=== PATIENT | female | born 1940 | race Caucasian/White ===

== ENCOUNTER 2017-09-12 07:30 | Day surgery (SDC) | payer OTHER ==
[2017-09-11 16:09] LABS: Absolute Lymphocytes (CBC) 1.9 K/uL (0.7-4.9); Absolute Monocytes 1.5 K/uL (0.1-1.3); Absolute Neutrophil 4.1 K/uL (1.8-8.0); Basophils % 0.8 % (0-1.3); Hematocrit 43.8 % (36.0-45.0); Lymphocytes % 24.5 % (15.3-44.8); MCH 31.4 pg (27.0-35.0); MCV 92.8 fL (80-100); MPV 7.3 fL (7.6-11.3); Monocytes % 19.1 % (3.3-12.3); RBC Red Blood Cell Count 4.72 M/uL (3.86-4.86)
[2017-09-11 16:24] LABS: Potassium 4.2 mEq/L (3.6-5.0)
--- NOTE | 2017-09-11 16:48 | EKG ---
Test Date: 2017-09-11 Test Time: 15:36:20 [employer] Teacher: HALIE MEASUREMENT RESULTS: Intervals: Rate: 74 ID: [id number] QRSD: 86 QT: 374 QTc: 415 [place]: P: 76 ID: [id number] QRS: 57 T: 50 INTERPRETIVE STATEMENTS: Normal sinus rhythm Normal ECG Compared to ECG 01/24/2017 10:09:42 ST (T wave) deviation no longer present Electronically Signed On 09-11-17 16:48:05 CDT by Rei Pickard
[2017-09-11 17:47] LABS: Protime INR 1.11
[2017-09-11 19:08] LABS: Blood Morphology Comment NOT SEEN (NOT SEEN); Platelet Estimate ADEQ; Urine White Blood Cell Casts OK
[2017-09-12] MEDS ORDERED: NA CHLORIDE 0.9% 500 ML ONE (07:41)
[2017-09-12 08:01] VITALS: TEMP 97
[2017-09-12] MEDS ORDERED: MIDAZOLAM HCL 2 MG/2 ML INJ ONE (08:43)
[2017-09-12] MEDS ORDERED: LIDOCAINE 1% 20 ML MDV ONE (08:43)
[2017-09-12] MEDS ORDERED: HEPA 1000U/500MLS 1,000 UNIT/500 ML BAG IV ONE (08:43)
[2017-09-12] MEDS ORDERED: METHYLPREDNISOLONE 125 MG INJ ONE (08:55)
[2017-09-12 11:12] VITALS: BP 132/54
[2017-09-12 11:14] VITALS: O2SAT 93
--- NOTE | 2017-09-13 10:35 | OP ---
Surgeon: Flako Sorenson MD Temporary Help Agency Referral Clerk: Lona Douglas. Final assessment at this time is severe right carotid stenosis. Indications: The patient was admitted as an outpatient for carotid angiography secondary to document ed carotid stenosis by Doppler. Procedure In Detail: She was prepped and draped in the routine sterile fashion. She was given 2 mg of Versed for IV sedation. Right common femoral artery access was obtained with a 6-Bhutanese sheath. Angiography there was normal. Angio-Seal was used to close the case. A right Renate catheter was u sed to cannulate the common carotid artery. Angiography there showed 90% stenosis of the proximal-to -mid right internal carotid artery. The left carotid was cannulated using a 3DRC catheter. Her left carotid showed a 50% stenosis. Total conscious sedation was 30 minutes. Complications: None. Estimated Blood Loss: 5 cc. Plan: The plan for the right carotid endarterectomy. The patient has her film with her. She will s ee Dr. Burnette as an outpatient and can have the procedure done. The case was discussed with the family. MERT/JAVAD Voice ID: [id number] Report ID: [id number]
== END 2017-09-12 11:35 | disposition home or self-care (01) ==
LOC: CCL 07:30
DX: I65.23 Occlusion and stenosis of bilateral carotid arteries (principal); I70.213 Atherosclerosis of native arteries of extremities with intermittent claudication, bilateral legs; I10 Essential (primary) hypertension; E78.6 Lipoprotein deficiency; E11.9 Type 2 diabetes mellitus without complications; J44.9 Chronic obstructive pulmonary disease, unspecified; Z88.3 Allergy status to other anti-infective agents
CPT/HCPCS: 36222; 36415; 80048; 82962 ×2; 85025; 85610; 85730; 93005; C1760; C1893; J2250; J2930

== ENCOUNTER 2017-09-29 15:30 | Emergency (ER) | payer OTHER ==
--- OUTSIDE RECORDS SUMMARY | 2017-09-29 15:32 | XMS REPORT | Clinical Summary ---
:1940 Author Organization [facility] Address [address] [place] [address] Phone Care Team Providers Name Role Phone Unavailable Primary Care Provider Unavailable Allergies Active Allergy Reactions Severity Noted Date Comments Povidone-Iodine Swelling 09/26/2017 Current Medications Prescription Sig. Disp. Refills Start End Date Status Date traZODone (DESYREL) 150 MG Take 75 mg by mouth Active tablet nightly. metFORMIN (GLUCOPHAGE) 500 Take 250 mg by mouth Active MG tablet 2 (two) times daily with breakfast and dinner . FLUoxetine (PROZAC) 40 MG Take 40 mg by mouth Active capsule daily. buPROPion (WELLBUTRIN SR) Take 150 mg by mouth Active 150 MG 12 hr tablet 2 (two) times daily. clopidogrel (PLAVIX) 75 mg Take 75 mg by mouth Active tablet daily. propranolol (INDERAL) 60 MG Take 60 mg by mouth Active tablet 2 (two) times daily. gabapentin (NEURONTIN) 300 Take 300 mg by mouth Active MG capsule 2 (two) times daily 1 bkt, 2 @@night . niacin (NIASPAN) 1000 MG CR Take 1,000 mg by Active tablet mouth nightly. cycloSPORINE (RESTASIS) Place 2 drops into Active 0.05 % ophthalmic emulsion both eyes 2 (two) times daily. montelukast (SINGULAIR) 10 Take 10 mg by mouth Active mg tablet nightly. umeclidinium-vilanterol Inhale 1 puff by Active (ANORO ELLIPTA) 62.5-25 mouth via inhaler mcg/actuation DsDv daily. cyanocobalamin (VITAMIN Inject 1,000 mcg Active B-12) 1,000 mcg/mL intramuscularly injection every 14 (fourteen) days. calcium carbonate-vitamin Take 1 tablet by Active D3 (CALCIUM-VITAMIN D) 500 mouth 2 (two) times mg(1,250mg) -200 unit per daily with breakfast tablet and dinner. vitamins A,C,U-scpm-aghejf Take by mouth 2 Active (PRESERVISION AREDS) (two) times daily. 14,320-226-200 qqth-tg-rzrq Cap multivitamin per tablet Take 1 tablet by Active mouth daily. TURMERIC ROOT EXTRACT ORAL Take by mouth Active nightly. carboxymethylcellulose Place 1 drop into Active (REFRESH PLUS) 0.5 % Dpet both eyes 3 (three) ophthalmic solution times daily as needed. lamoTRIgine (LAMICTAL) 150 Take 150 mg by mouth Active MG tablet daily. thyroid, pork, 90 mg Tab Take 30 mg by mouth Active daily. Active Problems No known active problems Encounters Date Type Specialty Care Team Description 09/26/2017 Hospital Encounter Jean Marie Burnette MD Arrived 09/26/2017 Office Visit Cardiology Jean Marie Burnette MD Bilateral carotid artery disease (HCC) (Primary Dx) 09/26/2017 Orders Only Cardiology Jean Marie Burnette MD Bilateral carotid artery disease (HCC) after 09/28/2016 Family History Medical History Relation Name Comments Heart disease Father Heart disease Mother Relation Name Status Comments Father Mother Social History Tobacco Use Types Packs/Day Years Used Date Former Smoker Smokeless Tobacco: Never Used Tobacco Cessation: Counseling Given: No Comments: quit 1994 Alcohol Use Drinks/Week oz/Week Comments No Sex Assigned at Date Recorded Not on file Last Filed Vital Signs Vital Sign Reading Time Taken Blood Pressure 190/86 09/26/2017 8:12 AM CDT Pulse 117 09/26/2017 8:12 AM CDT Temperature 36.2 C (97.2 F) 09/26/2017 8:12 AM CDT Respiratory Rate 18 09/26/2017 8:12 AM CDT Oxygen Saturation 93% 09/26/2017 8:12 AM CDT Inhaled Oxygen Concentration - - Weight 80.2 kg (176 lb 14.4 oz) 09/26/2017 8:12 AM CDT Height 157.5 cm (5' 2") 09/26/2017 8:12 AM CDT Body Mass Index 32.36 09/26/2017 8:12 AM CDT Plan of Treatment Date Type Specialty Care Team Description 10/05/2017 Surgery Jean Marie Burnette MD ENDARTERECTOMY,CAROTID [address] [place] [address] [phone] 10/05/2017 Procedure Pass 10/05/2017 Hospital Encounter Jean Marie Burnette MD [address] [place] [address] [phone] Health Maintenance Due Date Last Done Comments INFLUENZA VACCINE 03/05/2018 Results TRANSFUSION SERVICE REPORT - SCAN (09/27/2017 5:44 PM)XR chest 2 views (2017 11:33 AM) Specimen Performing Laboratory GE RIS Narrative FINAL REPORT Chest two views INDICATION: Preoperative exam. Bilateral carotid artery disease. COMPARISON: None available IMPRESSION: Lung hyperinflation may reflect obstructive lung disease. Bibasilar opacities suggest atelectasis or scarring. Biapical opacities also suggest scarring and/or post treatment changes. Advise follow up imaging to confirm stability. No consolidation, edema, pleural effusion, or pneumothorax is seen. Heart size is within normal limits. Mild aortic tortuosity and calcification, osteopenia, and degenerative spine changes are present. There has been prior mastectomy and axillary dissection. Signed: Angely Webber MD Report Verified Date/Time:09/26/2017 11:54:23 Reading Location: [facility] Reading Room Procedure Note Interface, External Ris In - 09/26/2017 11:56 AM CDT FINAL REPORT Chest two views INDICATION: Preoperative exam. Bilateral carotid artery disease. COMPARISON: None available IMPRESSION: Lung hyperinflation may reflect obstructive lung disease. Bibasilar opacities suggest atelectasis or scarring. Biapical opacities also suggest scarring and/or post treatment changes. Advise follow up imaging to confirm stability. No consolidation, edema, pleural effusion, or pneumothorax is seen. Heart size is within normal limits. Mild aortic tortuosity and calcification, osteopenia, and degenerative spine changes are present. There has been prior mastectomy and axillary dissection. Signed: Angely Webber MD Report Verified Date/Time: 09/26/2017 11:54:23 Reading Location: [facility] Reading Room Type and screen, automated (09/26/2017 11:13 AM) Component Value Ref Range ABO/RH AUTOMATED (BEAKER) O POSITIVE Ab Scrn NEGATIVE Specimen Performing Laboratory Blood [address] [address] CBC with platelet count + automated diff (09/26/2017 11:13 AM) Component Value Ref Range WBC 8.4 3.5 - 10.5 K/L RBC 4.48 3.93 - 5.22 M/L Hemoglobin 14.3 11.2 - 15.7 GM/DL Hematocrit 42.9 34.1 - 44.9 % MCV 95.8 (H) 79.4 - 94.8 fL MCH 31.9 25.6 - 32.2 pg MCHC 33.3 32.2 - 35.5 GM/DL RDW 14.0 11.7 - 14.4 % Platelets 290 150 - 450 K/CU MM MPV 9.0 (L) 9.4 - 12.3 fL nRBC 0 0 - 0 /100 WBC % Neutros 68 % % Lymphs 18 % % Monos 11 % % Eos 1 % % Baso 1 % # Neutros 5.75 1.56 - 6.13 K/L # Lymphs 1.49 1.18 - 3.74 K/L # Monos 0.90 (H) 0.24 - 0.36 K/L # Eos 0.11 0.04 - 0.36 K/L # Baso 0.09 (H) 0.01 - 0.08 K/L Immature Granulocytes-Relative 1 0 - 1 % Specimen Performing Laboratory Blood [address] [address] Prothrombin time/INR (09/26/2017 11:13 AM) Component Value Ref Range Protime 14.3 11.7 - 14.7 seconds INR 1.1 <=5.9 Specimen Performing Laboratory Blood [address] [address] Narrative RECOMMENDED COUMADIN/WARFARIN INR THERAPY RANGES STANDARD DOSE: 2.0 - 3.0 Includes: PROPHYLAXIS for venous thrombosis, systemic embolization; TREATMENT for venous thrombosis and/or pulmonary embolus. HIGH RISK: Target INR is 2.5-3.5 for patients with mechanical heart valves. CBC with platelet count + automated diff (09/26/2017 11:13 AM) Specimen Performing Laboratory Blood Narrative The following orders were created for panel order CBC with platelet count + automated diff. Procedure Abnormality Status --------- ------ CBC with platelet count ...[[id number]]AbnormalFinal result Please view results for these tests on the individual orders. Hemoglobin A1c (09/26/2017 11:13 AM) Component Value Ref Range Hemoglobin A1C 5.9 4.3 - 6.1 % Specimen Performing Laboratory Blood [address] [address] Basic Metabolic Panel (09/26/2017 11:13 AM) Component Value Ref Range Sodium 137 136 - 145 meq/L Potassium 4.2 3.5 - 5.1 meq/L Chloride 105 98 - 107 meq/L CO2 22 22 - 29 meq/L BUN 15 7 - 21 mg/dL Creatinine 0.84 0.57 - 1.25 mg/dL Glucose 92 70 - 105 mg/dL Calcium 9.8 8.4 - 10.2 mg/dL EGFR 66Comment: ESTIMATED GFR IS NOT ACCURATE mL/min/1.73 sq m CREATININE CLEARANCE IN PREDICTING GLOMERULAR FILTRATION RATE. ESTIMATED GFR IS NOT APPLICABLE FOR DIALYSIS PATIENTS. Specimen Performing Laboratory Blood [address] [address] ECG 12 lead (May substitute report if done w/in last 3 months) (09/26/2017 10: 50 AM) Specimen Performing Laboratory [place] [facility] Narrative Ventricular Rate 90 BPM Atrial Rate 90 BPM P-R Interval 156 ms QRS Duration 90 ms Q-T Interval 380 ms QTC Calculation(Bazett) [address] 118 degrees Normal sinus rhythm Abnormal QRS-T angle, consider primary T wave abnormality Abnormal ECG No previous ECGs available Confirmed by Cece Dorantes Alireaz ([id number]) on 09/27/2017 10:24:09 PM Procedure Note Interface, External Ris In - 09/27/2017 10:24 PM CDT Ventricular Rate 90 BPM Atrial Rate 90 BPM P-R Interval 156 ms QRS Duration 90 ms Q-T Interval 380 ms QTC Calculation(Bazett) [address] 58 [address] 118 degrees Normal sinus rhythm Abnormal QRS-T angle, consider primary T wave abnormality Abnormal ECG No previous ECGs available Confirmed by Cece Dorantes Alireaz ([id number]) on 09/27/2017 10:24:09 PM after 09/28/2016
--- OUTSIDE RECORDS SUMMARY | 2017-09-29 15:32 | XMS REPORT ---
:1940 [facility] Address [facility] [address] [place] [address] Care Team Providers Name Role Phone ANNETTE MEZA Unavailable Unavailable Problems This patient has no known problems. Allergies, Adverse Reactions, Alerts This patient has no known allergies or adverse reactions. Medications This patient has no known medications. Results Test Description Test Time Test Comments Text Results Atomic Results Result Comments HEMOGLOBIN A1C 2017-09-26 16:54:00 Test Item Value Reference Range Comments HEMOGLOBIN A1C (BEAKER) (test cwwz=291) 5.9 % 4.3-6.1 BASIC METABOLIC [id number] 12:35:00 Test Item Value Reference Range Comments SODIUM (BEAKER) (test 137 meq/L 136-145 dhlg=998) POTASSIUM (BEAKER) (test 4.2 meq/L 3.5-5.1 brgm=221) CHLORIDE (BEAKER) (test 105 meq/L 98-107 kldy=636) CO2 (BEAKER) (test 22 meq/L 22-29 mjmw=408) BLOOD UREA NITROGEN 15 mg/dL 7-21 (BEAKER) (test lpwq=077) CREATININE (BEAKER) (test 0.84 mg/dL 0.57-1.25 phen=729) GLUCOSE RANDOM (BEAKER) 92 mg/dL 70-105 (test uqkt=089) CALCIUM (BEAKER) (test 9.8 mg/dL 8.4-10.2 bmhe=485) EGFR (BEAKER) (test 66 mL/min/1.73 sq m ESTIMATED GFR IS NOT wzjm=1839) ACCURATE CREATININE CLEARANCE IN PREDICTING GLOMERULAR FILTRATION RATE. ESTIMATED GFR IS NOT APPLICABLE FOR DIALYSIS PATIENTS. PROTHROMBIN [id number] 12:34:00 Test Item Value Reference Range Comments PROTIME (BEAKER) (test ovir=571) 14.3 seconds 11.7-14.7 INR (BEAKER) (test hlho=954) 1.1 <=5.9 RECOMMENDED COUMADIN/WARFARIN INR THERAPY RANGESSTANDARD DOSE: 2.0 - 3.0 Includes: PROPHYLAXIS forvenous thrombosis, systemic embolization; TREATMENT for venous thrombosis and/or pulmonary embolus.HIGH RISK: Target INR is 2.5-3.5 for patients with mechanical heart valves.CBC W/PLT COUNT & AUTO [id number] 12:30:00 Test Item Value Reference Range Comments WHITE BLOOD CELL COUNT (BEAKER) (test cxmp=236) 8.4 K/ L 3.5-10.5 RED BLOOD CELL COUNT (BEAKER) (test gaip=916) 4.48 M/ L 3.93-5.22 HEMOGLOBIN (BEAKER) (test kasd=135) 14.3 GM/DL 11.2-15.7 HEMATOCRIT (BEAKER) (test zhhl=962) 42.9 % 34.1-44.9 MEAN CORPUSCULAR VOLUME (BEAKER) (test kjye=134) 95.8 fL 79.4-94.8 MEAN CORPUSCULAR HEMOGLOBIN (BEAKER) (test 31.9 pg 25.6-32.2 gzoy=585) MEAN CORPUSCULAR HEMOGLOBIN CONC (BEAKER) (test 33.3 GM/DL 32.2-35.5 truu=924) RED CELL DISTRIBUTION WIDTH (BEAKER) (test 14.0 % 11.7-14.4 gctz=715) PLATELET COUNT (BEAKER) (test elpi=511) 290 K/CU MM 150-450 MEAN PLATELET VOLUME (BEAKER) (test lmvz=355) 9.0 fL 9.4-12.3 NUCLEATED RED BLOOD CELLS (BEAKER) (test 0 /100 WBC 0-0 hdhk=088) NEUTROPHILS RELATIVE PERCENT (BEAKER) (test 68 % wqdw=943) LYMPHOCYTES RELATIVE PERCENT (BEAKER) (test 18 % vial=444) MONOCYTES RELATIVE PERCENT (BEAKER) (test 11 % wfck=200) EOSINOPHILS RELATIVE PERCENT (BEAKER) (test 1 % bzqi=330) BASOPHILS RELATIVE PERCENT (BEAKER) (test 1 % uadx=642) NEUTROPHILS ABSOLUTE COUNT (BEAKER) (test 5.75 K/ L 1.56-6.13 nklc=880) LYMPHOCYTES ABSOLUTE COUNT (BEAKER) (test 1.49 K/ L 1.18-3.74 lusu=391) MONOCYTES ABSOLUTE COUNT (BEAKER) (test 0.90 K/ L 0.24-0.36 vlgu=570) EOSINOPHILS ABSOLUTE COUNT (BEAKER) (test 0.11 K/ L 0.04-0.36 jmyb=508) BASOPHILS ABSOLUTE COUNT (BEAKER) (test 0.09 K/ L 0.01-0.08 qvrd=150) IMMATURE GRANULOCYTES-RELATIVE PERCENT (BEAKER) 1 % 0-1 (test wnla=7944) RAD, CHEST, 2 [id number] 11:54:00Reason for Exam:->Pre-OpFINAL REPORT Chest two views INDICATION: Preoperative exam. Bilateral carotidartery disease. COMPARISON: None available IMPRESSION: Lung hyperinflation may reflect obstructive lung disease. Bibasilar opacities suggest atelectasis or scarring. Biapical opacities also suggest scarring and/ or post treatment changes. Advise follow up imaging to confirm stability. No consolidation,edema, pleural effusion, or pneumothorax is seen. Heart size is within normal limits. Mild aortic tortuosity and calcification, osteopenia, and degenerative spine changes are present. There has been prior mastectomy and axillary dissection. Signed: Angely Webber Verified Date/Time: 09/26/2017 11:54:23 Reading Location: [facility] Reading Room
[2017-09-29] MEDS ORDERED: TETANUS & DIPHTHERIA TOX,ADULT 0.5 ML VIAL ONE (17:14)
--- NOTE | 2017-09-29 17:16 | ER ---
Nurse's Notes [facility] Name: Lizbeth Plata Age: 77 yrs Sex: Female : 1940 Arrival Date: 09/29/2017 Time: 15:33 Bed 10 Private MD: Diagnosis: Cellulitis of right lower limb Presentation: 09/29 15:34 Presenting complaint: Patient states: i slipped and hurt my R lower leg and had an open hj wound, it happened around Monday of this week; i applied Neosporin; denies fever and chills;. Transition of care: patient was not received from another setting of care. Onset of symptoms was September 29, 2017. Initial Sepsis Screen: Does the patient meet any 2 criteria? No. Patient's initial sepsis screen is negative. Does the patient have a suspected source of infection? No. Patient's initial sepsis screen is negative. Care prior to arrival: None. 15:34 Method Of Arrival: Ambulatory 15:34 Acuity: SYLVIA 4 hj Triage Assessment: 15:39 General: Appears in no apparent distress. uncomfortable, Behavior is calm, cooperative, hj appropriate for age. Pain: Complains of pain in right chavez. Historical: - Allergies: 15:39 Betadine; hj 15:39 Sulfa (Sulfonamide Antibiotics); hj 15:39 Iodine; hj - Home Meds: 15:39 Metformin Oral [Active]; thyroid (pork) oral oral 1 tab once daily [Active]; trazodone hj 150 mg Oral tab 0.5 tab nightly [Active]; Prozac 40 mg Oral cap 1 cap once daily [Active]; Wellbutrin oral 1 tab daily [Active]; Neurontin 300 mg Oral cap 1 cap nightly [Active]; Niaspan Extended-Release 1,000 mg Oral Tb24 1 tab once daily [Active]; Restasis 0.05 % ophthalmic dpet 1 drop 2 times per day [Active]; Singulair 10 mg Oral tab 1 tab once daily [Active]; Lamictal 150 mg Oral tab 1 tab once daily [Active]; - PMHx: 15:39 Hypothyroidism; Parkinsons; hj - PSHx: 15:39 Bilateral Breast Mastectomy; hj - Immunization history:: Adult Immunizations up to date. - Social history:: Smoking status: Patient/guardian denies using tobacco, Patient/guardian denies using alcohol. Screenin:23 Abuse screen: Denies threats or abuse. Denies injuries from another. Nutritional hj screening: No deficits noted. Tuberculosis screening: No symptoms or risk factors identified. Fall Risk None identified. Assessment: 17:21 General: Appears in no apparent distress. Behavior is calm, cooperative. Pain: iw Complains of pain in right chvaez. Neuro: Level of Consciousness is awake, alert, obeys commands, Oriented to person, place, time, situation, Moves all extremities. Cardiovascular: Patient's skin is warm and dry. Respiratory: Respiratory effort is even, unlabored, Respiratory pattern is regular, symmetrical. Derm: Wound noted right chavez. Musculoskeletal: Range of motion: intact in all extremities. Vital Signs: 15:40 BP 151 / 62; Pulse 85; Resp 18; Temp 97.8(O); Pulse Ox 97% on R/A; Weight 79.38 kg; hj Height 5 ft. 2 in. (157.48 cm); Pain 0/10; 15:40 Body Mass Index 32.01 (79.38 kg, 157.48 cm) hj ED Course: 15:33 Patient arrived in ED. mr 15:36 Triage completed. hj 15:40 Arm band placed on right wrist. hj 16:18 Umair Crowley PA is PHCP. cp 16:18 Jimy Marino MD is Attending Physician. cp 16:24 Patient has correct armband on for positive identification. Placed in gown. Bed in low hj position. Call light in reach. Adult w/ patient. 17:02 Laurel Bonilla, RN is Primary Nurse. iw 17:22 No provider procedures requiring assistance completed. Patient did not have IV access iw during this emergency room visit. Administered Medications: 17:18 Drug: Tetanus-Diphtheria Toxoid Adult 0.5 ml {Health Support Specialist: [employer]. Exp: iw 01/05/2020. Lot #: [id number]. } Route: IM; Site: right gluteus; Outcome: 17:15 Discharge ordered by . cp 18:04 Patient left the ED. iw Signatures: Caridad Schafer Laurel Bonilla, RN RN Alan Rose RN RN Umair Crowley PA PA cp Corrections: (The following items were deleted from the chart) 15:43 15:40 Pulse 85bpm; Resp 18bpm; Pulse Ox 97% RA; Temp 97.8F Oral; 79.38 kg; Height 5 ft. hj 2 in.; BMI: 32.0; Pain 0/10; hj
--- NOTE | 2017-09-29 17:16 | EDPHYS ---
Physician Documentation [facility] Name: Lizbeth Plata Age: 77 yrs Sex: Female : 1940 Arrival Date: 09/29/2017 Time: 15:33 Bed 10 Private MD: ED Physician Jimy Marino HPI: 09/29 16:58 This 77 yrs old Female presents to ER via Ambulatory with complaints of Wound cp Infection. 16:58 The patient presents with an injury. cp 16:58 The complaints affect the right chavez. cp 16:58 Context: misstep causing abrasion to anterior lower leg. cp 16:58 Onset: The symptoms/episode began/occurred 3 day(s) ago. Associated signs and symptoms: cp Pertinent positives: swelling, warmth, Pertinent negatives calf tenderness, fever. Treatment prior to arrival includes: over the counter medications, Neosporin. Historical: - Allergies: 15:39 Betadine; hj 15:39 Sulfa (Sulfonamide Antibiotics); hj 15:39 Iodine; hj - Home Meds: 15:39 Metformin Oral [Active]; thyroid (pork) oral oral 1 tab once daily [Active]; trazodone hj 150 mg Oral tab 0.5 tab nightly [Active]; Prozac 40 mg Oral cap 1 cap once daily [Active]; Wellbutrin oral 1 tab daily [Active]; Neurontin 300 mg Oral cap 1 cap nightly [Active]; Niaspan Extended-Release 1,000 mg Oral Tb24 1 tab once daily [Active]; Restasis 0.05 % ophthalmic dpet 1 drop 2 times per day [Active]; Singulair 10 mg Oral tab 1 tab once daily [Active]; Lamictal 150 mg Oral tab 1 tab once daily [Active]; - PMHx: 15:39 Hypothyroidism; Parkinsons; hj - PSHx: 15:39 Bilateral Breast Mastectomy; hj - Immunization history:: Adult Immunizations up to date. - Social history:: Smoking status: Patient/guardian denies using tobacco, Patient/guardian denies using alcohol. ROS: 17:00 Constitutional: Negative for body aches, chills, fever, poor PO intake. cp 17:00 Eyes: Negative for injury, pain, redness, and discharge. cp 17:00 Cardiovascular: Negative for chest pain, edema, palpitations. 17:00 Respiratory: Negative for cough, shortness of breath, wheezing. 17:00 Skin: Positive for cellulitis, of the anterior aspect right lower leg. 17:00 All other systems are negative. Exam: 17:05 Constitutional: The patient appears in no acute distress, alert, awake, non-toxic, well cp developed, well nourished. 17:05 Head/Face: Normocephalic, atraumatic. cp 17:05 Eyes: Periorbital structures: appear normal, Conjunctiva: normal, no exudate, no cp injection, Lids and lashes: appear normal, bilaterally. 17:05 ENT: External ear(s): are unremarkable, Nose: is normal, Mouth: is normal. 17:05 Chest/axilla: Inspection: normal. 17:05 Cardiovascular: Rate: normal. 17:05 Respiratory: the patient does not display signs of respiratory distress, Respirations: normal, no use of accessory muscles, no retractions, no splinting, no tachypnea, labored breathing, is not present. 17:05 Abdomen/GI: Exam negative for discomfort, distension, guarding, Inspection: abdomen appears normal. 17:05 Skin: abscess, not appreciated, cellulitis, that is mild, well demarcated, on the anterior aspect right lower leg. Vital Signs: 15:40 BP 151 / 62; Pulse 85; Resp 18; Temp 97.8(O); Pulse Ox 97% on R/A; Weight 79.38 kg; hj Height 5 ft. 2 in. (157.48 cm); Pain 0/10; 15:40 Body Mass Index 32.01 (79.38 kg, 157.48 cm) MDM: 16:18 Patient medically screened. cp 17:15 Data reviewed: vital signs, nurses notes, and as a result, I will discharge patient. cp Administered Medications: 17:18 Drug: Tetanus-Diphtheria Toxoid Adult 0.5 ml {Escrow Manager: [employer]. Exp: iw 01/05/2020. Lot #: [id number]. } Route: IM; Site: right gluteus; Disposition: 18:56 Co-signature as Attending Physician, Jimy Marino MD I agree with the assessment and kdr plan of care. Disposition: 09/29/17 17:15 Discharged to Home. Impression: Cellulitis of right lower limb. - Condition is Stable. - Discharge Instructions: Cellulitis. - Prescriptions for Clindamycin HCl 300 mg Oral Capsule - take 1 capsule by ORAL route every 6 hours for 10 days; 40 capsule. - Medication Reconciliation Form, Thank You Letter, Antibiotic Education, Prescription Opioid Use form. - Follow up: Private Physician; When: 2 - 3 days; Reason: Wound Recheck. - Problem is new. - Symptoms are unchanged. Signatures: Jimy Marino MD MD kdr Williams, Irene, RN RN iw Alan Rose RN RN Umair Arana PA PA cp
[2017-09-29 18:07] VITALS: BP 151/62; TEMP 97.8; O2SAT 97
== END 2017-09-29 18:04 | disposition home or self-care (01) ==
LOC: ER 15:30
DX: L03.115 Cellulitis of right lower limb (principal); E03.9 Hypothyroidism, unspecified; G20 Parkinson's disease; Z88.2 Allergy status to sulfonamides; Z91.09 Other allergy status, other than to drugs and biological substances
CPT/HCPCS: 90714; 99282

== ENCOUNTER 2018-01-07 09:54 | Inpatient (IN) | payer OTHER ==
--- OUTSIDE RECORDS SUMMARY | 2018-01-07 09:56 | XMS REPORT | Clinical Summary ---
:1940 Author Organization [facility] Address [address] [place] [address] Phone Care Team Providers Name Role Phone Unavailable Primary Care Provider Unavailable Allergies Active Allergy Reactions Severity Noted Date Comments Povidone-Iodine Swelling 09/26/2017 Current Medications Prescription Sig. Disp. Refills Start End Status Date Date traZODone (DESYREL) 150 Take 75 mg by Active MG tablet mouth nightly. FLUoxetine (PROZAC) 40 MG Take 40 mg by Active capsule mouth daily. buPROPion (WELLBUTRIN SR) Take 150 mg by Active 150 MG 12 hr tablet mouth 2 (two) times daily. clopidogrel (PLAVIX) 75 Take 75 mg by Active mg tablet mouth daily. propranolol (INDERAL) 60 Take 60 mg by Active MG tablet mouth 2 (two) times daily. gabapentin (NEURONTIN) Take 300 mg by Active 300 MG capsule mouth 2 (two) times daily 1 bkt, 2 @@night . niacin (NIASPAN) 1000 MG Take 1,000 mg by Active CR tablet mouth nightly. cycloSPORINE (RESTASIS) Place 2 drops into Active 0.05 % ophthalmic both eyes 2 (two) emulsion times daily. montelukast (SINGULAIR) Take 10 mg by Active 10 mg tablet mouth nightly. umeclidinium-vilanterol Inhale 1 puff by Active (ANORO ELLIPTA) 62.5-25 mouth via inhaler mcg/actuation DsDv daily. cyanocobalamin (VITAMIN Inject 1,000 mcg Active B-12) 1,000 mcg/mL intramuscularly injection every 14 (fourteen) days. calcium carbonate-vitamin Take 1 tablet by Active D3 (CALCIUM-VITAMIN D) mouth 2 (two) 500 mg(1,250mg) -200 unit times daily with per tablet breakfast and dinner. vitamins Take by mouth 2 Active A,C,F-mbza-rmxnhs (two) times daily. (PRESERVISION AREDS) [phone] uxzg-cd-khsn Cap multivitamin per tablet Take 1 tablet by Active mouth daily. TURMERIC ROOT EXTRACT Take by mouth Active ORAL nightly. carboxymethylcellulose Place 1 drop into Active (REFRESH PLUS) 0.5 % Dpet both eyes 3 ophthalmic solution (three) times daily as needed. lamoTRIgine (LAMICTAL) Take 150 mg by Active 150 MG tablet mouth daily. thyroid, pork, 90 mg Tab Take 30 mg by Active mouth daily. aspirin 325 MG EC tablet Take 1 tablet (325 0 10/07/ Active mg total) by mouth 18 019 daily. metFORMIN (GLUCOPHAGE) Take 0.5 tablets 0 10/08/19 Active 500 MG tablet (250 mg total) by 18 mouth 2 (two) times daily with breakfast and dinner Restart when your diet returns to normal. metFORMIN (GLUCOPHAGE) Take 250 mg by Discontinued 500 MG tablet mouth 2 (two) 018 times daily with breakfast and dinner . metFORMIN (GLUCOPHAGE) Take 0.5 tablets 0 10/07/20 Discontinued 500 MG tablet (250 mg total) by 18 018 mouth 2 (two) times daily with breakfast and dinner Restart when your diet return to normal. Active Problems Problem Noted Date Carotid stenosis, asymptomatic 10/06/2017 History of depression 10/06/2017 Hypothyroidism 10/06/2017 History of mastectomy, bilateral: with radiation 10/06/2017 Carotid stenosis, asymptomatic, right 10/05/2017 Carotid artery occlusion Sleep apnea CPAP (continuous positive airway pressure) dependence Asthma COPD (chronic obstructive pulmonary disease) (HCC) Parkinson disease (HCC) Diabetes mellitus type 2, noninsulin dependent (HCC) Hyperlipidemia Hypertension Breast cancer (HCC) Overview: breast Encounters Date Type Specialty Care Team Description 10/05/2017 - Hospital Encounter Cardiology Jean Marie Burnette, Carotid stenosis, 10/06/2017 asymptomatic, right (Primary Dx) 10/05/2017 Procedure Pass 10/05/2017 Surgery Jean Marie Burnette, ENDARTERECTOMY,CAROTID 10/04/2017 Anesthesia Event Satnam Alexander MD 09/26/2017 Hospital Encounter Jean Marie Burnette MD 09/26/2017 Office Visit Cardiology Jean Marie Burnette, Bilateral carotid MD artery disease (HCC) (Primary Dx);Bilateral carotid artery occlusion;Sleep apnea, unspecified type;CPAP (continuous positive airway pressure) dependence;Asthma, unspecified asthma severity, unspecified whether complicated, unspecified whether persistent;Chronic obstructive pulmonary disease, unspecified COPD type (HCC);Parkinson disease (HCC);Diabetes mellitus type 2, noninsulin dependent (HCC) 09/26/2017 Orders Only Cardiology Jean Marie Brunette Bilateral carotid MD artery disease (HCC) after 01/06/2017 Family History Medical History Relation Name Comments Heart disease Father Heart disease Mother Relation Name Status Comments Father Mother Social History Tobacco Use Types Packs/Day Years Used Date Former Smoker Quit: 1984 Smokeless Tobacco: Never Used Tobacco Cessation: Counseling Given: No Comments: quit 1994 Alcohol Use Drinks/Week oz/Week Comments No Sex Assigned at Date Recorded Not on file Last Filed Vital Signs Vital Sign Reading Time Taken Blood Pressure 132/61 10/06/2017 11:50 AM CDT Pulse 82 10/06/2017 11:50 AM CDT Temperature 35.8 C (96.5 F) 10/06/2017 11:50 AM CDT Respiratory Rate 20 10/06/2017 11:50 AM CDT Oxygen Saturation 94% 10/06/2017 11:50 AM CDT Inhaled Oxygen Concentration - - Weight 78.6 kg (173 lb 4.8 oz) 10/06/2017 7:37 AM CDT Height 157.5 cm (5' 2") 10/05/2017 7:42 AM CDT Body Mass Index 31.7 10/06/2017 7:37 AM CDT Plan of Treatment Health Maintenance Due Date Last Done Comments INFLUENZA VACCINE 03/05/2018 Procedures Procedure Name Priority Date/Time Associated Diagnosis Comments ENDARTERECTOMY,CAROTID 10/05/2017 1:19 PM Stenosis of right CDT carotid artery after 01/06/2017 Results RHYTHM STRIP - SCAN (10/09/2017 11:00 AM)CBC (Hemogram only) (10/06/2017 3:44 AM) Component Value Ref Range WBC 7.7 3.5 - 10.5 K/L RBC 3.84 (L) 3.93 - 5.22 M/L Hemoglobin 11.9 11.2 - 15.7 GM/DL Hematocrit 37.3 34.1 - 44.9 % MCV 97.1 (H) 79.4 - 94.8 fL MCH 31.0 25.6 - 32.2 pg MCHC 31.9 (L) 32.2 - 35.5 GM/DL RDW 14.5 (H) 11.7 - 14.4 % Platelets 245 150 - 450 K/CU MM MPV 9.2 (L) 9.4 - 12.3 fL nRBC 0 0 - 0 /100 WBC Specimen Performing Laboratory Blood [address] [address] Magnesium (10/06/2017 3:44 AM) Component Value Ref Range Magnesium 1.6 1.6 - 2.6 mg/dL Specimen Performing Laboratory Blood [address] [address] Basic Metabolic Panel (10/06/2017 3:44 AM)Only the most recent of2 resultswithin the time period is included. Component Value Ref Range Sodium 135 (L) 136 - 145 meq/L Potassium 4.2 3.5 - 5.1 meq/L Chloride 104 98 - 107 meq/L CO2 21 (L) 22 - 29 meq/L BUN 16 7 - 21 mg/dL Creatinine 0.82 0.57 - 1.25 mg/dL Glucose 99 70 - 105 mg/dL Calcium 8.3 (L) 8.4 - 10.2 mg/dL EGFR 68Comment: ESTIMATED GFR IS NOT ACCURATE mL/min/1.73 sq m CREATININE CLEARANCE IN PREDICTING GLOMERULAR FILTRATION RATE. ESTIMATED GFR IS NOT APPLICABLE FOR DIALYSIS PATIENTS. Specimen Performing Laboratory [address] [address] POC-Glucose meter (10/05/2017 5:34 PM)Only the most recent of2 resultswithin the time period is included. Component Value Ref Range POC-Glucose Meter 122 (H)Comment: TESTED AT [address] 70 - 110 mg/[place] [address] Specimen Performing Laboratory Blood [address] [address] Tissue Exam (10/05/2017 1:00 PM) Component Value Ref Range Case Report Surgical Pathology Report Case: [id number] Authorizing Provider:Jean Marie Burnette MDCollected: 10/05/2017 1300 Ordering Location: [facility] Received: 10/05/2017 1424 PERIOPERATIVE SERVICES Pathologist: Rubens Lipscomb MD Specimen:Plaque, RIGHT CAROTID ARTERY PLAQUE DIAGNOSIS ARTERY, RIGHT CAROTID, ENDARTERECTOMY: CALCIFIC ATHEROSCLEROTIC PLAQUE Signing Pathologist Direct Phone Line: [phone] CPT Code(s) 93796; 86727 CLINICAL HISTORY Carotid stenosis SPECIMEN SOURCE Right carotid artery plaque GROSS DESCRIPTION The specimen is received in saline labeled with the patient's information labeled "right carotid artery plaque" and consists of a tubular shaped segment of calcified tissue measuring 2.5 cm in length x 0.5 cm in diameter. The specimen is sectioned, submitted entirely A1 for decalcification. CG/pl Specimen Performing Laboratory [place] [address] TRANSFUSION SERVICE REPORT - SCAN (09/27/2017 5:44 [...] MD Report Verified Date/Time:09/26/2017 11:54:23 Reading Location: [facility] Reading Room Procedure Note Interface, External Ris [...] Report Verified Date/Time: 09/26/2017 11:54:23 Reading Location: [facility] Reading Room Type and screen, automated (09/26/2017 11:13 AM) Component Value Ref Range ABO/RH AUTOMATED (BEAKER) O POSITIVE Ab Scrn NEGATIVE Specimen Performing Laboratory Blood [address] [address] CBC with platelet count + automated diff [...] - 1 % Specimen Performing Laboratory Blood [address] [address] Prothrombin time/INR (09/26/2017 11:13 AM) Component Value Ref Range Protime 14.3 11.7 - 14.7 seconds INR 1.1 <=5.9 Specimen Performing Laboratory Blood [address] [address] Narrative RECOMMENDED COUMADIN/WARFARIN INR THERAPY RANGES STANDARD [...] Status --------- ------ CBC with platelet count ...[[id number]]AbnormalFinal result Please view results for these tests on the individual orders. Hemoglobin A1c (09/26/2017 11:13 AM) Component Value Ref Range Hemoglobin A1C 5.9 4.3 - 6.1 % Specimen Performing Laboratory Blood [address] [address] ECG 12 lead (May substitute report if done w/in last 3 months) (09/26/2017 10: 50 AM) Specimen Performing Laboratory GE MUSE Narrative Ventricular Rate 90 BPM Atrial Rate 90 BPM P-R Interval 156 ms QRS Duration 90 ms Q-T Interval 380 ms QTC Calculation(Bazett) 464 ms R [place] 58 degrees [place] 118 degrees Normal sinus rhythm Abnormal QRS-T [...] 380 ms QTC Calculation(Bazett) 464 ms R [place] 58 degrees T [place] 118 degrees Normal sinus rhythm Abnormal QRS-T angle, consider primary T wave abnormality Abnormal ECG No previous ECGs available Confirmed by Cece Dorantes Alireaz ([id number]) on 09/27/2017 10:24:09 PM after 01/06/2017
--- OUTSIDE RECORDS SUMMARY | 2018-01-07 09:57 | XMS REPORT ---
:1940 Author Organization [facility] Address [address] [place] [address] [address] [place] [address] Care Team Providers Name Role Phone SILVINA BURNETTE Unavailable Unavailable Problems This patient has no known problems. Allergies, Adverse Reactions, Alerts This patient has no known allergies or adverse reactions. Medications This patient has no known medications. Results Test Description Test Time Test Comments Text Results Atomic Results Result Comments TISSUE EXAM 2017-10-10 13:16:00 Surgical Pathology Report Case: [id number] Authorizing Provider: Silvina Burnette MD Collected: 10/05/2017 1300 Ordering Location: [facility] Received: 10/05/2017 1424 PERIOPERATIVE SERVICES Pathologist: Rubens Lipscomb MD Specimen: Plaque, RIGHT CAROTID ARTERY PLAQUE ARTERY, RIGHT CAROTID, ENDARTERECTOMY:CALCIFIC ATHEROSCLEROTIC PLAQUE Signing Pathologist Direct Phone Line: [phone] signed by Rubens Lipscomb MD on 10/10/2017 at 1:16 [id number] stenosisRight carotid artery plaqueThe specimen is received in saline labeled with the patient's information labeled "right carotid artery plaque" and consists of a tubular shaped segment of calcified tissue measuring 2.5 cm in length x 0.5 cm in diameter. The specimen is sectioned, submitted entirely A1 for decalcification. CG/pl POCT-GLUCOSE METER 2017-10-09 05:33:00 Test Item Value Reference Range Comments POC-GLUCOSE METER (BEAKER) (test 122 mg/dL 70-110 TESTED AT [facility] [address] [facility] qocq=9939) [facility] [address] [id number] 05:17:00 Test Item Value Reference Range Comments MAGNESIUM (BEAKER) (test mbud=994) 1.6 mg/dL 1.6-2.6 BASIC METABOLIC [id number] 05:17:00 Test Item Value Reference Range Comments SODIUM (BEAKER) (test 135 meq/L 136-145 rkzn=804) POTASSIUM (BEAKER) (test 4.2 meq/L 3.5-5.1 dgla=868) CHLORIDE (BEAKER) (test 104 meq/L 98-107 guxe=806) CO2 (BEAKER) (test 21 meq/L 22-29 vwhk=552) BLOOD UREA NITROGEN 16 mg/dL 7-21 (BEAKER) (test nehp=625) CREATININE (BEAKER) (test 0.82 mg/dL 0.57-1.25 tqqs=675) GLUCOSE RANDOM (BEAKER) 99 mg/dL 70-105 (test dcjo=415) CALCIUM (BEAKER) (test 8.3 mg/dL 8.4-10.2 igbg=127) EGFR (BEAKER) (test 68 mL/min/1.73 sq m ESTIMATED GFR IS NOT eanr=0363) ACCURATE CREATININE CLEARANCE IN PREDICTING GLOMERULAR FILTRATION RATE. ESTIMATED GFR IS NOT APPLICABLE FOR DIALYSIS PATIENTS. CBC (HEMOGRAM ONLY)2017-10-06 04:31:00 Test Item Value Reference Range Comments WHITE BLOOD CELL COUNT (BEAKER) (test rzcq=199) 7.7 K/ L 3.5-10.5 RED BLOOD CELL COUNT (BEAKER) (test vlrp=599) 3.84 M/ L 3.93-5.22 HEMOGLOBIN (BEAKER) (test ozmk=578) 11.9 GM/DL 11.2-15.7 HEMATOCRIT (BEAKER) (test fygu=562) 37.3 % 34.1-44.9 MEAN CORPUSCULAR VOLUME (BEAKER) (test vour=547) 97.1 fL 79.4-94.8 MEAN CORPUSCULAR HEMOGLOBIN (BEAKER) (test 31.0 pg 25.6-32.2 huyo=331) MEAN CORPUSCULAR HEMOGLOBIN CONC (BEAKER) (test 31.9 GM/DL 32.2-35.5 vfdg=892) RED CELL DISTRIBUTION WIDTH (BEAKER) (test 14.5 % 11.7-14.4 xpyh=840) PLATELET COUNT (BEAKER) (test khpf=042) 245 K/CU MM 150-450 MEAN PLATELET VOLUME (BEAKER) (test afrj=755) 9.2 fL 9.4-12.3 NUCLEATED RED BLOOD CELLS (BEAKER) (test 0 /100 WBC 0-0 eggp=872) POCT-GLUCOSE [id number] 08:33:00 Test Item Value Reference Range Comments POC-GLUCOSE METER (BEAKER) 125 mg/dL 70-110 TESTED AT [facility] [address] (test qeba=1758) [facility] [address] HEMOGLOBIN [id number] 16:54:00 Test Item Value Reference Range Comments HEMOGLOBIN A1C (BEAKER) (test itni=686) 5.9 % 4.3-6.1 BASIC METABOLIC [id number] 12:35:00 Test Item Value Reference Range Comments SODIUM (BEAKER) (test 137 meq/L 136-145 hmor=497) POTASSIUM (BEAKER) (test 4.2 meq/L 3.5-5.1 lydp=253) CHLORIDE (BEAKER) (test 105 meq/L 98-107 vjsn=797) CO2 (BEAKER) (test 22 meq/L 22-29 plxc=177) BLOOD UREA NITROGEN 15 mg/dL 7-21 (BEAKER) (test ndxs=272) CREATININE (BEAKER) (test 0.84 mg/dL 0.57-1.25 vngo=615) GLUCOSE RANDOM (BEAKER) 92 mg/dL 70-105 (test bssr=051) CALCIUM (BEAKER) (test 9.8 mg/dL 8.4-10.2 xeht=901) EGFR (BEAKER) (test 66 mL/min/1.73 sq m ESTIMATED GFR IS NOT ndab=1761) ACCURATE CREATININE CLEARANCE IN PREDICTING GLOMERULAR FILTRATION RATE. ESTIMATED GFR IS NOT APPLICABLE FOR DIALYSIS PATIENTS. PROTHROMBIN TIME/[id number] 12:34:00 Test Item Value Reference Range Comments PROTIME (BEAKER) (test wqzf=171) 14.3 seconds 11.7-14.7 INR (BEAKER) (test fbjr=264) 1.1 <=5.9 RECOMMENDED COUMADIN/WARFARIN INR THERAPY RANGESSTANDARD DOSE: 2.0 - 3.0 Includes: PROPHYLAXIS forvenous thrombosis, systemic embolization; TREATMENT for venous thrombosis and/or pulmonary embolus.HIGH RISK: Target INR is 2.5-3.5 for patients with mechanical heart valves.CBC W/PLT COUNT & AUTO [id number] 12:30:00 Test Item Value Reference Range Comments WHITE BLOOD CELL COUNT (BEAKER) (test nbzw=710) 8.4 K/ L 3.5-10.5 RED BLOOD CELL COUNT (BEAKER) (test svul=873) 4.48 M/ L 3.93-5.22 HEMOGLOBIN (BEAKER) (test zolx=645) 14.3 GM/DL 11.2-15.7 HEMATOCRIT (BEAKER) (test diya=868) 42.9 % 34.1-44.9 MEAN CORPUSCULAR VOLUME (BEAKER) (test usdw=907) 95.8 fL 79.4-94.8 MEAN CORPUSCULAR HEMOGLOBIN (BEAKER) (test 31.9 pg 25.6-32.2 qrsi=741) MEAN CORPUSCULAR HEMOGLOBIN CONC (BEAKER) (test 33.3 GM/DL 32.2-35.5 fkjr=357) RED CELL DISTRIBUTION WIDTH (BEAKER) (test 14.0 % 11.7-14.4 rrfo=670) PLATELET COUNT (BEAKER) (test oyyj=001) 290 K/CU MM 150-450 MEAN PLATELET VOLUME (BEAKER) (test uffz=795) 9.0 fL 9.4-12.3 NUCLEATED RED BLOOD CELLS (BEAKER) (test 0 /100 WBC 0-0 wqtg=349) NEUTROPHILS RELATIVE PERCENT (BEAKER) (test 68 % wcxm=965) LYMPHOCYTES RELATIVE PERCENT (BEAKER) (test 18 % eyod=690) MONOCYTES RELATIVE PERCENT (BEAKER) (test 11 % vimt=298) EOSINOPHILS RELATIVE PERCENT (BEAKER) (test 1 % lnio=944) BASOPHILS RELATIVE PERCENT (BEAKER) (test 1 % lczi=208) NEUTROPHILS ABSOLUTE COUNT (BEAKER) (test 5.75 K/ L 1.56-6.13 imxk=716) LYMPHOCYTES ABSOLUTE COUNT (BEAKER) (test 1.49 K/ L 1.18-3.74 xsth=587) MONOCYTES ABSOLUTE COUNT (BEAKER) (test 0.90 K/ L 0.24-0.36 aufc=435) EOSINOPHILS ABSOLUTE COUNT (BEAKER) (test 0.11 K/ L 0.04-0.36 hfcu=124) BASOPHILS ABSOLUTE COUNT (BEAKER) (test 0.09 K/ L 0.01-0.08 jsnl=725) IMMATURE GRANULOCYTES-RELATIVE PERCENT (BEAKER) 1 % 0-1 (test lite=8190) RAD, CHEST, 2 [id number] 11:54:00Reason for Exam:->Pre-OpFINAL REPORT Chest two views [...] Webber Verified Date/Time: 09/26/2017 11:54:23 Reading Location: [facility] Radiology Reading Room
[2018-01-07 10:45] LABS: Absolute Lymphocytes (CBC) 1.1 K/uL (0.7-4.9); Absolute Monocytes 1.8 K/uL (0.1-1.3); Absolute Neutrophil 7.2 K/uL (1.8-8.0); Basophils % 0.2 % (0-1.3); Eosinophils % 0.4 % (0-4.4); Lymphocytes % 11.2 % (15.3-44.8); MCH 32.6 pg (27.0-35.0); MCV 95.3 fL (80-100); MPV 7.6 fL (7.6-11.3); Monocytes % 17.8 % (3.3-12.3); RBC Red Blood Cell Count 5.24 M/uL (3.86-4.86)
[2018-01-07] MEDS ORDERED: NA CHLORIDE 0.9% 1,000 ML ONE (10:46)
[2018-01-07] MEDS ORDERED: ONDANSETRON 4 MG/2 ML VIAL ONE (10:46)
[2018-01-07 10:51] LABS: Protime INR 1.26
[2018-01-07 11:11] LABS: Albumin 3.9 g/dL (3.4-5.0); Bilirubin Direct 0.2 mg/dL (0-0.2); Bilirubin Total 0.6 mg/dL (0.2-1.0); CKMB Creatine Kinase MB 1.6 ng/mL (0.3-3.6); Potassium 4.4 mmol/L (3.5-5.1); Protein, Total 8.9 g/dL (6.4-8.2)
[2018-01-07 11:33] LABS: Blood Morphology Comment NOT SEEN (NOT SEEN); Platelet Estimate ADEQ; Urine White Blood Cell Casts OK
--- NOTE | 2018-01-07 11:36 | EDPHYS ---
Physician Documentation [facility] Name: Lizbeth Plata Age: 77 yrs Sex: Female : 1940 Arrival Date: 01/07/2018 Time: 09:58 Bed 5 Private MD: ED Physician Umair Hall HPI: 01/07 10:29 This 77 yrs old Female presents to ER via EMS with complaints of tiffanie Nausea/Vomiting/Diarrhea. 10:29 The patient presents to the emergency department with nausea, vomiting, diarrhea, that tiffanie is continuous. Onset: The symptoms/episode began/occurred 2 day(s) ago. Possible causes: unknown. The symptoms are aggravated by nothing. Severity of symptoms: At their worst the symptoms were mild in the emergency department the symptoms are unchanged. Historical: - Allergies: 10:08 Betadine; iw 10:08 Iodine; iw 10:08 Sulfa (Sulfonamide Antibiotics); iw - Home Meds: 10:08 Lamictal 150 mg Oral tab 1 tab once daily [Active]; Neurontin 300 mg Oral cap 1 cap iw twice a day [Active]; trazodone 150 mg Oral tab 0.5 tab nightly [Active]; Januvia 50 mg oral tab once daily [Active]; Wellbutrin 150 mg Oral twice a day [Active]; Plavix 75 mg Oral tab 1 tab once daily [Active]; propranolol 60 mg Oral tab 1 tab 2 times per day [Active]; Niaspan Extended-Release 1,000 mg Oral Tb24 1 tab once daily [Active]; Restasis 0.05 % ophthalmic dpet 1 drop 2 times per day [Active]; Singulair 10 mg Oral tab 1 tab once daily [Active]; Anoro Ellipta 62.5-25 mcg/actuation inhalation dsdv 1 puff once daily [Active]; Vitamin B-12 1,000 mcg/mL injection soln biweekly [Active]; calcium vitamin D daily [Active]; PreserVision AREDS 7,160-113-100 [id number] oral tab twice a day [Active]; turmeric root extract 450 mg oral cap nightly [Active]; aspirin 81 mg Oral TbEC 1 tab once daily [Active]; Zantac 150 mg Oral tab 1 tab 2 times per day [Active]; - PMHx: 10:08 Hypothyroidism; Parkinsons; iw - PSHx: 10:08 Bilateral Breast Mastectomy; Cholecystectomy; Hysterectomy; iw - Immunization history:: Adult Immunizations unknown. - Ebola Screening: : Patient negative for fever greater than or equal to 101.5 degrees Fahrenheit, and additional compatible Ebola Virus Disease symptoms Patient denies exposure to infectious person Patient denies travel to an Ebola-affected area in the 21 days before illness onset No symptoms or risks identified at this time. - Family history:: not pertinent. - Social history:: Smoking status: Patient/guardian denies using tobacco. ROS: 10:29 Constitutional: Negative for fever, chills, and weight loss, Eyes: Negative for injury, tiffanie pain, redness, and discharge, ENT: Negative for injury, pain, and discharge, Neck: Negative for injury, pain, and swelling, Cardiovascular: Negative for chest pain, palpitations, and edema, Respiratory: Negative for shortness of breath, cough, wheezing, and pleuritic chest pain, Back: Negative for injury and pain, : Negative for injury, bleeding, discharge, and swelling, MS/Extremity: Negative for injury and deformity, Skin: Negative for injury, rash, and discoloration, Neuro: Negative for headache, weakness, numbness, tingling, and seizure, Psych: Negative for depression, anxiety, suicide ideation, homicidal ideation, and hallucinations, Allergy/Immunology: Negative for hives, rash, and allergies, Endocrine: Negative for neck swelling, polydipsia, polyuria, polyphagia, and marked weight changes, Hematologic/Lymphatic: Negative for swollen nodes, abnormal bleeding, and unusual bruising. 10:29 Abdomen/GI: Positive for abdominal pain, nausea and vomiting, diarrhea, of the right upper quadrant, left upper quadrant, right lower quadrant and left lower quadrant. Exam: 10:29 Constitutional: This is a well developed, well nourished patient who is awake, alert, tiffanie and in no acute distress. Head/Face: Normocephalic, atraumatic. Eyes: Pupils equal round and reactive to light, extra-ocular motions intact. Lids and lashes normal. Conjunctiva and sclera are non-icteric and not injected. Cornea within normal limits. Periorbital areas with no swelling, redness, or edema. ENT: Nares patent. No nasal discharge, no septal abnormalities noted. Tympanic membranes are normal and external auditory canals are clear. Oropharynx with no redness, swelling, or masses, exudates, or evidence of obstruction, uvula midline. Mucous membranes moist. Neck: Trachea midline, no thyromegaly or masses palpated, and no cervical lymphadenopathy. Supple, full range of motion without nuchal rigidity, or vertebral point tenderness. No Meningismus. Chest/axilla: Normal chest wall appearance and motion. Nontender with no deformity. No lesions are appreciated. Cardiovascular: Regular rate and rhythm with a normal S1 and S2. No gallops, murmurs, or rubs. Normal PMI, no JVD. No pulse deficits. Respiratory: Lungs have equal breath sounds bilaterally, clear to auscultation and percussion. No rales, rhonchi or wheezes noted. No increased work of breathing, no retractions or nasal flaring. Back: No spinal tenderness. No costovertebral tenderness. Full range of motion. Female : Normal external genitalia. Skin: Warm, dry with normal turgor. Normal color with no rashes, no lesions, and no evidence of cellulitis. MS/ Extremity: Pulses equal, no cyanosis. Neurovascular intact. Full, normal range of motion. Neuro: Awake and alert, GCS 15, oriented to person, place, time, and situation. Cranial nerves II-XII grossly intact. Motor strength 5/5 in all extremities. Sensory grossly intact. Cerebellar exam normal. Normal gait. Psych: Awake, alert, with orientation to person, place and time. Behavior, mood, and affect are within normal limits. 10:29 Abdomen/GI: Inspection: abdomen appears normal, Bowel sounds: normal, Palpation: mild abdominal tenderness, in all quadrants, Liver: no appreciated palpable abnormalities, Hernia: not appreciated. Vital Signs: 10:08 BP 145 / 65; Pulse 91; Resp 18; Temp 97.8; Pulse Ox 92% on R/A; Pain 0/10; iw 10:45 BP 124 / 60; Pulse 90; Resp 23; Pulse Ox 88% on R/A; jl7 10:50 Pulse Ox 94% on 1 lpm NC; jl7 11:50 BP 133 / 61; Pulse 87; Resp 22; Pulse Ox 91% on 1 lpm NC; jl7 12:30 BP 137 / 63; Pulse 97; Resp 20; Pulse Ox 95% on R/Sergio; jl7 MDM: 09:59 Patient medically screened. [facility] 10:29 Data reviewed: vital signs, nurses notes, lab test result(s), EKG, radiologic studies, [facility] CT scan, plain films. 01/07 10:29 Order name: Basic Metabolic Panel; Complete Time: 11:30 [facility] 01/07 10:29 Order name: CBC with Diff; Complete Time: 12:27 [facility] 01/07 10:29 Order name: Ckmb; Complete Time: 11:30 [facility] 01/07 10:29 Order name: CPK; Complete Time: 11:30 [facility] 01/07 10:29 Order name: LFT's; Complete Time: 11:30 [facility] 01/07 10:29 Order name: Magnesium; Complete Time: 11:30 [facility] 01/07 10:29 Order name: NT PRO-BNP; Complete Time: 11:30 [facility] 01/07 10:29 Order name: PT-INR; Complete Time: 11:30 [facility] 01/07 10:29 Order name: Ptt, Activated; Complete Time: 11:30 [facility] 01/07 10:29 Order name: Troponin (emerg Dept Use Only); Complete Time: 11:30 [facility] 01/07 10:29 Order name: Lipase; Complete Time: 11:30 [facility] 01/07 10:29 Order name: CDIFF [facility] 01/07 10:29 Order name: Stool Culture [facility] 01/07 10:29 Order name: Fecal Leukocyte Stain [facility] 01/07 10:29 Order name: XRAY Chest (1 view) [facility] 01/07 10:29 Order name: EKG; Complete Time: 10:29 [facility] 01/07 10:29 Order name: Cardiac monitoring; Complete Time: 11:09 [facility] 01/07 10:29 Order name: EKG - Nurse/Tech; Complete Time: 10:52 [facility] 01/07 10:29 Order name: IV Saline Lock; Complete Time: 10:52 [facility] 01/07 10:29 Order name: Labs collected and sent; Complete Time: 10:52 [facility] 01/07 10:29 Order name: O2 Per Protocol; Complete Time: 10:52 [facility] 01/07 10:29 Order name: O2 Sat Monitoring; Complete Time: 10:52 [facility] 01/07 10:29 Order name: CT Abd/Pelvis - Without Cont [facility] 01/07 10:46 Order name: CBC Smear Scan; Complete Time: 12:27 EDMS 01/07 11:16 Order name: Urine Culture jl7 01/07 11:20 Order name: Urine Dipstick--Ancillary (enter results); Complete Time: 12:27 bd 01/07 12:34 Order name: CT EDMS 01/07 10:29 Order name: Urine Dipstick-Ancillary (obtain specimen); Complete Time: 11:11 [facility] Administered Medications: 10:39 Drug: NS 0.9% 1000 ml Route: IV; Rate: 1 bolus; Site: left hand; jl7 11:54 Follow up: IV Status: Completed infusion jl7 10:40 Drug: Zofran 4 mg Route: IVP; Site: left hand; jl7 11:10 Follow up: Response: No adverse reaction; Nausea is decreased jl7 11:45 Drug: Rocephin - (cefTRIAXone) 1 grams {Note: Administered over 3 min.} Route: IVPB; jl7 Infused Over: 30 mins; Site: left hand; 11:48 Follow up: IV Status: Completed infusion jl7 Disposition: 01/07/18 11:35 Hospitalization ordered by Cindy Rose for Inpatient Admission. Preliminary diagnosis are Vomiting, Diarrhea, unspecified, Volume depletion, Cystitis. - Bed requested for Telemetry/MedSurg (Inpatient). - Status is Inpatient Admission. jl7 - Condition is Fair. - Problem is new. - Symptoms have improved. UTI on Admission? Yes Signatures: Dispatcher [employer] Dione Garcia RN RN dw Anderson, Corey, MD MD cha Williams, Irene, RN RN iw Leal, Jahala, RN RN jl7 Corrections: (The following items were deleted from the chart) 12:23 11:35 Hospitalization Ordered by Cindy Rose MD for Inpatient Admission. mary Preliminary diagnosis is Vomiting; Diarrhea, unspecified; Volume depletion; Cystitis. Bed requested for Telemetry/MedSurg (Inpatient). Status is Inpatient Admission. Condition is Fair. Problem is new. Symptoms have improved. UTI on Admission? Yes. tiffanie 12:49 12:23 01/07/2018 11:35 Hospitalization Ordered by Cindy Rose MD for Inpatient jl7 Admission. Preliminary diagnosis is Vomiting; Diarrhea, unspecified; Volume depletion; Cystitis. Bed requested for Telemetry/MedSurg (Inpatient). Status is Inpatient Admission. Condition is Fair. Problem is new. Symptoms have improved. UTI on Admission? Yes. dw
--- NOTE | 2018-01-07 11:36 | ER ---
Nurse's Notes [facility] Name: Lizbeth Plata Age: 77 yrs Sex: Female : 1940 Arrival Date: 01/07/2018 Time: 09:58 Bed 5 Private MD: Diagnosis: Vomiting;Diarrhea, unspecified;Volume depletion;Cystitis Presentation: 01/07 09:59 Presenting complaint: EMS states: pt had diarrhea on Monday, started vomiting Monday iw night, vomited all last night and this morning, denies abd pain, diarrhea has resolved. Transition of care: patient was not received from another setting of care. Onset of symptoms was January 05, 2018. Risk Assessment: Do you want to hurt yourself or someone else? Patient reports no desire to harm self or others. Initial Sepsis Screen: Does the patient meet any 2 criteria? No. Patient's initial sepsis screen is negative. Does the patient have a suspected source of infection? No. Patient's initial sepsis screen is negative. Care prior to arrival: Medication(s) given: zofran 4 mg, IV initiated. 22 GA, in the left hand, Glucose check: 182 Oxygen administered. via nasal cannula. 09:59 Method Of Arrival: EMS: [facility] iw 09:59 Acuity: SYLVIA 3 iw Historical: - Allergies: 10:08 Betadine; iw 10:08 Iodine; iw 10:08 Sulfa (Sulfonamide Antibiotics); iw - Home Meds: 10:08 Lamictal 150 mg Oral tab 1 tab once daily [Active]; Neurontin 300 mg Oral cap 1 cap iw twice a day [Active]; trazodone 150 mg Oral tab 0.5 tab nightly [Active]; Januvia 50 mg oral tab once daily [Active]; Wellbutrin 150 mg Oral twice a day [Active]; Plavix 75 mg Oral tab 1 tab once daily [Active]; propranolol 60 mg Oral tab 1 tab 2 times per day [Active]; Niaspan Extended-Release 1,000 mg Oral Tb24 1 tab once daily [Active]; Restasis 0.05 % ophthalmic dpet 1 drop 2 times per day [Active]; Singulair 10 mg Oral tab 1 tab once daily [Active]; Anoro Ellipta 62.5-25 mcg/actuation inhalation dsdv 1 puff once daily [Active]; Vitamin B-12 1,000 mcg/mL injection soln biweekly [Active]; calcium vitamin D daily [Active]; PreserVision AREDS 7,160-113-100 [id number] oral tab twice a day [Active]; turmeric root extract 450 mg oral cap nightly [Active]; aspirin 81 mg Oral TbEC 1 tab once daily [Active]; Zantac 150 mg Oral tab 1 tab 2 times per day [Active]; - PMHx: 10:08 Hypothyroidism; Parkinsons; iw - PSHx: 10:08 Bilateral Breast Mastectomy; Cholecystectomy; Hysterectomy; iw - Immunization history:: Adult Immunizations unknown. - Ebola Screening: : Patient negative for fever greater than or equal to 101.5 degrees Fahrenheit, and additional compatible Ebola Virus Disease symptoms Patient denies exposure to infectious person Patient denies travel to an Ebola-affected area in the 21 days before illness onset No symptoms or risks identified at this time. - Family history:: not pertinent. - Social history:: Smoking status: Patient/guardian denies using tobacco. Screenin:18 Abuse screen: Denies threats or abuse. Denies injuries from another. Nutritional jl7 screening: No deficits noted. Tuberculosis screening: No symptoms or risk factors identified. 12:30 Fall Risk IV access (20 points). Total Conroy Fall Scale indicates No Risk (0-24 pts). jl7 Assessment: 10:18 General: Appears in no apparent distress. uncomfortable, Behavior is calm, cooperative, jl7 appropriate for age. Pain: Denies pain. Neuro: Level of Consciousness is awake, alert, obeys commands, Oriented to person, place, time, situation. Cardiovascular: Heart tones present Patient's skin is warm and dry. Respiratory: Airway is patent Respiratory effort is even, unlabored, Respiratory pattern is regular, symmetrical, Breath sounds are clear bilaterally. GI: Abdomen is round non-distended, Last BM was January 05, 2018. Last meal was January 06, 2018. Bowel sounds present X 4 quads. Abd is soft X 4 quads Abd is non tender in right upper quadrant, left upper quadrant and left lower quadrant Abdomen is tender to palpation in right lower quadrant Reports vomiting, Denies nausea, reports "I'm not nauseous, I just vomit out of nowhere.". : No signs and/or symptoms were reported regarding the genitourinary system. Denies burning with urination. EENT: No signs and/or symptoms were reported regarding the EENT system. Derm: Skin is pink, warm \\T\\ dry. Musculoskeletal: No signs and/or symptoms reported regarding the musculoskeletal system. 10:45 Reassessment: Pt finished drinking oral contrast, CT notified. jl7 11:50 Reassessment: Patient and/or family updated on plan of care and expected duration. Pain jl7 level reassessed. Patient is alert, oriented x 3, equal unlabored respirations, skin warm/dry/pink. Patient states feeling better. Vital Signs: 10:08 BP 145 / 65; Pulse 91; Resp 18; Temp 97.8; Pulse Ox 92% on R/A; Pain 0/10; iw 10:45 BP 124 / 60; Pulse 90; Resp 23; Pulse Ox 88% on R/A; jl7 10:50 Pulse Ox 94% on 1 lpm NC; jl7 11:50 BP 133 / 61; Pulse 87; Resp 22; Pulse Ox 91% on 1 lpm NC; jl7 12:30 BP 137 / 63; Pulse 97; Resp 20; Pulse Ox 95% on R/A; jl7 ED Course: 09:58 Patient arrived in ED. iw 09:59 Umair Hall MD is Attending Physician. tiffanie 10:00 Triage completed. iw 10:08 Arm band placed on. iw 10:10 Krishan Hankins RN is Primary Nurse. jl7 10:15 Maintain EMS IV. Dressing intact. Site clean \\T\\ dry. Gauge \\T\\ site: 20 left hand. Flushed.jl 7 10:18 Patient has correct armband on for positive identification. Placed in gown. Bed in low jl7 position. Call light in reach. Side rails up X 1. monitor worker on. Pulse ox on. NIBP on. Warm blanket given. 10:30 Initial lab(s) drawn, by ED staff, sent to lab. Inserted saline lock: 20 gauge in right jl7 antecubital area, using aseptic technique. ,using aseptic technique. Inserted by LUIS Barragan Blood collected. 10:45 Urine collected: straight cath specimen, cloudy, dewayne colored. Straight cath inserted, jl7 using sterile technique, 16 Fr. Specimen obtained. Returned cloudy urine. 11:11 X-ray completed. Portable x-ray completed in exam room. Patient tolerated procedure la2 well. 11:12 XRAY Chest (1 view) In Process Unspecified. EDVA 11:34 Cindy Rose MD is Hospitalizing Provider. [facility] 12:05 CT completed. Patient moved to CT via stretcher. Patient moved back from CT. [facility] 12:48 No provider procedures requiring assistance completed. Patient admitted, IV remains in jl7 place. intact, No redness/swelling at site. Administered Medications: 10:39 Drug: NS 0.9% 1000 ml Route: IV; Rate: 1 bolus; Site: left hand; 7 11:54 Follow up: IV Status: Completed infusion [facility] 10:40 Drug: Zofran 4 mg Route: IVP; Site: left hand; [facility] 11:10 Follow up: Response: No adverse reaction; Nausea is decreased [facility] 11:45 Drug: Rocephin - (cefTRIAXone) 1 grams {Note: Administered over 3 min.} Route: IVPB; jl7 Infused Over: 30 mins; Site: left hand; 11:48 Follow up: IV Status: Completed infusion [facility] Outcome: 11:35 Decision to Hospitalize by Provider. [facility] 12:48 Admitted to Tele accompanied by tech, family with patient, via wheelchair, room 206, 7 with chart, Report called to LUIS Ibarra 12:48 Condition: stable 12:48 Discharge instructions given to patient, family, Instructed on the need for admit, Demonstrated understanding of instructions. 12:49 Patient left the ED. [facility] Signatures: Dispatcher [employer] EDMS Umair Hall MD MD cha Williams, Irene, RN RN iw Leal, Jahala, RN RN [facility] Ayesha Sharma [facility] Kayli Gonzalez [facility]
[2018-01-07 11:39] LABS: Urine Blood TRACE (NEG); Urine Glucose NEGATIVE (NEG); Urine Protein 1+ (NEG); Urine Specific Gravity 1.025 (1.005-1.030); Urine pH 5.5 (5.0-7.0)
[2018-01-07] MEDS ORDERED: CEFTRIAXONE/SWI 1gm 1 GM/10 ML SYR ONE (11:50)
--- NOTE | 2018-01-07 12:33 | RAD REPORT ---
EXAM DESCRIPTION: CT - Abdomen Pelvis Wo Contrast - 01/07/2018 12:07 pm CLINICAL HISTORY: Abdominal pain with vomiting and diarrhea COMPARISON: January 2017 TECHNIQUE: Computed axial tomography of the abdomen and pelvis was obtained. IV was not requested. O ral contrast was given. . All CT scans are performed using dose optimization technique as appropriate and may include automated exposure control or mA/KV adjustment according to patient size. FINDINGS: The evaluation of solid organs and vessels is limited secondary to the lack of contrast a dministration. The liver, spleen, pancreas, adrenals and kidneys appear grossly normal. The appendix is normal. There is no evidence of diverticulitis. Moderate dilatation of jejunum is present. Most of the ileum is decompressed. A small amount of ascites is present. A 27 millimeter soft tissue structure is present within the upper pelvis to the right of midline. It either contains calcification or contrast. Swirling of mesenteric vessels is seen superior to this. Narrowing of the gastric antrum IMPRESSION: Mechanical small bowel obstruction A 27 millimeter soft tissue structure within the upper pelvis to the right of midline may represent a mesenteric mass such as carcinoid. Less likely this represents small bowel containing a few specks o f contrast. Swirling of the mesenteric vessels within the lower abdomen/upper pelvis to the right of midline is a nonspecific finding. It can be normal. Also, it can be associated with a volvulus and internal herni a Narrowing of the gastric antrum probably secondary to incomplete distention/spasm. However, a small m ass has a similar appearance.
--- NOTE | 2018-01-07 12:50 | RAD REPORT ---
EXAM DESCRIPTION: [place] Single View01/07/2018 11:15 am CLINICAL HISTORY: abd pain COMPARISON: May 2017 FINDINGS: The lungs appear clear of acute infiltrate. The heart is normal size IMPRESSION: No acute abnormalities displayed
--- NOTE | 2018-01-07 13:17 | EKG ---
Test Date: 2018-01-07 Test Time: 10:47:27 Loop Tender: NITA MEASUREMENT RESULTS: Intervals: Rate: 91 TN: 150 QRSD: 78 QT: 366 QTc: 450 [place]: P: 75 TN: 150 QRS: 54 T: 45 INTERPRETIVE STATEMENTS: Normal sinus rhythm Normal ECG Compared to ECG 09/11/2017 15:36:20 No significant changes Electronically Signed On 01-07-18 13:16:23 CDT by Rei Pickard
[2018-01-07] MEDS ORDERED: MORPHINE 4 MG/ML SYR IV PRN (14:40)
[2018-01-07] MEDS ORDERED: ACETAMINOPHEN 500 MG TAB PO PRN (14:40)
[2018-01-07] MEDS: NA CHLORIDE 0.9% 1,000 ML IV SCH ×2 (15:42→23:32)
[2018-01-07] MEDS: ENOXAPARIN 40 MG/0.4 ML SQ SCH (16:28)
[2018-01-07] MEDS ORDERED: INSULIN -REGULAR HUMAN 50 UNIT/0.5 ML ML SQ SCH ×2 (16:30→18:00)
[2018-01-07] MEDS ORDERED: D50W 25 GM/50 ML SYRINGE IV PRN (17:24)
[2018-01-07] MEDS ORDERED: GLUCAGON 1 MG/VIAL IM PRN (17:24)
--- NOTE | 2018-01-07 17:36 | P.CNS ---
Date of Consult: 01/07/18 PC: This 77-year-old female presented emergency room with abdominal pain for diagnosis and treatment. HPC: Patient been home, started experiencing severe abdominal pain with nausea. PMH: Parkinson's, hypothyroidism PSHx: Previous cholecystectomy, hysterectomy SOC: Allergic to iodine (see nurse's note) SYS REVIEW: O/E Awake alert stable at the moment has been getting up and moving around asking for food HEENT: Not jaundiced Chest: Chest movement equal bilaterally ABD: Soft nontender no masses are palpable no guarding or rebound LOCO: Intact DATA: CT scan shows some dilated loops of bowel, no hard evidence of acute obstruction IMPRESSION: Abdominal pain, possible partial SBO PLAN: I will give her some clear liquids tonight. She will be NPO at midnight as there is a questionable mass in the abdomen may require biopsy. Will reassess her in the morning, but she does not require surgical intervention at the moment.
[2018-01-07] MEDS ORDERED: ONDANSETRON 4 MG/2 ML VIAL IV PRN (18:58)
[2018-01-07] MEDS: ONDANSETRON 4 MG/2 ML VIAL IV PRN ×2 (19:01→23:27)
--- NOTE | 2018-01-07 20:10 | HP ---
Date of Admission: 01/07/2018 Reason For Admission: Nausea, vomiting, diarrhea, abdominal distention. History Of Present Illness: This is a 77-year-old female with past medical history significant for m [facility] medical problems including breast cancer status post bilateral mastectomy 20 years ago, hyper tension, diabetes, hypothyroidism, Parkinson disease, presented with history of 2 days of progressive nausea, vomiting, diarrhea with abdominal distention. In the ER, she was evaluated. A CAT scan of the abdomen done and that showed 27 mm soft tissue structure within the upper pelvis to the right of midline, swelling of the vessels within the lower abdomen, upper pelvis to the right of the midline i s nonspecific, which can be associated with volvulus or internal hernia. The patient's labs in the E R showed hemoglobin of 17.1, otherwise normal CBC. Her BUN was 21, creatinine was 1.2. BNP was elev ated at 998. LFTs were all within normal. Currently, the patient is lying in bed. She looks comfor table. She received some nausea medicines in the emergency room and no further bowel movements since arrival. The patient was given IV antibiotics with ceftriaxone and admitted for further eval. Review of Systems: Otherwise, as below. Past Medical History: Significant for parkinsonism, hypothyroidism, breast cancer status post bilate ral mastectomy followed by chemo, hypertension, arthritis. Past Surgical History: Known for bilateral mastectomy, cholecystectomy, hysterectomy. Allergies: TO BETADINE, IODINE, AND SULFA. Social History: She is a . 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 She does not dr ink, smoke, or use any drugs. Family History: Significant for father and mother both of [place]. Medications: Medication list according to the ER significant for Lamictal, Neurontin, trazodone, Jayro uvia, Wellbutrin, Plavix, propranolol, Niaspan, Restasis, Singulair, vitamin B12 injection, and multi ple other supplements, also Zantac and aspirin. Review of Systems: Denies any fever, chills, night sweats, dizziness, lightheadedness, headache, blurred vision. There is no change in weight or appetite. She does not have any cough, sputum, shortness of breath. No ch est pain, palpitations, PND, orthopnea, dyspnea on exertion, lower extremity edema. She does have na usea and vomiting, which resolved after treated in the emergency room. She had diarrhea with multipl e bowel movements. No black stool or blood in the stool. No dysuria, frequency, urgency, hematuria. There is no history of depression, anxiety, seizure, or stroke. Physical Examination: Vital Signs: Currently, blood pressure is 137/63, respiratory rate 20, pulse 97, saturating 95% on r oom air. General: The patient is alert and oriented x3. Does not look in any distress. She is sitting in th e bed. HEENT: Atraumatic, normocephalic. PERRLA. Oral mucosa is moist. Neck: Supple. No JVP. No carotid bruits. Chest: Clear to auscultation. Good air entry. Heart: Regular rate and rhythm. S1, S2 normal. No gallop. Abdomen: Distended, tympanic. There is mild diffuse tenderness. There is no guarding or rebound. She does have low bowel sounds. Extremities: No clubbing, or cyanosis, or edema. No calf tenderness. Neurologic: Grossly intact. Muscle strength is 5/5 in all 4 extremities. Normal sensation. Of course, the patient on exam shows bilateral mastectomy. Laboratory Data: Labs in the emergency room, CBC within normal with hemoglobin of 17.1, monocytosis of 17.8. BMP within normal. LFTs within normal. BNP of 998. Assessment And Plan: This is a 77-year-old female with history of multiple medical problems, admitte d with nausea, vomiting, diarrhea, found to have questionable abdominal mass on CAT scan. 1.Mechanical obstruction secondary to abdominal mass. We will proceed with CT-guided biopsy of the mass in the morning. In the meantime, we will keep the patient n.p.o. We will consult General Surge ry. If the patient's nausea and vomiting get worse and distention, I may consider placing NG tube. 2.Diarrhea. Stool study ordered in the emergency room and they all still pending. I will not start antibiotics. I do not have any evidence of gastroenteritis at this point. No fever. No leukocytos is. The patient already received ceftriaxone in the emergency room. 3.Diabetes mellitus. We will hold her Januvia at this point as the patient n.p.o., insulin slide sc paula and Accu-Chek every 6 hours. 4.Hypertension urgency. Resume beta-shannon for now as the patient n.p.o. 5.Neuropathy. We will hold her gabapentin as the patient is again n.p.o. 6.Deep vein thrombosis prophylaxis with Lovenox. 7.Treatment for nausea with Zofran and for pain with morphine. JENNY/JAVAD Voice ID: [id number]
[2018-01-07] MEDS: PROPRANOLOL HCL 40 MG TAB PO SCH ×2 (20:39→23:58)
[2018-01-07] MEDS: INSULIN -REGULAR HUMAN 50 UNIT/0.5 ML ML SQ SCH (20:40)
[2018-01-07] MEDS ORDERED: PROPRANOLOL HCL 60 MG SA CAP PO SCH (21:00)
[2018-01-07] MEDS ORDERED: TRAZODONE 50 MG TABLET PO ONE (23:40)
[2018-01-08] MEDS ORDERED: PROMETHAZINE 25 MG/ML VIAL IV ONE (00:13)
[2018-01-08 05:02] LABS: Absolute Lymphocytes (CBC) 0.9 K/uL (0.7-4.9); Absolute Monocytes 1.4 K/uL (0.1-1.3); Absolute Neutrophil 7.7 K/uL (1.8-8.0); Basophils % 0.2 % (0-1.3); Eosinophils % 0.1 % (0-4.4); Hematocrit 44.8 % (36.0-45.0); Lymphocytes % 9.4 % (15.3-44.8); MCH 32.9 pg (27.0-35.0); MCV 95.3 fL (80-100); MPV 7.6 fL (7.6-11.3); Monocytes % 14.2 % (3.3-12.3)
[2018-01-08 05:09] LABS: Potassium 3.6 mmol/L (3.5-5.1)
[2018-01-08] MEDS: ONDANSETRON 4 MG/2 ML VIAL IV PRN (06:00)
[2018-01-08] MEDS: THYROID 30 MG TAB PO SCH (06:00)
[2018-01-08] MEDS: INSULIN -REGULAR HUMAN 50 UNIT/0.5 ML ML SQ SCH ×4 (07:30→21:00)
--- NOTE | 2018-01-08 08:57 | P.PN ---
Subjective Date of Service: 01/08/18 Primary Care Provider: Unknown Chief Complaint: Abdominal pain Subjective: Other (Abdominal pain improved. Still no passage of gas. Some nausea and vomiting noted. Overall slight improvement) Physical Examination - Vital Signs Temperature: 97.5 F Blood Pressure: 142/66 Pulse: 97 Respirations: 18 Pulse Ox (%): 90 - Physical Exam General: Alert, In no apparent distress, Cooperative HEENT: Atraumatic Neck: Supple Respiratory: Clear to auscultation bilaterally, Normal air movement Cardiovascular: Normal pulses, Regular rate/rhythm Gastrointestinal: Hypoactive (Throughout), Soft and benign, Non-distended, No masses, No rebound, No guarding, Tenderness (Mild pressure to the lower pelvic region on the right side) Musculoskeletal: No erythema, No tenderness, No warmth Integumentary: No tenderness/swelling, No erythema, No warmth, No cyanosis Neurological: Normal speech, Normal strength at 5/5 x4 extr, Normal tone, Normal affect - Studies Laboratory Data (last 24 hrs) 01/07/18 10:30: Lipase 166 01/07/18 10:30: PT 14.9 H, INR 1.26, APTT 30.6 01/07/18 10:30: WBC 10.2, Hgb 17.1 H, Hct 50.0 H, Plt Count 361 01/07/18 10:30: Sodium 141, Potassium 4.4, BUN 21 H, Creatinine 1.20, Glucose 160 H, Magnesium 2.0, Total Bilirubin 0.6, AST 25, ALT 28, Alkaline Phosphatase 82 Medications List Reviewed: Yes Assessment & Plan - Problems (Diagnosis) (1) Small bowel obstruction Current Visit: Yes Status: Acute Plan: Patient with small-bowel obstruction. Patient on clear liquid, still with nausea. Pain to the abdomen improved. Will discuss case further with surgery. Radiology not able to perform CT-guided biopsy to evaluate mesenteric mass due to its location. If symptoms do not improve patient may require surgical intervention. (2) Abdominal mass Current Visit: Yes Status: Acute Plan: Mesenteric mass noted. Likely carcinoid. CT guided biopsy could not be done due to its location. Will discuss with surgery further. Qualifiers: Abdominal location: right lower quadrant Qualified Code(s): R19.03 - Right lower quadrant abdominal swelling, mass and lump (3) Diabetes mellitus Current Visit: Yes Status: Chronic Plan: Will continue to provide a sliding scale. Will monitor and adjust appropriately. Qualifiers: Diabetes mellitus type: type 2 Diabetes mellitus termite control representative insulin use: without termite control representative use Diabetes mellitus complication status: with other specified complication Qualified Code(s): E11.69 - Type 2 diabetes mellitus with other specified complication (4) Renal insufficiency Current Visit: Yes Status: Acute Plan: Will continue with IV fluids. Will monitor and adjust appropriately. (5) Diabetic neuropathy Current Visit: Yes Status: Chronic Plan: Will provide medication as needed Qualifiers: Diabetes mellitus type: type 2 Diabetes mellitus complication detail: diabetic polyneuropathy Qualified Code(s): E11.42 - Type 2 diabetes mellitus with diabetic polyneuropathy (6) UTI (urinary tract infection) Current Visit: Yes Status: Acute Plan: Gram negative rods noted on urine culture. Will start Rocephin. Await urine culture results. Qualifiers: Urinary tract infection type: site unspecified Hematuria presence: without hematuria Qualified Code(s): N39.0 - Urinary tract infection, site not specified (7) Diarrhea Current Visit: Yes Status: Acute Plan: Stool culture for C diff pending. Qualifiers: Diarrhea type: unspecified type Qualified Code(s): R19.7 - Diarrhea, unspecified (8) Hypertension Onset Date: 01/25/17 Current Visit: No Status: Chronic Plan: Will provide medication. Qualifiers: Hypertension type: essential hypertension (9) Hypothyroidism Onset Date: 01/25/17 Current Visit: No Status: Chronic Plan: Will provide medication. Qualifiers: Hypothyroidism type: unspecified (10) History of breast cancer Current Visit: No Status: Chronic Plan: Patient with history of breast cancer and bilateral mastectomy. (11) Parkinsons Onset Date: 01/25/17 Current Visit: No Status: Chronic Plan: Will need to continue with her medication.
[2018-01-08] MEDS: NA CHLORIDE 0.9% 1,000 ML IV SCH ×2 (09:37→17:19)
[2018-01-08] MEDS: CEFTRIAXONE/SWI 1gm 1 GM/10 ML SYR IV SCH (09:37)
[2018-01-08] MEDS: PROPRANOLOL HCL 60 MG SA CAP PO SCH ×2 (12:00→21:07)
[2018-01-08] MEDS: VANCOMYCIN ORAL SOLN 250 MG/5 ML OSYR PO SCH ×3 (13:45→23:28)
[2018-01-08] MEDS: ENOXAPARIN 40 MG/0.4 ML SQ SCH (17:19)
[2018-01-09] MEDS: NA CHLORIDE 0.9% 1,000 ML IV SCH (03:59)
[2018-01-09] MEDS: THYROID 30 MG TAB PO SCH (06:10)
[2018-01-09] MEDS: VANCOMYCIN ORAL SOLN 250 MG/5 ML OSYR PO SCH ×4 (06:11→23:41)
[2018-01-09] MEDS: INSULIN -REGULAR HUMAN 50 UNIT/0.5 ML ML SQ SCH ×4 (07:30→20:39)
--- NOTE | 2018-01-09 09:38 | RAD REPORT ---
EXAM DESCRIPTION: RAD - Abdomen 1 View (KUB) - 01/09/2018 8:42 am CLINICAL HISTORY: follow colitis Pain COMPARISON: ABDOMEN 1 VIEW KUB dated 07/26/2012; Abdomen Pelvis Wo Contrast dated 01/07/2018 FINDINGS: Prominent dilatation of the stomach and small bowel loops in the upper abdomen again noted , with a paucity of distal gas, compatible with moderate mechanical small-bowel obstruction. This juan ears overall stable since comparative CT study. Cholecystectomy clips. No pneumoperitoneum seen. IMPRESSION: Moderate mechanical small-bowel obstruction again noted, similar to comparative CT study .
[2018-01-09] MEDS: CEFTRIAXONE/SWI 1gm 1 GM/10 ML SYR IV SCH (10:21)
[2018-01-09] MEDS: PROPRANOLOL HCL 60 MG SA CAP PO SCH ×2 (10:22→20:22)
--- NOTE | 2018-01-09 11:51 | P.PN ---
Subjective Date of Service: 01/09/18 Primary Care Provider: Unknown Chief Complaint: Abdominal pain Subjective: Improving (Patient has had bowel movement. She is tolerating a diet. No significant pain, nausea vomiting.) Physical Examination - Vital Signs Temperature: 97.1 F Blood Pressure: 178/78 Pulse: 78 Respirations: 18 Pulse Ox (%): 92 - Physical Exam General: Alert, In no apparent distress, Cooperative HEENT: Atraumatic Neck: Supple Respiratory: Clear to auscultation bilaterally, Normal air movement Cardiovascular: Normal pulses, Regular rate/rhythm Gastrointestinal: Normal bowel sounds, Soft and benign, Non-distended, No tenderness, No masses, No rebound, No guarding Musculoskeletal: No erythema, No tenderness, No warmth Integumentary: No erythema, No warmth, No cyanosis Neurological: Normal speech, Normal strength at 5/5 x4 extr, Normal tone, Normal affect - Studies Microbiology Data (last 24 hrs): 01/07/18 11:00 Catheterized Urine [place] Count - Final >100,000 CFU/ML. 01/07/18 11:00 Catheterized Urine - Final Escherichia Coli 01/07/18 07:52 Stool Fecal Leukocyte Stain - Final Medications List Reviewed: Yes Assessment & Plan - Problems (Diagnosis) (1) Small bowel obstruction Current Visit: Yes Status: Acute Plan: Patient with partial small-bowel obstruction. Patient tolerating clear liquid diet. No significant nausea, vomiting or pain. Patient is having bowel movement. Encourage ambulation. Patient with C diff colitis and UTI. Will continue with antibiotic therapy. Overall improved. Case discussed with surgery. Will continue as above. (2) Abdominal mass Current Visit: Yes Status: Acute Plan: Mesenteric mass noted. Likely carcinoid. CT guided biopsy could not be done due to its location. This will need to be further assessed as an outpatient. Recommend colonoscopy in 4-6 weeks. Qualifiers: Abdominal location: right lower quadrant Qualified Code(s): R19.03 - Right lower quadrant abdominal swelling, mass and lump (3) Diabetes mellitus Current Visit: Yes Status: Chronic Plan: Will continue to provide a sliding scale. Will monitor and adjust appropriately. Qualifiers: Diabetes mellitus type: type 2 Diabetes mellitus correction insulin use: without termite technician use Diabetes mellitus complication status: with other specified complication Qualified Code(s): E11.69 - Type 2 diabetes mellitus with other specified complication (4) Renal insufficiency Current Visit: Yes Status: Acute Plan: Will continue with IV fluids. Likely from dehydration. Will monitor and adjust appropriately. (5) Diabetic neuropathy Current Visit: Yes Status: Chronic Plan: Will provide medication as needed Qualifiers: Diabetes mellitus type: type 2 Diabetes mellitus complication detail: diabetic polyneuropathy Qualified Code(s): E11.42 - Type 2 diabetes mellitus with diabetic polyneuropathy (6) UTI (urinary tract infection) Current Visit: Yes Status: Acute Plan: Urine culture positive for E coli. Diallo sensitivity noted therapy. Will adjust antibiotic therapy. Qualifiers: Urinary tract infection type: site unspecified Hematuria presence: without hematuria Qualified Code(s): N39.0 - Urinary tract infection, site not specified (7) Diarrhea Current Visit: Yes Status: Acute Plan: Patient with C diff colitis. Will continue with vancomycin. Qualifiers: Diarrhea type: unspecified type Qualified Code(s): R19.7 - Diarrhea, unspecified (8) Hypertension Onset Date: 01/25/17 Current Visit: No Status: Chronic Plan: Will continue with medication Qualifiers: Hypertension type: essential hypertension (9) Hypothyroidism Onset Date: 01/25/17 Current Visit: No Status: Chronic Plan: Will continue with medication Qualifiers: Hypothyroidism type: unspecified (10) History of breast cancer Current Visit: No Status: Chronic Plan: Patient with history of breast cancer and bilateral mastectomy. (11) Parkinsons Onset Date: 01/25/17 Current Visit: No Status: Chronic Plan: Will need to continue with her medication. (12) C. difficile colitis Current Visit: Yes Status: Acute Plan: Continue with medication. Patient will need colonoscopy in 4-6 weeks. Discharge Plan: Home Plan to discharge in: 24 Hours Time Spent Managing Pts Care (In Minutes): 55
[2018-01-09] MEDS: ENOXAPARIN 40 MG/0.4 ML SQ SCH (16:42)
[2018-01-09] MEDS: NACHLORIDE 0.45% 1,000 ML IV SCH ×2 (16:42→23:48)
--- NOTE | 2018-01-09 16:42 | P.PN ---
Date of Service: 01/09/18 S: Patient had no specific complaints today, says she feels much better, has been having bowel movements today. O: Vital signs are stable, abdomen is soft, no guarding or rebound not tympanic A: Patient is surgically stable, her partial small-bowel obstruction appears to be resolving. This lesion or area seen on the CT scan is not causing any actual problem at the moment. It could be worked up as an outpatient. At 78 years of age, with her comorbidities, do not think that it will require surgical intervention. P: Patient's diet is being advanced. If it is tolerated come morning time, she would be most likely fit for discharge. I have discussed this with her and she is excited here this days. We have discussed dietary intake at home, the need to keep more hydrated, ran the fact that she lives on a very low fiber diet consisting mostly of salmon shows is suboptimal. She will try to maintain better her fiber intake.
[2018-01-09] MEDS ORDERED: MINERAL OIL 30 ML UCUP GT ONE (18:00)
[2018-01-09] MEDS: AMOX/K CLAV 500 MG TAB PO SCH (20:25)
[2018-01-09] MEDS: ONDANSETRON 4 MG/2 ML VIAL IV PRN (23:44)
[2018-01-10] MEDS: THYROID 30 MG TAB PO SCH (05:21)
[2018-01-10] MEDS: VANCOMYCIN ORAL SOLN 250 MG/5 ML OSYR PO SCH ×5 (05:21→23:45)
[2018-01-10 05:24] LABS: Absolute Lymphocytes (CBC) 1.7 K/uL (0.7-4.9); Absolute Monocytes 1.7 K/uL (0.1-1.3); Absolute Neutrophil 6.2 K/uL (1.8-8.0); Basophils % 0.5 % (0-1.3); Eosinophils % 2.3 % (0-4.4); Lymphocytes % 16.9 % (15.3-44.8); MCH 32.5 pg (27.0-35.0); MCV 95.7 fL (80-100); MPV 7.5 fL (7.6-11.3); Monocytes % 17.7 % (3.3-12.3); RBC Red Blood Cell Count 4.59 M/uL (3.86-4.86)
[2018-01-10 05:26] VITALS: BMI 30.2
[2018-01-10 05:47] LABS: Magnesium 1.8 mg/dL (1.8-2.4); Potassium 3.2 mmol/L (3.5-5.1)
[2018-01-10] MEDS: INSULIN -REGULAR HUMAN 50 UNIT/0.5 ML ML SQ SCH ×4 (07:30→21:00)
[2018-01-10] MEDS ORDERED: NA CHLORIDE 0.9% 250 ML ONE (09:37)
[2018-01-10] MEDS: KCL 20 MEQ/100 mL IVPB 20 MEQ/100 ML BAG IV SCH ×2 (09:40→12:10)
[2018-01-10] MEDS: AMOX/K CLAV 500 MG TAB PO SCH ×2 (09:41→21:05)
[2018-01-10] MEDS: PROPRANOLOL HCL 60 MG SA CAP PO SCH ×2 (09:41→21:05)
[2018-01-10 10:27] LABS: Blood Morphology Comment NOT SEEN (NOT SEEN); Platelet Estimate ADEQ
--- NOTE | 2018-01-10 11:04 | P.PN ---
Subjective Date of Service: 01/10/18 Primary Care Provider: Unknown Chief Complaint: Abdominal pain Subjective: Improving (Patient appears improved. No significant nausea vomiting noted. Patient tolerating her diet. Patient having bowel movement.) Physical Examination - Vital Signs Temperature: 97.2 F Blood Pressure: 134/72 Pulse: 76 Respirations: 18 Pulse Ox (%): 92 - Physical Exam General: Alert, In no apparent distress, Cooperative HEENT: Atraumatic Neck: Supple Respiratory: Clear to auscultation bilaterally, Normal air movement Cardiovascular: Normal pulses, Regular rate/rhythm Gastrointestinal: Normal bowel sounds, Soft and benign, Non-distended, No tenderness (No significant tenderness noted. Much improved.), No masses, No rebound, No guarding Musculoskeletal: No erythema, No tenderness, No warmth Integumentary: No tenderness/swelling, No erythema, No warmth, No cyanosis Neurological: Normal speech, Normal strength at 5/5 x4 extr, Normal tone, Normal affect - Studies Microbiology Data (last 24 hrs): 01/07/18 11:00 Catheterized Urine [place] Count - Final >100,000 CFU/ML. 01/07/18 11:00 Catheterized Urine - Final Escherichia Coli Medications List Reviewed: Yes Assessment & Plan - Problems (Diagnosis) (1) Small bowel obstruction Current Visit: Yes Status: Acute Plan: Patient with partial small-bowel obstruction. Patient also with UTI and C diff colitis. Overall improved. She is passing bowel movement. No significant nausea this morning. Case discussed at length with surgery. Will continue with antibiotic therapy. Will ambulate patient. Will slowly advance diet. Anticipate discharge in the next 1-2 days. (2) Abdominal mass Current Visit: Yes Status: Acute Plan: Mesenteric mass noted. Likely carcinoid. CT guided biopsy could not be done due to its location. This will need to be further assessed as an outpatient. Recommend colonoscopy in 4-6 weeks. Qualifiers: Abdominal location: right lower quadrant Qualified Code(s): R19.03 - Right lower quadrant abdominal swelling, mass and lump (3) Diabetes mellitus Current Visit: Yes Status: Chronic Plan: Will continue to provide a sliding scale. Will monitor and adjust appropriately. Qualifiers: Diabetes mellitus type: type 2 Diabetes mellitus termite control technician insulin use: without termite control technician use Diabetes mellitus complication status: with other specified complication Qualified Code(s): E11.69 - Type 2 diabetes mellitus with other specified complication (4) Renal insufficiency Current Visit: Yes Status: Acute Plan: IV fluids adjusted. (5) Diabetic neuropathy Current Visit: Yes Status: Chronic Plan: Will provide medication as needed Qualifiers: Diabetes mellitus type: type 2 Diabetes mellitus complication detail: diabetic polyneuropathy Qualified Code(s): E11.42 - Type 2 diabetes mellitus with diabetic polyneuropathy (6) UTI (urinary tract infection) Current Visit: Yes Status: Acute Plan: Urine culture positive for E coli. Diallo sensitivity noted therapy. Patient now on oral medication. Will need treatment for 7 days. Qualifiers: Urinary tract infection type: site unspecified Hematuria presence: without hematuria Qualified Code(s): N39.0 - Urinary tract infection, site not specified (7) Diarrhea Current Visit: Yes Status: Acute Plan: Patient with C diff colitis. Will continue with vancomycin. Patient will need treatment for 10 days. Will add lactobacillus. Qualifiers: Diarrhea type: unspecified type Qualified Code(s): R19.7 - Diarrhea, unspecified (8) Hypertension Onset Date: 01/25/17 Current Visit: No Status: Chronic Plan: Will continue with medication, blood pressure stable. Qualifiers: Hypertension type: essential hypertension (9) Hypothyroidism Onset Date: 01/25/17 Current Visit: No Status: Chronic Plan: Will continue with medication Qualifiers: Hypothyroidism type: unspecified (10) History of breast cancer Current Visit: No Status: Chronic Plan: Patient with history of breast cancer and bilateral mastectomy. (11) Parkinsons Onset Date: 01/25/17 Current Visit: No Status: Chronic Plan: Will need to continue with her medication. (12) C. difficile colitis Current Visit: Yes Status: Acute Plan: Continue with medication. Patient will need treatment for 10 days. Will add lactobacillus. Patient will need colonoscopy in 4-6 weeks. (13) Obesity Current Visit: Yes Status: Chronic Plan: Will address lifestyle modification education. Qualifiers: Obesity type: due to excess calories Obesity classification: adult class 1 (BMI 30 - 34.9) Serious obesity comorbidity presence: with serious comorbidity Body mass index: BMI 30.0-30.9 Qualified Code(s): E66.09 - Other obesity due to excess calories; Z68.30 - Body mass index (BMI) 30.0-30.9, adult Discharge Plan: Home Plan to discharge in: 24 Hours Time Spent Managing Pts Care (In Minutes): 55
[2018-01-10] MEDS: NACHLORIDE 0.45% 1,000 ML IV SCH ×3 (12:00→23:45)
[2018-01-10] MEDS: ENOXAPARIN 40 MG/0.4 ML SQ SCH (18:11)
[2018-01-10] MEDS: LACTOBACILLUS/ACIDOPHILUS TAB PO SCH (21:05)
[2018-01-11 05:06] LABS: Absolute Lymphocytes (CBC) 1.5 K/uL (0.7-4.9); Absolute Monocytes 1.7 K/uL (0.1-1.3); Absolute Neutrophil 7.5 K/uL (1.8-8.0); Basophils % 0.6 % (0-1.3); Eosinophils % 1.7 % (0-4.4); Hematocrit 42.3 % (36.0-45.0); Lymphocytes % 13.4 % (15.3-44.8); MCV 94.2 fL (80-100); MPV 7.4 fL (7.6-11.3); Monocytes % 15.8 % (3.3-12.3); RBC Red Blood Cell Count 4.49 M/uL (3.86-4.86)
[2018-01-11 05:12] LABS: Magnesium 1.7 mg/dL (1.8-2.4); Potassium 3.8 mmol/L (3.5-5.1)
[2018-01-11 05:19] LABS: Blood Morphology Comment NOT SEEN (NOT SEEN); Platelet Estimate ADEQ; Urine White Blood Cell Casts OK
[2018-01-11] MEDS: THYROID 30 MG TAB PO SCH (05:45)
[2018-01-11] MEDS: VANCOMYCIN ORAL SOLN 250 MG/5 ML OSYR PO SCH ×4 (05:46→23:42)
[2018-01-11] MEDS ORDERED: POTASSIUM 25 MEQ EFFERV TAB PO ONE ×2 (06:00)
[2018-01-11] MEDS ORDERED: MAGNESIUM SULFATE 1 gm IVPB 1 GM/100 ML BAG IV ONE (06:00)
[2018-01-11] MEDS: INSULIN -REGULAR HUMAN 50 UNIT/0.5 ML ML SQ SCH ×4 (07:30→21:00)
[2018-01-11] MEDS: LACTOBACILLUS/ACIDOPHILUS TAB PO SCH ×2 (09:56→22:10)
[2018-01-11] MEDS: AMOX/K CLAV 500 MG TAB PO SCH ×2 (09:56→22:11)
[2018-01-11] MEDS: PROPRANOLOL HCL 60 MG SA CAP PO SCH ×2 (09:57→22:10)
--- NOTE | 2018-01-11 10:44 | P.PN ---
Subjective Date of Service: 01/11/18 Primary Care Provider: Unknown Chief Complaint: Abdominal pain Subjective: Other (Patient having bowel movements today. Some nausea and noted this morning. Patient reports that she ate well. Caregiver reports that she had some vomiting. And not able to tolerate food.) Physical Examination - Vital Signs Temperature: 97.2 F Blood Pressure: 145/65 Pulse: 71 Respirations: 18 Pulse Ox (%): 93 - Physical Exam General: Alert, In no apparent distress, Oriented x3, Cooperative HEENT: Atraumatic Neck: Supple Respiratory: Clear to auscultation bilaterally, Normal air movement Cardiovascular: Normal pulses, Regular rate/rhythm Gastrointestinal: Normal bowel sounds, Soft and benign, No masses, No rebound, No guarding, Distended (No significant distension noted.), Tenderness (Minimal pain to the epigastric region) Musculoskeletal: No erythema, No tenderness, No warmth Integumentary: No tenderness/swelling, No erythema, No warmth, No cyanosis Neurological: Normal speech, Normal strength at 5/5 x4 extr, Normal tone, Normal affect - Studies Microbiology Data (last 24 hrs): 01/07/18 07:52 Stool Culture & Sensitivity - Final Medications List Reviewed: Yes Assessment & Plan - Problems (Diagnosis) (1) Small bowel obstruction Current Visit: Yes Status: Acute Plan: Patient with partial small-bowel obstruction. Patient is having bowel movement. She is tolerating some food. Patient with UTI and C diff colitis. Will continue with medications. Case discussed in detail with radiology and surgery. Will order CT scan of the abdomen and pelvis to further evaluate. Await findings. Will keep the patient NPO for now. (2) Abdominal mass Current Visit: Yes Status: Acute Plan: Mesenteric mass noted. Likely carcinoid. CT guided biopsy could not be done due to its location. This will need to be further assessed as an outpatient. Recommend colonoscopy in 4-6 weeks. Qualifiers: Abdominal location: right lower quadrant Qualified Code(s): R19.03 - Right lower quadrant abdominal swelling, mass and lump (3) Diabetes mellitus Current Visit: Yes Status: Chronic Plan: Will continue to provide a sliding scale. Will monitor and adjust appropriately. 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 Renal function within normal range. (5) Diabetic neuropathy Current Visit: Yes Status: Chronic Plan: Will provide medication as needed Qualifiers: Diabetes mellitus type: type 2 Diabetes mellitus complication detail: diabetic polyneuropathy Qualified Code(s): E11.42 - Type 2 diabetes mellitus with diabetic polyneuropathy (6) UTI (urinary tract infection) Current Visit: Yes Status: Acute Plan: Urine culture positive for E coli. D[place] sensitivity noted therapy. Patient now on oral medication. Will need treatment for 7 days. Qualifiers: Urinary tract infection type: site unspecified Hematuria presence: without hematuria Qualified Code(s): N39.0 - Urinary tract infection, site not specified (7) Diarrhea Current Visit: Yes Status: Acute Plan: Patient with C diff colitis. Will continue with vancomycin. Patient will need treatment for 10 days. Lactobacillus added. Continue as above Qualifiers: Diarrhea type: unspecified type Qualified Code(s): R19.7 - Diarrhea, unspecified (8) Hypertension Onset Date: 01/25/17 Current Visit: No Status: Chronic Plan: Will continue with medication, blood pressure stable. Qualifiers: Hypertension type: essential hypertension (9) Hypothyroidism Onset Date: 01/25/17 Current Visit: No Status: Chronic Plan: Will continue with medication Qualifiers: Hypothyroidism type: unspecified (10) History of breast cancer Current Visit: No Status: Chronic Plan: Patient with history of breast cancer and bilateral mastectomy. (11) Parkinsons Onset Date: 01/25/17 Current Visit: No Status: Chronic Plan: Will need to continue with her medication. (12) C. difficile colitis Current Visit: Yes Status: Acute Plan: Continue with medication. Patient will need treatment for 10 days. Continue as above. Patient will need colonoscopy in 4-6 weeks. (13) Obesity Current Visit: Yes Status: Chronic Plan: Will address lifestyle modification education. Qualifiers: Obesity type: due to excess calories Obesity classification: adult class 1 (BMI 30 - 34.9) Serious obesity comorbidity presence: with serious comorbidity Body mass index: BMI 30.0-30.9 Qualified Code(s): E66.09 - Other obesity due to excess calories; Z68.30 - Body mass index (BMI) 30.0-30.9, adult Discharge Plan: Home Plan to discharge in: 24 Hours Time Spent Managing Pts Care (In Minutes): 55
[2018-01-11 11:11] VITALS: O2SAT 93
--- NOTE | 2018-01-11 12:15 | RAD REPORT ---
EXAM DESCRIPTION: CT - Abdomen Pelvis Wo Contrast - 01/11/2018 11:12 am CLINICAL HISTORY: Abdominal pain, possible small-bowel obstruction, ongoing nausea COMPARISON: January 07, 2018 TECHNIQUE: Axial [address] imaging of the abdomen and pelvis was performed without IV contrast. No IV contrast was given because of allergy, abnormal renal function, patient refusal or physician re quest. No oral contrast. All CT scans are performed using dose optimization technique as appropriate and may include automated exposure control or mA/KV adjustment according to patient size. FINDINGS: No pneumothorax or pleural effusion. Chronic interstitial lung disease noted. [place] small areas of scarring seen. In the medial anterior right base there is a 2.3 x 1.2 centimeter area of sp iculated density that is increased from the comparison is probably atelectasis. Growth of the mass wo uld not occur over the short interval. This can be monitored on subsequent imaging. The liver, spleen and pancreas show no suspicious findings on non-contrast imaging. Cholecystectomy c lips are present. No biliary tree dilatation. No hydronephrosis or suspicious renal mass. No significant adrenal finding. Isodense renal masses an d pyelonephritis cannot be excluded in the absence of IV contrast. The urinary bladder is without sig nificant finding. Air and fluid-filled stomach is noted and distended. Size is similar to the January 07 study. Most of t he oral contrast has exited the GI tract. Dilated proximal small bowel loops are still present. Sever ity of dilatation has not changed. Transition point remains the central abdomen. This is in relative proximity to the suspected 3-4 centimeter carcinoid mass in right-sided central abdominal fat. Distal to the transition point the small bowel is decompressed. Colon is mostly decompressed. An acute colo n process is not seen. No free air, pneumatosis or free fluid. No omental thickening. No suspicious bony findings. IMPRESSION: Dilated proximal small bowel loops have not changed since January 07. Transition point rem ains central mid abdomen in relative proximity to the suspected carcinoid mass right-sided mesenteric fat. No free air, abscess or surgically emergent finding. Most of the oral contrast administered January 07 has passed the GI tract. Full assessment is limited is the absence of IV contrast.
[2018-01-11] MEDS: NACHLORIDE 0.45% 1,000 ML IV SCH ×2 (14:40→19:40)
[2018-01-11] MEDS: ENOXAPARIN 40 MG/0.4 ML SQ SCH (17:23)
[2018-01-12] MEDS ORDERED: HYDRALAZINE HCL 20 MG/ML VIAL IV PRN (02:16)
[2018-01-12] MEDS: NACHLORIDE 0.45% 1,000 ML IV SCH (04:00)
[2018-01-12 05:26] LABS: Absolute Lymphocytes (CBC) 1.6 K/uL (0.7-4.9); Absolute Monocytes 1.9 K/uL (0.1-1.3); Absolute Neutrophil 8.6 K/uL (1.8-8.0); Basophils % 0.5 % (0-1.3); Eosinophils % 1.4 % (0-4.4); Hematocrit 43.2 % (36.0-45.0); MCH 32.3 pg (27.0-35.0); MCV 93.4 fL (80-100); MPV 7.9 fL (7.6-11.3); Monocytes % 15.2 % (3.3-12.3); RBC Red Blood Cell Count 4.63 M/uL (3.86-4.86)
[2018-01-12 05:41] LABS: Magnesium 1.8 mg/dL (1.8-2.4); Potassium 3.4 mmol/L (3.5-5.1)
[2018-01-12] MEDS: THYROID 30 MG TAB PO SCH (05:47)
[2018-01-12] MEDS: VANCOMYCIN ORAL SOLN 250 MG/5 ML OSYR PO SCH ×2 (05:48→11:34)
[2018-01-12] MEDS ORDERED: MAGNESIUM SULFATE 1 gm IVPB 1 GM/100 ML BAG IV ONE (06:11)
[2018-01-12] MEDS ORDERED: POTASSIUM 25 MEQ EFFERV TAB PO ONE (06:11)
[2018-01-12 06:32] LABS: Blood Morphology Comment NOT SEEN (NOT SEEN); Platelet Estimate ADEQ
[2018-01-12] MEDS: INSULIN -REGULAR HUMAN 50 UNIT/0.5 ML ML SQ SCH ×2 (07:30→11:30)
--- NOTE | 2018-01-12 08:29 | P.DS ---
Admission Date: 01/07/18 Discharge Date: 01/12/18 Primary Care Provider: Unknown Disposition: HOSPICE-HOME Discharge Condition: GOOD Reason for Admission: Abdominal pain Consultations: Surgery-Dr. Barajas Procedures: Repeat CT scan abdomen: COMPARISON: January 07, 2018 TECHNIQUE: Axial [address] imaging of the abdomen and pelvis was performed without IV contrast. No IV contrast was given because of allergy, abnormal renal function, patient refusal or physician request. No oral contrast. All CT scans are performed using dose optimization technique as appropriate and may include automated exposure control or mA/KV adjustment according to patient size. FINDINGS: No pneumothorax or pleural effusion. Chronic interstitial lung disease noted. [place] small areas of scarring seen. In the medial anterior right base there is a 2.3 x 1.2 centimeter area of spiculated density that is increased from the comparison is probably atelectasis. Growth of the mass would not occur over the short interval. This can be monitored on subsequent imaging. The liver, spleen and pancreas show no suspicious findings on non-contrast imaging. Cholecystectomy clips are present. No biliary tree dilatation. No hydronephrosis or suspicious renal mass. No significant adrenal finding. Isodense renal masses and pyelonephritis cannot be excluded in the absence of IV contrast. The urinary bladder is without significant finding. Air and fluid-filled stomach is noted and distended. Size is similar to the January 07 study. Most of the oral contrast has exited the GI tract. Dilated proximal small bowel loops are still present. Severity of dilatation has not changed. Transition point remains the central abdomen. This is in relative proximity to the suspected 3-4 centimeter carcinoid mass in right-sided central abdominal fat. Distal to the transition point the small bowel is decompressed. Colon is mostly decompressed. An acute colon process is not seen. No free air, pneumatosis or free fluid. No omental thickening. No suspicious bony findings. IMPRESSION: Dilated proximal small bowel loops have not changed since January 07. Transition point remains central mid abdomen in relative proximity to the suspected carcinoid mass right-sided mesenteric fat. No free air, abscess or surgically emergent finding. Most of the oral contrast administered January 07 has passed the GI tract. Full assessment is limited is the absence of IV contrast. 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 use: without senior living use Diabetes mellitus complication status: with other specified complication Qualified Code(s): E11.69 - Type 2 diabetes mellitus with other specified complication (4) Renal insufficiency Current Visit: Yes Status: Acute (5) Diabetic neuropathy Current Visit: Yes Status: Chronic Qualifiers: Diabetes mellitus type: type 2 Diabetes mellitus complication detail: diabetic polyneuropathy Qualified Code(s): E11.42 - Type 2 diabetes mellitus with diabetic polyneuropathy (6) UTI (urinary tract infection) Current Visit: Yes Status: Acute Qualifiers: Urinary tract infection type: site unspecified Hematuria presence: without hematuria Qualified Code(s): N39.0 - Urinary tract infection, site not specified (7) Diarrhea Current Visit: Yes Status: Acute Qualifiers: Diarrhea type: unspecified type Qualified Code(s): R19.7 - Diarrhea, unspecified (8) Hypertension Onset Date: 01/25/17 Current Visit: No Status: Chronic Qualifiers: Hypertension type: essential hypertension (9) Hypothyroidism Onset Date: 01/25/17 Current Visit: No Status: Chronic Qualifiers: Hypothyroidism type: unspecified (10) History of breast cancer Current Visit: No Status: Chronic (11) Parkinsons Onset Date: 01/25/17 Current Visit: No Status: Chronic (12) C. difficile colitis Current Visit: Yes Status: Acute (13) Obesity Current Visit: Yes Status: Chronic Qualifiers: Obesity type: due to excess calories Obesity classification: adult class 1 (BMI 30 - 34.9) Serious obesity comorbidity presence: with serious comorbidity Body mass index: BMI 30.0-30.9 Qualified Code(s): E66.09 - Other obesity due to excess calories; Z68.30 - Body mass index (BMI) 30.0-30.9, adult (14) Carcinoid tumor Current Visit: Yes Status: Suspected (15) Nausea & vomiting Current Visit: Yes Status: Acute Qualifiers: Vomiting type: unspecified Vomiting Intractability: unspecified Qualified Code(s): R11.2 - Nausea with vomiting, unspecified (16) GERD (gastroesophageal reflux disease) Current Visit: Yes Status: Suspected Qualifiers: Esophagitis presence: esophagitis presence not specified Qualified Code(s) : K21.9 - Gastro-esophageal reflux disease without esophagitis (17) Depression Current Visit: Yes Status: Chronic Qualifiers: Depression Type: unspecified Qualified Code(s): F32.9 - Major depressive disorder, single episode, unspecified (18) Insomnia Current Visit: Yes Status: Chronic Qualifiers: Insomnia type: unspecified Qualified Code(s): G47.00 - Insomnia, unspecified Brief History of Present Illness: 78-year-old female presented emergency room with nausea, vomiting and abdominal pain. Patient with past medical history of breast cancer status post bilateral mastectomy 20 years ago, hypertension, diabetes, hypothyroidism, Parkinson's. For several weeks the patient has been having increasing nausea and vomiting. Patient also reports diarrhea and abdominal pain. Symptoms became worse. She came to the ER for further evaluation. CT scan revealed a 27 mm soft tissue structure within the upper pelvis to the right of midline. Patient likely has carcinoid tumor. Patient was admitted for further evaluation. Hospital Course: During the course of her stay patient was further assessed for her nausea, vomiting, diarrhea and abdominal pain. Dilated proximal small bowel loops were dilated. There appeared to be a transition point within the central abdomen. And their relative proximity there was a 3 cm carcinoid mass in the right central abdominal fat. Partial small bowel obstruction was suspected. Patient was monitored closely. Surgery was consulted to further assess. Patient proceeded with medical therapy. No surgical intervention was recommended. Patient slowly improved. Patient still reports some fullness with eating. She is having diarrhea. Patient found to have a UTI and C diff colitis was positive. Patient currently on medication for both. Repeat CT scan showed improvement with passage of contrast to the GI tract. 3 cm carcinoid mass still present unchanged. I had a long discussion with the patient concerning advance directives. Patient wishes to be DNR. Patient understands that this may be a malignant neoplasm. After discussion with the patient with family present, patient desires to go home with hospice. She does not desire any further workup which may include colonoscopy or biopsy. Patient also does not want any further intervention that may require PEG tube placement. At discharge patient will continue with Augmentin suspension 5 mL twice daily for 3 days and vancomycin 125 mg(250mg/5ml susp) 2.5 mL 4 times a day for 7 days to cover for UTI and C diff colitis respectively. For nausea and vomiting patient will be provided Zofran 4 mg 1 p.o. every 6 hr as needed for nausea. Patient may need to limit her oral intake if with increased nausea and vomiting due to CT findings. This was addressed in detail with the patient. Patient will likely continue with diarrhea. This to be monitored closely. May need to consider repeating C diff culture after treatment. Patient has diabetes. She will continue with her medication-Januvia 50 mg daily. Recommendation is to maintain blood sugars less than 140 fasting and less than 200 after meals. Further adjustment can be done by her PCP. Patient has hypertension. She will continue with her medication-Inderal LA 60 mg 1 pill twice daily. Recommendation is to maintain blood pressures less 150/ 80. Further adjustment can be done by her PCP. Patient has GERD. Patient will continue with Protonix 40 mg 1 pill once daily. Patient has depression. She will continue with Wellbutrin 150 mg 1 pill twice daily. Patient may continue with trazodone 75 mg 1 pill daily for insomnia as needed. Patient has diabetic neuropathy. Patient will continue with Neurontin 600 mg at night and 300 mg in the morning. Patient has hypothyroidism. Patient will continue with [place] thyroid 90 mg 1 pill daily. Patient with CAD. Patient continue with Plavix 75 mg daily. Patient with history of COPD. Patient will continue with her inhalers. Further adjustment can be done by hospice. Vital Signs/Physical Exam: Temp Pulse Resp BP Pulse Ox 97.5 F 74 16 160/70 H 93 01/12/18 00:00 01/12/18 00:00 01/12/18 00:00 01/12/18 04:41 01/12/18 00:00 General: Alert, In no apparent distress, Oriented x3, Cooperative HEENT: Atraumatic Neck: Supple Respiratory: Clear to auscultation bilaterally, Normal air movement Cardiovascular: Normal pulses, Regular rate/rhythm Gastrointestinal: Normal bowel sounds, Soft and benign, Non-distended, No masses , No rebound, No guarding, Tenderness (No significant tenderness noted.) Musculoskeletal: No erythema, No tenderness, No warmth Integumentary: No tenderness/swelling, No erythema, No warmth, No cyanosis Neurological: Normal speech, Normal strength at 5/5 x4 extr, Normal tone, Normal affect Laboratory Data at Discharge: WBC 12.3 K/uL (4.3-10.9) H 01/12/18 04:30 Hgb 14.9 g/dL (12.0-15.0) 01/12/18 04:30 Hct 43.2 % (36.0-45.0) 01/12/18 04:30 Plt Count 328 K/uL (152-406) 01/12/18 04:30 PT 14.9 SECONDS (9.5-12.5) H 01/07/18 10:30 INR 1.26 01/07/18 10:30 APTT 30.6 SECONDS (24.3-36.9) 01/07/18 10:30 Sodium 140 mmol/L (136-145) 01/12/18 04:30 Potassium 3.4 mmol/L (3.5-5.1) L 01/12/18 04:30 BUN 9 mg/dL (7-18) 01/12/18 04:30 Creatinine 0.70 mg/dL (0.55-1.3) 01/12/18 04:30 Glucose 116 mg/dL (74-106) H 01/12/18 04:30 Magnesium 1.8 mg/dL (1.8-2.4) 01/12/18 04:30 Total Bilirubin 0.6 mg/dL (0.2-1.0) 01/07/18 10:30 AST 25 U/L (15-37) 01/07/18 10:30 ALT 28 U/L (12-78) 01/07/18 10:30 Alkaline Phosphatase 82 U/L (45-117) 01/07/18 10:30 Lipase 166 U/L (73-393) 01/07/18 10:30 Home Medications: B-12 1,000 mcg IM SEECOM 11/25/12 Bupropion HCl [Wellbutrin] 150 mg PO BIDWM 11/25/12 Calcium 600 iu PO BID 11/25/12 Clopidogrel Bisulfate [Plavix*] 75 mg PO DAILY AT SUPPER 11/25/12 Gabapentin [Neurontin] 300 mg PO BREAKFAST 11/25/12 Multivitamin [Daily Multivitamin] 1 tab PO BID 11/25/12 Niacin Sr [Niaspan*] 1,000 mg PO BEDTIME 11/25/12 Thyroid,Pork [[place] Thyroid] 90 mg PO [id number] 11/25/12 Trazodone [Desyrel*] 0.5 tab PO BEDTIME 11/25/12 Turmeric 450 mg PO DAILY AT SUPPER 11/25/12 lamoTRIgine [Lamictal*] 150 mg PO DAILY AT SUPPER 11/25/12 Cyclosporine [Restasis] 2 each OP BID 05/12/15 Fluoxetine HCl [Prozac] 40 mg PO DAILY 05/12/15 Vit A/Vit C/Vit E/Zinc/Copper [Preservision Areds Softgel] 1 each PO BID Aspirin 1 tab PO DAILY 01/07/18 Carboxymethylcellulos/Glycerin [Refresh Optive Gel Eye Drops] 1 drop OPTH BEDTIME 01/07/18 Gabapentin [Neurontin*] 600 mg PO DAILY AT SUPPER 01/07/18 Montelukast Sodium [Singulair] 10 mg PO BREAKFAST 01/07/18 Propranolol [Inderal LA*] 1 cap PO BID 01/07/18 Sitagliptin Phosphate [Januvia] 1 tab PO LUNCH 01/07/18 Umeclidinium Brm/Vilanterol Tr [Anoro Ellipta 62.5-25 Mcg INH] 1 inh IH DAILY Amox/K Clav [Augmentin 600 MG/5 ML Susp] 5 ml PO BID #1 bottle 01/12/18 Ondansetron [Zofran Odt] 4 mg PO QID PRN #15 tab.rapdis 01/12/18 Pantoprazole [Protonix Tab] 40 mg PO DAILY #30 tab 01/12/18 Vancomycin Oral Soln [Vancocin HCl*] 2.5 ml PO Q6HR #1 bottle 01/12/18 New Medications: Amox/K Clav [Augmentin 600 MG/5 ML Susp] 5 ml PO BID #1 bottle Ondansetron [Zofran Odt] 4 mg PO QID PRN #15 tab.rapdis PRN Reason: Nausea / Vomiting Pantoprazole [Protonix Tab] 40 mg PO DAILY #30 tab Vancomycin Oral Soln [Vancocin HCl*] 2.5 ml PO Q6HR #1 bottle Patient Discharge Instructions: 1. Patient will go home with hospice. Further adjustment in medication can be done by hospice. 2. Patient presented with nausea, vomiting, diarrhea and abdominal pain. CT scan revealed possible partial small bowel obstruction with a 3 cm carcinoid mass in the right central abdominal fat. Surgery was consulted to further assess. Patient proceeded with medical therapy. No surgical intervention was recommended. Patient slowly improved. Repeat CT scan shows improvement and no obstruction. Patient also found to have a UTI and C diff colitis. At discharge patient will continue with Augmentin suspension 5 mL twice daily for 3 days and vancomycin 125 mg( 250mg/5ml susp) 2.5 mL 4 times a day for 7 days to cover for UTI and C diff colitis respectively. For nausea and vomiting patient will be provided Zofran 4 mg 1 p.o. every 6 hr as needed for nausea. Patient may need to limit her oral intake if with increased nausea and vomiting due to CT findings. This was addressed in detail with the patient. Patient will likely continue with diarrhea. This is to be monitored closely. May need to consider repeating C diff culture after treatment. I had a long discussion with the patient concerning advance directives and overall prognosis. Patient wishes to be DNR. Patient understands that this may be a malignant neoplasm. After discussion with the patient with family present, patient desires to go home with hospice. She does not desire further workup including colonoscopy, biopsy with possible surgical intervention. She also does not want PEG tube. 3. Patient has diabetes. She will continue with her medication-Januvia 50 mg daily. Recommendation is to maintain blood sugars less than 140 fasting and less than 200 after meals. Further adjustment can be done by her PCP. 4. Patient has hypertension. She will continue with her medication-Inderal LA 60 mg 1 pill twice daily. Recommendation is to maintain blood pressures less 150/80. Further adjustment can be done by her PCP. 5. Patient has GERD. Patient will continue with Protonix 40 mg 1 pill once daily. 6. Patient has depression. She will continue with Wellbutrin 150 mg 1 pill twice daily. Patient may continue with trazodone 75 mg 1 pill daily for insomnia as needed. 7. Patient has diabetic neuropathy. Patient will continue with Neurontin 600 mg at night and 300 mg in the morning. 8. Patient has hypothyroidism. Patient will continue with [place] thyroid 90 mg 1 pill daily. 9. Patient with CAD. Patient continue with Plavix 75 mg daily. 10. Patient with history of COPD. Patient will continue with her inhalers. 11. Further adjustment can be done by hospice. Diet: Clear to full liquid as tolerated Activity: Fall precautions Time spent managing pt's care (in minutes): 55
[2018-01-12] MEDS: LACTOBACILLUS/ACIDOPHILUS TAB PO SCH (09:00)
[2018-01-12 09:32] VITALS: BP 136/65; TEMP 97.9
[2018-01-12] MEDS: AMOX/K CLAV 500 MG TAB PO SCH (10:06)
[2018-01-12] MEDS: PROPRANOLOL HCL 60 MG SA CAP PO SCH (10:07)
== END 2018-01-12 11:50 | disposition hospice, home (50) | DRG 372 ==
LOC: ER 09:54 → ERHOLD 11:38 → 2ND 12:47
PROVIDERS: ADMIT Internal Medicine; ATTEND Family Medicine
PROC: 5A09357 Assistance with Respiratory Ventilation, Less than 24 Consecutive Hours, Continuous Positive Airway Pressure (ICD-10-PCS; principal; 2018-01-09)
DX: A04.72 Enterocolitis due to Clostridium difficile, not specified as recurrent (principal); K56.600 Partial intestinal obstruction, unspecified as to cause; N39.0 Urinary tract infection, site not specified; C7A.098 Malignant carcinoid tumors of other sites; E11.42 Type 2 diabetes mellitus with diabetic polyneuropathy; I10 Essential (primary) hypertension; E03.9 Hypothyroidism, unspecified; Z85.3 Personal history of malignant neoplasm of breast; G20 Parkinson's disease; E66.09 Other obesity due to excess calories; Z68.30 Body mass index [BMI] 30.0-30.9, adult; K21.9 Gastro-esophageal reflux disease without esophagitis; F32.9 Major depressive disorder, single episode, unspecified; G47.00 Insomnia, unspecified; Z66 Do not resuscitate; Z51.5 Encounter for palliative care; R11.2 Nausea with vomiting, unspecified; Z79.84 Long term (current) use of oral hypoglycemic drugs; I25.10 Atherosclerotic heart disease of native coronary artery without angina pectoris; Z79.02 Long term (current) use of antithrombotics/antiplatelets; Z79.82 Long term (current) use of aspirin; N28.9 Disorder of kidney and ureter, unspecified; B96.20 Unspecified Escherichia coli [E. coli] as the cause of diseases classified elsewhere; Z88.2 Allergy status to sulfonamides; Z88.3 Allergy status to other anti-infective agents; Z91.041 Radiographic dye allergy status
CPT/HCPCS: 36415; 51702; 71045; 74018; 74176; 80048; 80076; 81003; 82550; 82553; 82962; 83690; 83735; 83880; 84132; 84484; 85025; 85610; 85730; 87045; 87046; 87077; 87086; 87088; 87186; 87493; 89055; 93005; 94660; 96361; 96374; 96375; 97163; 99285; J0360; J0696; J1650; J2405; J2550; J3475; J7030

== ENCOUNTER 2021-04-30 09:05 | Inpatient (IN) | payer OTHER ==
--- OUTSIDE RECORDS SUMMARY | 2021-04-30 09:07 | XMS REPORT | Continuity of Care Document ---
:1940 Author Organization [facility] t Address [address] [place] [address] [address]. [address] [place] [address] Care Team Providers Name Role Phone ANNETTE BURNETTE Attending Clinician Unavailable ANNETTE BURNETTE Admitting Clinician Unavailable Problems This patient has no known problems. Allergies, Adverse Reactions, Alerts This patient has no known allergies or adverse reactions. Medications This patient has no known medications. Procedures This patient has no known procedures. Encounters Start End Encounter Admission Attending Care Care Encounter Source Date/Time Date/Time Type Type Clinicians Facility Department ID 2020-08-06 2020-08-[address] 10:16:00 10:16:00 Results Test Description Test Time Test Comments Results Result [facility] e Comments TISSUE EXAM 2017-10-10 Surgical Pathology 13:16:00 Report Case: [id number] Authorizing Provider: Jean Marie Burnette MD Collected: 10/05/2017 1300 Ordering Location: [facility] Received: 10/05/2017 1424 PERIOPERATIVE SERVICES Pathologist: Rubens Lipscomb MD Specimen: Plaque, RIGHT CAROTID ARTERY PLAQUE ARTERY, RIGHT CAROTID, ENDARTERECTOMY:CALCIFI C ATHEROSCLEROTIC PLAQUE Signing Pathologist Direct Phone Line: [phone] ally signed by Rubens Lipscomb MD on 10/10/2017 at 1:16 [id number]; [id number] stenosisRight carotid artery plaqueThe specimen is received in saline labeled with the patient's information labeled "right carotid artery plaque" and consists of a tubular shaped segment of calcified tissue measuring 2.5 cm in length x 0.5 cm in diameter. The specimen is sectioned, submitted entirely A1 for decalcification. CG/pl POCT-GLUCOSE METER 2017-10-09 05:33:00 Test Item Value Reference Range Interpretation Comme [facility] POC-GLUCOSE METER (BEAKER) (test 122 mg/dL 70-[address] [facility] [address] [place] [address] [id number] 05:17:00 Test Item Value Reference Range Interpretation Comments MAGNESIUM (BEAKER) (test code = 1.6 mg/dL 1.6-2.6 627) BASIC METABOLIC [id number] 05:17:00 Test Item Value Reference Range Interpretation Comments SODIUM (BEAKER) 135 meq/L 136-145 L (test code = 381) POTASSIUM (BEAKER) 4.2 meq/L 3.5-5.1 (test code = 379) CHLORIDE (BEAKER) 104 meq/L 98-107 (test code = 382) CO2 (BEAKER) (test 21 meq/L 22-29 L code = 355) BLOOD UREA NITROGEN 16 mg/dL 7-21 (BEAKER) (test code = 354) CREATININE (BEAKER) 0.82 mg/dL 0.57-1.25 (test code = 358) GLUCOSE RANDOM 99 mg/dL 70-105 (BEAKER) (test code = 652) CALCIUM (BEAKER) 8.3 mg/dL 8.4-10.2 L (test code = 697) EGFR (BEAKER) (test 68 mL/min/1.73 ESTIMA OMAR GFR IS code = 1092) sq m NOT ACCURATE CREATININE CLEARANCE IN PREDICTING GLOMERULAR FILTRATION RATE . ESTIMATED GFR I S NOT APPLICABLE FOR DIALYSIS PATIEN TS. CBC (HEMOGRAM ONLY)2017-10-06 04:31:00 Test Item Value Reference Range Interpretation Comments WHITE BLOOD CELL COUNT (BEAKER) 7.7 K/ L 3.5-10.5 (test code = 775) RED BLOOD CELL COUNT (BEAKER) 3.84 M/ L 3.93-5.22 L (test code = 761) HEMOGLOBIN (BEAKER) (test code = 11.9 GM/DL 11.2-15.7 410) HEMATOCRIT (BEAKER) (test code = 37.3 % 34.1-44.9 411) MEAN CORPUSCULAR VOLUME (BEAKER) 97.1 fL 79.4-94.8 H (test code = 753) MEAN CORPUSCULAR HEMOGLOBIN 31.0 pg 25.6-32.2 (BEAKER) (test code = 751) MEAN CORPUSCULAR HEMOGLOBIN CONC 31.9 GM/DL 32.2-35.5 L (BEAKER) (test code = 752) RED CELL DISTRIBUTION WIDTH 14.5 % 11.7-14.4 H (BEAKER) (test code = 412) PLATELET COUNT (BEAKER) (test 245 K/CU MM 150-450 code = 756) MEAN PLATELET VOLUME (BEAKER) 9.2 fL 9.4-12.3 L (test code = 754) NUCLEATED RED BLOOD CELLS 0 /100 WBC 0-0 (BEAKER) (test code = 413) POCT-GLUCOSE [id number] 08:33:00 Test Item Value Reference Range Interpretation Comments POC-GLUCOSE METER 125 mg/dL 70-[address] [facility] [address] (BEAKER) (test code = JENNIFER Aguilar KATH GEORGE 1538) [id number] HEMOGLOBIN [id number] 16:54:00 Test Item Value Reference Range Interpretation Comments HEMOGLOBIN A1C (BEAKER) (test code = 5.9 % 4.3-6.1 368) BASIC METABOLIC [id number] 12:35:00 Test Item Value Reference Range Interpretation Comments SODIUM (BEAKER) 137 meq/L 136-145 (test code = 381) POTASSIUM (BEAKER) 4.2 meq/L 3.5-5.1 (test code = 379) CHLORIDE (BEAKER) 105 meq/L 98-107 (test code = 382) CO2 (BEAKER) (test 22 meq/L 22-29 code = 355) BLOOD UREA NITROGEN 15 mg/dL 7-21 (BEAKER) (test code = 354) CREATININE (BEAKER) 0.84 mg/dL 0.57-1.25 (test code = 358) GLUCOSE RANDOM 92 mg/dL 70-105 (BEAKER) (test code = 652) CALCIUM (BEAKER) 9.8 mg/dL 8.4-10.2 (test code = 697) EGFR (BEAKER) (test 66 mL/min/1.73 ESTIMA OMAR GFR IS code = 1092) sq m NOT ACCURATE CREATININE CLEARANCE IN PREDICTING GLOMERULAR FILTRATION RATE . ESTIMATED GFR I S NOT APPLICABLE FOR DIALYSIS PATIEN TS. PROTHROMBIN [id number] 12:34:00 Test Item Value Reference Range Interpretation Comments PROTIME (BEAKER) (test code = 14.3 seconds 11.7-14.7 759) INR (BEAKER) (test code = 370) 1.1 <=5.9 RECOMMENDED COUMADIN/WARFARIN INR THERAPY RANGESSTANDARD DOSE: 2.0 - 3.0 Includes: PROPHYLAXIS forvenous thrombosis, systemic embolization; TREATMENT for venous thrombosis and/or pulmonary embolus.HIGH RISK: Target INR is 2.5-3.5 for patients with mechanical heart valves.CBC W/PLT COUNT & AUTO DIFFERENTIAL 2017-09-26 12:30:00 Test Item Value Reference Range Interpretation Comments WHITE BLOOD CELL COUNT (BEAKER) 8.4 K/ L 3.5-10.5 (test code = 775) RED BLOOD CELL COUNT (BEAKER) 4.48 M/ L 3.93-5.22 (test code = 761) HEMOGLOBIN (BEAKER) (test code = 14.3 GM/DL 11.2-15.7 410) HEMATOCRIT (BEAKER) (test code = 42.9 % 34.1-44.9 411) MEAN CORPUSCULAR VOLUME (BEAKER) 95.8 fL 79.4-94.8 H (test code = 753) MEAN CORPUSCULAR HEMOGLOBIN 31.9 pg 25.6-32.2 (BEAKER) (test code = 751) MEAN CORPUSCULAR HEMOGLOBIN CONC 33.3 GM/DL 32.2-35.5 (BEAKER) (test code = 752) RED CELL DISTRIBUTION WIDTH 14.0 % 11.7-14.4 (BEAKER) (test code = 412) PLATELET COUNT (BEAKER) (test 290 K/CU MM 150-450 code = 756) MEAN PLATELET VOLUME (BEAKER) 9.0 fL 9.4-12.3 L (test code = 754) NUCLEATED RED BLOOD CELLS 0 /100 WBC 0-0 (BEAKER) (test code = 413) NEUTROPHILS RELATIVE PERCENT 68 % (BEAKER) (test code = 429) LYMPHOCYTES RELATIVE PERCENT 18 % (BEAKER) (test code = 430) MONOCYTES RELATIVE PERCENT 11 % (BEAKER) (test code = 431) EOSINOPHILS RELATIVE PERCENT 1 % (BEAKER) (test code = 432) BASOPHILS RELATIVE PERCENT 1 % (BEAKER) (test code = 437) NEUTROPHILS ABSOLUTE COUNT 5.75 K/ L 1.56-6.13 (BEAKER) (test code = 670) LYMPHOCYTES ABSOLUTE COUNT 1.49 K/ L 1.18-3.74 (BEAKER) (test code = 414) MONOCYTES ABSOLUTE COUNT (BEAKER) 0.90 K/ L 0.24-0.36 H (test code = 415) EOSINOPHILS ABSOLUTE COUNT 0.11 K/ L 0.04-0.36 (BEAKER) (test code = 416) BASOPHILS ABSOLUTE COUNT (BEAKER) 0.09 K/ L 0.01-0.08 H (test code = 417) IMMATURE GRANULOCYTES-RELATIVE 1 % 0-1 PERCENT (BEAKER) (test code = 2801) RAD, CHEST, 2 [id number] 11:54:00Reason for Exam:->Pre-OpFINAL REPORT Chest two views [...] Webber Verified Date/Time: 09/26/2017 11:54:23 Reading Location: [facility] Radiology Reading Room
[2021-04-30] MEDS ORDERED: LEVALBUTEROL 1.25 MG/3 ML NEB ONE (09:25)
[2021-04-30] MEDS ORDERED: ADENOSINE 6 MG/ 2ML VIAL IV ONE ×2 (09:31→12:31)
[2021-04-30] MEDS ORDERED: NA CHLORIDE 0.9% 1,000 ML ONE (10:10)
[2021-04-30 10:14] LABS: Absolute Lymphocytes (CBC) 0.9 K/uL (0.7-4.9); Basophils % 0.3 % (0-1.3); Hematocrit 51.2 % (36.0-45.0); Lymphocytes % 10.8 % (15.3-44.8); MPV 7.9 fL (7.6-11.3); RBC Red Blood Cell Count 5.47 M/uL (3.86-4.86)
[2021-04-30 10:19] LABS: Protime INR 1.27
[2021-04-30 10:33] LABS: ALT/SGPT 18 U/L (12-78); AST/SGOT 12 U/L (15-37); Albumin 3.7 g/dL (3.4-5.0); Alkaline Phosphatase 91 U/L (45-117); BUN Blood Urea Nitrogen 50 mg/dL (7-18); Bicarbonate 24 mmol/L (21-32); Bilirubin Direct 0.2 mg/dL (0-0.2); Bilirubin Total 0.9 mg/dL (0.2-1.0); Glucose Level 224 mg/dL (74-106); Lipase 117 U/L (73-393); Magnesium 2.1 mg/dL (1.8-2.4); NT PRO-BNP 1867 pg/mL (<450); Potassium 3.9 mmol/L (3.5-5.1); Protein, Total 8.9 g/dL (6.4-8.2); Sodium Level 142 mmol/L (136-145); Troponin (Emerg Dept Use Only) < 0.02 ng/mL (0.0-0.045)
[2021-04-30] MEDS ORDERED: PANTOPRAZOLE 40 MG INJ ONE (10:51)
[2021-04-30] MEDS ORDERED: ONDANSETRON 4 MG/2 ML VIAL ONE ×2 (10:51→15:35)
[2021-04-30] MEDS ORDERED: WATER FOR INJ,STERILE 10 ML ONE (10:52)
--- NOTE | 2021-04-30 11:57 | RAD REPORT ---
EXAM DESCRIPTION: Erickson Single View04/30/2021 9:59 am CLINICAL HISTORY: sob COMPARISON: 2018 FINDINGS: Mild left basilar opacities may represent atelectasis or pneumonia. Remainder of the lungs appear clear. Heart is normal size
--- NOTE | 2021-04-30 11:58 | RAD REPORT ---
EXAM DESCRIPTION: CT - Chest Abd Pelvis Wo Con - 04/30/2021 11:37 am CLINICAL HISTORY: Chest and abdominal pain COMPARISON: CT chest 2017 CT abdomen 2018 TECHNIQUE: Computed axial tomography of the chest, abdomen and pelvis was obtained. Oral contrast wa s given. IV contrast was not requested. All CT scans are performed using dose optimization technique as appropriate and may include automated exposure control or mA/KV adjustment according to patient size. FINDINGS: The evaluation of mediastinum, peng, vessels and solid organs is limited secondary to the lack of IV contrast administration Centrilobular emphysema. Mild left lower lobe opacities. No mediastinal or hilar lymphadenopathy is seen. The esophagus is dilated and fluid-filled. A pleural effusion is not present. A pericardial effusion is not seen. A lung consolidation is not present. The lungs are essentially clear. The liver, spleen, pancreas, adrenals and kidneys appear grossly normal The stomach is markedly dilated. Moderate dilatation of jejunum. 4.5 centimeter partially calcified m ass with spiculations has enlarged since the prior exam in which it measured approximately 3.5 centim eters. Ileum is decompressed. No free air. Hysterectomy. There is no evidence of diverticulitis. IMPRESSION: 4.5 centimeter partially calcified mass within the right mesentery of the abdomen at the level of the iliac crest has enlarged. 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 It probably is the cause of the small bowel obstruction.
[2021-04-30] MEDS ORDERED: METOPROLOL TARTRATE 5 MG/5 ML INJ IV ONE (12:31)
[2021-04-30 12:53] LABS: Urine Blood Trace-intact (Negative); Urine Glucose Negative (Negative); Urine Protein 1+ (Negative); Urine Specific Gravity >=1.030 (1.005-1.030)
[2021-04-30] MEDS ORDERED: CEFEPIME 2 GM in NA CHLORIDE 0.9% 100 ML IV ONE (13:00)
[2021-04-30 13:18] LABS: Urine Bacteria 20-50 /HPF (<20)
[2021-04-30 13:19] LABS: Urine Mucus LIGHT /HPF (NONE SEEN)
--- NOTE | 2021-04-30 13:21 | ER ---
Nurse's Notes [facility] Name: Lizbeth Plata Age: 81 yrs Sex: Female : 1940 Arrival Date: 04/30/2021 Time: 09:08 Bed 4 Private MD: Diagnosis: Small Bowel Obstruction;Acute kidney failure, unspecified;Intra-abdominal and pelvic swelling, mass and lump, unspecified site Presentation: 04/30 09:10 Chief complaint: Patient states: VOMITING x3 DAYS, WEAKNESS SINCE Y/D. Coronavirus bp screen: At this time, the client does not indicate any symptoms associated with coronavirus-19. Ebola Screen: No symptoms or risks identified at this time. Initial Sepsis Screen: Does the patient meet any 2 criteria? HR > 90 bpm. No. Patient's initial sepsis screen is negative. Does the patient have a suspected source of infection? No. Patient's initial sepsis screen is negative. Risk Assessment: Do you want to hurt yourself or someone else? Patient reports no desire to harm self or others. Onset of symptoms is unknown. 09:10 Method Of Arrival: Wheelchair bp 09:10 Acuity: SYLVIA 2 bp Triage Assessment: 09:10 General: Appears distressed, uncomfortable, obese, Behavior is cooperative, appropriate bp for age, anxious. Pain: Denies pain. EENT: No deficits noted. Neuro: Level of Consciousness is awake, alert, obeys commands, Oriented to Appropriate for age. Cardiovascular: Rhythm is SVT. Respiratory: No deficits noted. GI: Reports nausea, vomiting. : No signs and/or symptoms were reported regarding the genitourinary system. Derm: No deficits noted. Musculoskeletal: No deficits noted. Historical: - Allergies: 09:10 Betadine; bp 09:10 Iodine; bp 09:10 Sulfa (Sulfonamide Antibiotics); bp - Home Meds: 09:10 Anoro Ellipta 62.5-25 mcg/actuation inhalation dsdv 1 puff once daily [Active]; aspirin bp 81 mg Oral TbEC 1 tab once daily [Active]; Januvia 50 mg Oral tab once daily [Active]; Lamictal 150 mg Oral tab 1 tab once daily [Active]; Neurontin 300 mg Oral cap 1 cap twice a day [Active]; metformin 500 mg oral tab 1 tab 2 times per day [Active]; PreserVision AREDS 7,160-113-100 [id number] Oral tab twice a day [Active]; Plavix 75 mg Oral tab 1 tab once daily [Active]; Niaspan Extended-Release 1,000 mg Oral Tb24 1 tab once daily [Active]; calcium vitamin d daily [Active]; propranolol 60 mg Oral tab 1 tab 2 times per day [Active]; Prozac 40 mg Oral cap 1 cap once daily [Active]; Zantac 150 mg Oral tab 1 tab 2 times per day [Active]; Wellbutrin 75 mg oral tab 2 tabs twice a day [Active]; Vitamin B-12 1,000 mcg/mL injection soln BIWEEKLY [Active]; turmeric root extract 450 mg Oral cap nightly [Active]; trazodone 150 mg Oral tab 0.5 tab nightly [Active]; thyroid (pork) Oral 1 tab once daily [Active]; Singulair 10 mg Oral tab 1 tab once daily [Active]; Restasis 0.05 % ophthalmic dpet 1 drop 2 times per day [Active]; - PMHx: 09:10 Parkinsons; Hypothyroidism; Chronic obstructive lung disease; Diabetes mellitus; bp - Immunization history:: Adult Immunizations up to date. - Social history:: Smoking status: Patient denies any tobacco usage or history of. Screenin:10 Abuse screen: Denies threats or abuse. Denies injuries from another. Nutritional bp screening: No deficits noted. Tuberculosis screening: No symptoms or risk factors identified. Fall Risk None identified. Assessment: 09:10 General: SEE TRIAGE NOTE. GI: Abdomen is non-distended, obese. bp 09:45 Reassessment: PT ON EKG WITH RHYTHM STRIP FOR ADENOSINE. bp 10:15 Reassessment: PT CONVERTED TO ST, REGULAR RHYTHM NOTED ON MONITOR. bp 11:30 Reassessment: No changes from previously documented assessment. Patient and/or family bp updated on plan of care and expected duration. Pain level reassessed. 12:30 Reassessment: No changes from previously documented assessment. Patient and/or family bp updated on plan of care and expected duration. Pain level reassessed. GOMEZ IN PLACE. PT TBA 2/2 SBO. 14:00 Reassessment: No changes from previously documented assessment. Patient and/or family kd3 updated on plan of care and expected duration. Pain level reassessed. TRANSFER INITIATED. 16:00 Reassessment: No changes from previously documented assessment. Patient and/or family kd3 updated on plan of care and expected duration. Pain level reassessed. PT AND FAMILY REFUSING TRANSFER. ADMIT INITIATED. 17:00 Reassessment: No changes from previously documented assessment. Patient and/or family kd3 updated on plan of care and expected duration. Pain level reassessed. HOSPITALIST AT B/S FOR EVAL. 18:00 Reassessment: No changes from previously documented assessment. Patient and/or family kd3 updated on plan of care and expected duration. Pain level reassessed. Vital Signs: 09:10 BP 141 / 72; Pulse 165; Resp 24; Temp 98; Pulse Ox 90% on R/A; bp 10:30 BP 163 / 75; Pulse 122; Resp 22; Pulse Ox 98% ; bp 11:30 BP 175 / 76; Pulse 124; Resp 20; Pulse Ox 94% ; bp 12:30 BP 173 / 79; Pulse 124; Resp 22; Pulse Ox 90% ; bp 13:00 BP 170 / 74; Pulse 96; Resp 18; Pulse Ox 89% ; kd3 14:00 BP 172 / 82; Pulse 94; Resp 20; Pulse Ox 95% ; kd3 15:00 BP 196 / 81; Pulse 97; Resp 18; Pulse Ox 95% ; kd3 16:00 BP 197 / 77; Pulse 100; Resp 18; Pulse Ox 95% ; kd3 17:00 BP 185 / 69; Pulse 100; Resp 19; Pulse Ox 93% ; kd3 18:00 Pulse 109; Resp 14; Pulse Ox 95% ; kd3 ED Course: 09:08 Patient arrived in ED. mr 09:10 Arm band placed on. bp 09:10 Patient has correct armband on for positive identification. Bed in low position. Call bp light in reach. Side rails up X2. Adult w/ patient. 09:13 Umair Crowley PA is PHCP. cp 09:14 Jimy Marino MD is Attending Physician. cp 09:45 Inserted saline lock: 22 gauge in left wrist, using aseptic technique. Blood collected. bp 09:59 XRAY Chest (1 view) In Process Unspecified. EDMS 10:33 Kevin Murray, RN is Primary Nurse. bp 10:42 Triage completed. bp 11:38 CT Chest Abdomen Pelvis W/O Contrast In Process Unspecified. EDMS 15:38 Josr Lipscomb MD is Hospitalizing Provider. cp 17:55 NGT: inserted 12 Fr. via right nare. verified placement of air over stomach, verified jl7 return of gastric contents, to intermittent suction. Returned gastric contents. Amount of gastric contents removed by suction 850ml. Patient tolerated well. Administered Medications: 09:45 Drug: Zofran (Ondansetron) 4 mg Route: IVP; Site: left wrist; bp 17:58 Follow up: Response: No adverse reaction bp 09:45 Drug: ProTONIX (pantoprazole) 40 mg Route: IVP; Site: left wrist; bp 17:58 Follow up: Response: No adverse reaction bp 09:45 Drug: Xopenex (levalbuterol) (3) 1.25 mg Route: Inhalation; bp 10:15 Drug: Adenosine 6 mg Route: IVP; Site: left wrist; bp 12:34 Follow up: Response: Marked relief of symptoms bp 10:15 Drug: NS 0.9% 500 ml Route: IV; Rate: bolus; Site: left wrist; bp 17:57 Follow up: IV Status: Completed infusion; IV Intake: 500ml bp 10:15 Drug: NS 0.9% 500 ml Route: IV; Rate: bolus; Site: left wrist; bp 17:57 Follow up: IV Status: Completed infusion; IV Intake: 500ml bp 10:37 CANCELLED (Physician Discretion): Metoprolol 2.5 mg IVP every 5 minutes; Hold for SBP < cp 100 or HR < 60. x3 10:39 CANCELLED (Physician Discretion): NS 0.9% 250 ml IV at bolus once cp 12:15 Drug: Cefepime 2 grams Route: IVPB; Rate: 200 ml/hr; Infused Over: 30 mins; Site: right bp forearm; 17:57 Follow up: IV Status: Completed infusion; IV Intake: 100ml bp 12:57 Drug: NS 0.9% 1000 ml Route: IV; Rate: 1 bolus; Site: left wrist; bp 17:56 Follow up: IV Status: Completed infusion; IV Intake: 1000ml bp 13:00 Drug: NS 0.9% 1000 ml Route: IV; Rate: 100 ml/hr; Site: left wrist; bp 17:56 Follow up: IV Status: Completed infusion; IV Intake: 1000ml bp 13:00 Drug: Metoprolol 5 mg Route: IVP; Site: left wrist; bp 13:05 Follow up: Response: No adverse reaction bp 16:34 Drug: morphine 2 mg Route: IVP; Site: left hand; bp 17:55 Follow up: Response: No adverse reaction; Pain is decreased bp 16:35 Drug: metroNIDAZOLE 500 mg Volume: 100 ml; Route: IVPB; Infused Over: 30 mins; Site: bp left hand; 17:54 Follow up: IV Status: Completed infusion; IV Intake: 100ml bp 16:35 Drug: Ciprofloxacin 200 mg Volume: 100 ml; Route: IVPB; Infused Over: 60 mins; Site: bp left hand; 17:54 Follow up: IV Status: Completed infusion; IV Intake: 100ml bp 16:35 Drug: Zofran (Ondansetron) 4 mg Route: IVP; Site: left hand; bp 17:55 Follow up: Response: No adverse reaction bp 17:45 Drug: Viscous Lidocaine Liquid (4 %) 5 ml Route: Mucous Membrane; jl7 Intake: 17:54 IV: 100ml; Total: 100ml. bp 17:54 IV: 100ml; Total: 200ml. bp 17:56 IV: 1000ml; Total: 1200ml. bp 17:56 IV: 1000ml; Total: 2200ml. bp 17:57 IV: 100ml; Total: 2300ml. bp 17:57 IV: 500ml; Total: 2800ml. bp 17:57 IV: 500ml; Total: 3300ml. bp Outcome: 13:21 ER care complete, transfer ordered by MD. cp 15:39 Decision to Hospitalize by Provider. cp 05/01 14:57 Patient left the ED. iw Signatures: Dispatcher [employer] DANIELDC GilmarAdry Irene, RN RN iw Umair Crowley PA PA cp Krishan Hankins RN RN jl7 Kevin Murray RN RN bp Doucette, Kyli, RN RN kd3 Corrections: (The following items were deleted from the chart) 04/30 10:45 09:10 Home Meds: Wellbutrin 150 mg Oral twice a day; bp bp
--- NOTE | 2021-04-30 13:22 | EDPHYS ---
Physician Documentation [facility] Name: Lizbeth Plata Age: 81 yrs Sex: Female : 1940 Arrival Date: 04/30/2021 Time: 09:08 Bed 4 Private MD: ED Physician Jimy Marino HPI: 04/30 09:25 This 81 yrs old Female presents to ER via Unassigned with complaints of Vomiting, cp Breathing Difficulty, Weakness. 09:25 The patient presents to the emergency department with nausea, that is moderate, cp vomiting, that is continuous. 09:25 Onset: The symptoms/episode began/occurred 2 day(s) ago. cp 09:25 Possible causes: unknown. Associated signs and symptoms: Pertinent positives: abdominal cp pain, anorexia, constipation, abdominal distension, Pertinent negatives: diarrhea, dysuria, fever, GI bleeding. Severity of symptoms: in the emergency department the symptoms are unchanged despite home interventions. Historical: - Allergies: 09:10 Betadine; bp 09:10 Iodine; bp 09:10 Sulfa (Sulfonamide Antibiotics); bp - Home Meds: 09:10 Anoro Ellipta 62.5-25 mcg/actuation inhalation dsdv 1 puff once daily [Active]; aspirin bp 81 mg Oral TbEC 1 tab once daily [Active]; Januvia 50 mg Oral tab once daily [Active]; Lamictal 150 mg Oral tab 1 tab once daily [Active]; Neurontin 300 mg Oral cap 1 cap twice a day [Active]; metformin 500 mg oral tab 1 tab 2 times per day [Active]; PreserVision AREDS 7,160-113-100 [id number] Oral tab twice a day [Active]; Plavix 75 mg Oral tab 1 tab once daily [Active]; Niaspan Extended-Release 1,000 mg Oral Tb24 1 tab once daily [Active]; calcium vitamin d daily [Active]; propranolol 60 mg Oral tab 1 tab 2 times per day [Active]; Prozac 40 mg Oral cap 1 cap once daily [Active]; Zantac 150 mg Oral tab 1 tab 2 times per day [Active]; Wellbutrin 75 mg oral tab 2 tabs twice a day [Active]; Vitamin B-12 1,000 mcg/mL injection soln BIWEEKLY [Active]; turmeric root extract 450 mg Oral cap nightly [Active]; trazodone 150 mg Oral tab 0.5 tab nightly [Active]; thyroid (pork) Oral 1 tab once daily [Active]; Singulair 10 mg Oral tab 1 tab once daily [Active]; Restasis 0.05 % ophthalmic dpet 1 drop 2 times per day [Active]; - PMHx: 09:10 Parkinsons; Hypothyroidism; Chronic obstructive lung disease; Diabetes mellitus; bp - Immunization history:: Adult Immunizations up to date. - Social history:: Smoking status: Patient denies any tobacco usage or history of. ROS: 09:30 Constitutional: Positive for chills, Negative for body aches, fever, poor PO intake. cp 09:30 Eyes: Negative for injury, pain, redness, and discharge. cp 09:30 Cardiovascular: Negative for chest pain, edema. 09:30 Respiratory: Positive for shortness of breath, at rest. Negative for cough, wheezing. 09:30 Abdomen/GI: Positive for abdominal pain, nausea and vomiting, constipation, abdominal distension, Negative for diarrhea. 09:30 Neuro: Positive for weakness, Negative for altered mental status, dizziness, headache. cp 09:30 All other systems are negative. Exam: 09:31 ECG was reviewed by the Attending Physician. cp 09:33 Constitutional: The patient appears in no acute distress, alert, awake, cp non-diaphoretic, non-toxic, well developed, well nourished, uncomfortable. 09:33 Head/Face: Normocephalic, atraumatic. cp 09:33 Eyes: Periorbital structures: appear normal, Conjunctiva: normal, no exudate, no injection, Sclera: no appreciated abnormality, Lids and lashes: appear normal, bilaterally. 09:33 ENT: External ear(s): are unremarkable, Nose: is normal, Mouth: Lips: dry, Oral mucosa: dry, Posterior pharynx: Airway: no evidence of obstruction, patent. 09:33 Neck: ROM/movement: is normal, is supple, without pain, no range of motions limitations, no meningismus. 09:33 Chest/axilla: Inspection: normal, Palpation: is normal, no crepitus, no tenderness. 09:33 Cardiovascular: Rate: tachycardic, Rhythm: regular, Edema: is not appreciated, JVD: is not appreciated. 09:33 Respiratory: mild respiratory distress is noted, Respirations: labored breathing, that is moderate, shallow respirations, that is moderate, Breath sounds: decreased breath sounds, that are mild, throughout. 09:33 Abdomen/GI: Inspection: distension, that is moderate, in the abdomen diffusely, Bowel sounds: active, all quadrants, Palpation: soft, in all quadrants, mild abdominal tenderness, in all quadrants, rebound tenderness, is not appreciated, involuntary guarding, is not appreciated. 09:33 Back: pain, is absent, ROM is normal. 09:33 Skin: cellulitis, is not appreciated, no rash present. 09:33 Neuro: Orientation: to person, place \T\ time. Mentation: is normal. 10:18 ECG was reviewed by the Attending Physician. Vital Signs: 09:10 BP 141 / 72; Pulse 165; Resp 24; Temp 98; Pulse Ox 90% on R/A; bp 10:30 BP 163 / 75; Pulse 122; Resp 22; Pulse Ox 98% ; bp 11:30 BP 175 / 76; Pulse 124; Resp 20; Pulse Ox 94% ; bp 12:30 BP 173 / 79; Pulse 124; Resp 22; Pulse Ox 90% ; bp 13:00 BP 170 / 74; Pulse 96; Resp 18; Pulse Ox 89% ; kd3 14:00 BP 172 / 82; Pulse 94; Resp 20; Pulse Ox 95% ; kd3 15:00 BP 196 / 81; Pulse 97; Resp 18; Pulse Ox 95% ; kd3 16:00 BP 197 / 77; Pulse 100; Resp 18; Pulse Ox 95% ; kd3 17:00 BP 185 / 69; Pulse 100; Resp 19; Pulse Ox 93% ; kd3 18:00 Pulse 109; Resp 14; Pulse Ox 95% ; kd3 MDM: 09:16 Patient medically screened. cp 13:15 Data reviewed: vital signs, nurses notes, lab test result(s), EKG, radiologic studies, cp CT scan, plain films, I have discussed the patient's presentation/case with the attending Emergency Department Physician;. 13:15 Test interpretation: by ED physician or midlevel provider: ECG, plain radiologic cp studies. 13:56 Physician consultation: was contacted at 13:56, DR Martinez, general surgery, will cp consult and requests transfer to services of hospitalist. 14:15 Physician consultation: DR Millard, hospitalist \T\[facility], will accept patient cp as transfer. 04/30 09:24 Order name: Basic Metabolic Panel; Complete Time: 10:37 cp 04/30 10:38 Interpretation: Normal except: CL 97; GLUC 224; BUN 50; CRE 2.64; GFR 17; CA 10.2. 04/30 09:24 Order name: CBC with Diff; Complete Time: 10:18 cp 04/30 11:03 Interpretation: Normal except: RBC 5.47; HGB 17.0; HCT 51.2; MN% 15.7; LYM% 10.8. 04/30 09:24 Order name: LFT's; Complete Time: 10:37 04/30 12:12 Interpretation: Normal except: AST 12; TP 8.9; GLOB 5.2; A/G 0.7. 04/30 09:24 Order name: Magnesium; Complete Time: 10:37 04/30 09:24 Order name: NT PRO-BNP; Complete Time: 10:37 cp 04/30 09:24 Order name: PT-INR; Complete Time: 10:31 cp 04/30 10:31 Interpretation: Abnormal: PT 14.6. 04/30 09:24 Order name: Troponin (emerg Dept Use Only); Complete Time: 10:37 cp 04/30 12:13 Interpretation: TROPED < 0.02; Reviewed. 04/30 09:24 Order name: Lactate; Complete Time: 10:37 04/30 12:12 Interpretation: Abnormal: LAC 7.5. 04/30 09:24 Order name: Procalcitonin; Complete Time: 11:03 cp 04/30 12:13 Interpretation: Abnormal: Procalcitonin 13.27. 04/30 09:24 Order name: Blood Culture Adult (2) cp 04/30 09:24 Order name: Lipase; Complete Time: 10:37 cp 04/30 09:24 Order name: Urine Microscopic Only; Complete Time: 13:54 04/30 12:11 Order name: SARS-COV-2 RT PCR; Complete Time: 13:06 EDMS 04/30 09:24 Order name: XRAY Chest (1 view); Complete Time: 12:48 04/30 12:48 Interpretation: Report review. 04/30 10:39 Order name: CT Chest Abdomen Pelvis W/O Contrast; Complete Time: 12:48 04/30 12:53 Interpretation: Report reviewed. 04/30 12:53 Order name: Urine Dipstick-Ancillary; Complete Time: 13:06 [facility] 04/30 13:20 Order name: Urine Culture [facility] 04/30 13:56 Order name: Lactate Sepsis 2 HR Follow-up EDMT 04/30 17:56 Order name: Abdomen 1 View (KUB) XRAY bp 04/30 18:54 Order name: RAD [facility] 04/30 23:42 Order name: Glucose, Ancillary Testing [facility] 05/01 05:40 Order name: Glucose, Ancillary Testing [facility] 05/01 05:57 Order name: CBC with Automated Diff [facility] 05/01 06:19 Order name: Comprehensive Metabolic Panel [facility] 05/01 06:19 Order name: Magnesium [facility] 05/01 07:10 Order name: Manual Differential [facility] 05/01 10:58 Order name: RAD [facility] 05/01 12:33 Order name: Glucose, Ancillary Testing [facility] 04/30 09:24 Order name: EKG; Complete Time: 09:25 04/30 09:24 Order name: Cardiac monitoring; Complete Time: 10:54 04/30 09:24 Order name: EKG - Nurse/Tech; Complete Time: 10:54 04/30 09:24 Order name: IV Saline Lock; Complete Time: 10:54 04/30 09:24 Order name: Labs collected and sent; Complete Time: 10:54 04/30 09:24 Order name: O2 Per Protocol; Complete Time: 10:54 04/30 09:24 Order name: O2 Sat Monitoring; Complete Time: 10:54 04/30 09:24 Order name: Urine Dipstick-Ancillary (obtain specimen); Complete Time: 19:08 04/30 12:25 Order name: Phillips; Complete Time: 12:57 04/30 12:54 Order name: NG Tube; Complete Time: 17:55 04/30 14:10 Order name: EKG; Complete Time: 14:10 04/30 14:10 Order name: EKG - Nurse/Tech; Complete Time: 19:08 04/30 16:57 Order name: CONS Physician Consult EDMS EC:31 Rate is 179 beats/min. Rhythm is regular. QRS interval is normal. QT interval is cp normal. Interpreted by me. Reviewed by me. 10:18 Rate is 136 beats/min. Rhythm is regular. UT interval is normal. QRS interval is cp normal. QT interval is normal. Interpreted by me. Reviewed by me. Administered Medications: 09:45 Drug: Zofran (Ondansetron) 4 mg Route: IVP; Site: left wrist; bp 17:58 Follow up: Response: No adverse reaction bp 09:45 Drug: ProTONIX (pantoprazole) 40 mg Route: IVP; Site: left wrist; bp 17:58 Follow up: Response: No adverse reaction bp 09:45 Drug: Xopenex (levalbuterol) (3) 1.25 mg Route: Inhalation; bp 10:15 Drug: Adenosine 6 mg Route: IVP; Site: left wrist; bp 12:34 Follow up: Response: Marked relief of symptoms bp 10:15 Drug: NS 0.9% 500 ml Route: IV; Rate: bolus; Site: left wrist; bp 17:57 Follow up: IV Status: Completed infusion; IV Intake: 500ml bp 10:15 Drug: NS 0.9% 500 ml Route: IV; Rate: bolus; Site: left wrist; bp 17:57 Follow up: IV Status: Completed infusion; IV Intake: 500ml bp 10:37 CANCELLED (Physician Discretion): Metoprolol 2.5 mg IVP every 5 minutes; Hold for SBP < cp 100 or HR < 60. x3 10:39 CANCELLED (Physician Discretion): NS 0.9% 250 ml IV at bolus once cp 12:15 Drug: Cefepime 2 grams Route: IVPB; Rate: 200 ml/hr; Infused Over: 30 mins; Site: right bp forearm; 17:57 Follow up: IV Status: Completed infusion; IV Intake: 100ml bp 12:57 Drug: NS 0.9% 1000 ml Route: IV; Rate: 1 bolus; Site: left wrist; bp 17:56 Follow up: IV Status: Completed infusion; IV Intake: 1000ml bp 13:00 Drug: NS 0.9% 1000 ml Route: IV; Rate: 100 ml/hr; Site: left wrist; bp 17:56 Follow up: IV Status: Completed infusion; IV Intake: 1000ml bp 13:00 Drug: Metoprolol 5 mg Route: IVP; Site: left wrist; bp 13:05 Follow up: Response: No adverse reaction bp 16:34 Drug: morphine 2 mg Route: IVP; Site: left hand; bp 17:55 Follow up: Response: No adverse reaction; Pain is decreased bp 16:35 Drug: metroNIDAZOLE 500 mg Volume: 100 ml; Route: IVPB; Infused Over: 30 mins; Site: bp left hand; 17:54 Follow up: IV Status: Completed infusion; IV Intake: 100ml bp 16:35 Drug: Ciprofloxacin 200 mg Volume: 100 ml; Route: IVPB; Infused Over: 60 mins; Site: bp left hand; 17:54 Follow up: IV Status: Completed infusion; IV Intake: 100ml bp 16:35 Drug: Zofran (Ondansetron) 4 mg Route: IVP; Site: left hand; bp 17:55 Follow up: Response: No adverse reaction bp 17:45 Drug: Viscous Lidocaine Liquid (4 %) 5 ml Route: Mucous Membrane; jl7 Disposition: 05/02 09:14 Co-signature as Attending Physician, Jimy Marino MD I agree with the assessment and kdr plan of care. Disposition Summary: 04/30/21 15:39 Hospitalization Ordered Hospitalization Status: Inpatient Admission cp Provider: Josr Lipscomb cp Condition: Serious(04/30/21 15:39) cp Problem: new(04/30/21 15:39) cp Symptoms: have improved(04/30/21 15:39) cp Bed/Room Type: Standard cp Location: Telemetry/MedSurg (Inpatient)(05/01/21 14:10) em1 Room Assignment: 223(05/01/21 14:10) em1 Diagnosis - Small Bowel Obstruction cp - Acute kidney failure, unspecified(04/30/21 15:39) cp - Intra-abdominal and pelvic swelling, mass and lump, unspecified site(04/30/21 15:39)cp Forms: - Medication Reconciliation Form cp - SBAR form cp Signatures: Dispatcher [employer] EDMS Jimy Marino MD MD kdr Martinez, Eric em1 Umair Crowley PA PA cp Courtney Guerrero RN RN Krishan Hankins RN RN jl7 Terri, Kevin, RN RN bp Corrections: (The following items were deleted from the chart) 04/30 10:37 10:19 Metoprolol 2.5 mg IVP every 5 minutes; Hold for SBP < 100 or HR < 60. x3 ordered. cp cp 10:38 10:18 Normal except: RBC 5.47; HGB 17.0; HCT 51.2. cp cp 10:39 10:19 NS 0.9% 250 ml IV at bolus once ordered. cp cp 10:45 09:10 Home Meds: Wellbutrin 150 mg Oral twice a day; bp bp 11:03 10:38 Normal except: RBC 5.47; HGB 17.0; HCT 51.2; MN% 15.7. cp cp 12:11 11:13 CORONAVIRUS+MR.LAB.BRZ ordered. EDMS EDMS 15:38 13:21 Doctor cp cp 15:38 13:21 [facility] cp cp 15:38 13:21 Higher level of care cp cp 15:38 13:21 Stable cp cp 15:38 13:21 new cp cp 15:38 13:21 have improved cp cp 15:38 13:21 Acute kidney failure, unspecified cp cp 15:38 13:21 Nausea with vomiting, unspecified cp cp 15:38 13:21 Small Bowel Obstruction cp cp 15:38 13:21 Intra-abdominal and pelvic swelling, mass and lump, unspecified site cp cp 21:22 15:39 Telemetry/MedSurg (Inpatient) cp cg 21:22 15:39 cp cg 05/01 14:10 04/30 21:22 [facility] ER HOLD cg em1 05/01 14:10 04/30 21:22 ERHOLD- cg em1
[2021-04-30] MEDS ORDERED: MORPHINE 4 MG/ML SYR ONE (15:39)
[2021-04-30] MEDS ORDERED: Ciprofloxacin 200mg IV 200 MG/100 ML IV.SOLN. IV ONE (15:39)
[2021-04-30] MEDS ORDERED: METRONIDAZOLE 500mg IVPB 500 MG/100 ML BAG IV ONE ×2 (15:39→23:11)
--- NOTE | 2021-04-30 17:05 | P.HP ---
Certification for Inpatient Patient admitted to: Inpatient With expected LOS: >2 Midnights Practitioner: I am a practitioner with admitting privileges, knowledge of patient current condition, hospital course, and medical plan of care. Services: Services provided to patient in accordance with Admission requirements found in Title 42 Section 412.3 of the Code of Federal Regulations Patient History Date of Service: 04/30/21 Reason for admission: SBO, abdominal mass History of Present Illness: 81-year-old female, PMH: COPD, NIDDM 2, neuropathy, depression/anxiety, hypothyroidism, Parkinson's Brought into the ED due to nausea, vomiting, abdominal distention, no bowel movement in several days. Patient reports some slight chills/diaphoresis intermittently over the last day or 2. She reports nausea and vomiting over the last 2-3 days, has not been able to eat/keep anything substantially down. In the ED, CT consistent with a small bowel obstruction, and noted to have a right pelvic mass which is likely the cause of this obstruction. General surgery was consulted, recommended transfer to tertiary care center for IR, possible biopsy, may need surgery. Patient and patient's MPOA stated that she does not want to go and proceed with any surgical option, but she would like to continue with medical management. For this reason, she remained in this hospital for admission Patient also presented to the ED in SVT, heart rate in the 170s, responded to adenosine, and IV metoprolol. She was given sepsis bolus, lactate found to be significantly elevated, and subsequently improved. NG tube was attempted but patient unable to tolerate. Allergies iodine Allergy (Mild, Verified 09/11/17 14:30) Itching povidone-iodine [From Betadine] Allergy (Verified 01/07/18 15:42) Unknown soap [From Betadine] Allergy (Verified 01/07/18 15:42) Unknown Sulfa (Sulfonami Allergy (Uncoded 01/07/18 12:53) Unknown Sulfa (Sulfonamide Antibi Allergy (Uncoded 09/29/17 18:08) Unknown Home Medications: B-12 1,000 mcg IM SEECOM 11/25/12 Bupropion HCl [Wellbutrin] 150 mg PO BIDWM 11/25/12 Calcium 600 iu PO BID 11/25/12 Clopidogrel Bisulfate [Plavix*] 75 mg PO DAILY AT SUPPER 11/25/12 Gabapentin [Neurontin] 300 mg PO BREAKFAST 11/25/12 Multivitamin [Daily Multivitamin] 1 tab PO BID 11/25/12 Niacin Sr [Niaspan*] 1,000 mg PO BEDTIME 11/25/12 Thyroid,Pork [[place] Thyroid] 90 mg PO [id number] 11/25/12 Trazodone [Desyrel*] 0.5 tab PO BEDTIME 11/25/12 Turmeric 450 mg PO DAILY AT SUPPER 11/25/12 lamoTRIgine [Lamictal*] 150 mg PO DAILY AT SUPPER 11/25/12 Cyclosporine [Restasis] 2 each OP BID 05/12/15 Fluoxetine HCl [Prozac] 40 mg PO DAILY 05/12/15 Vit A/Vit C/Vit E/Zinc/Copper [Preservision Areds Softgel] 1 each PO BID 05/12 Aspirin 1 tab PO DAILY 01/07/18 Carboxymethylcellulos/Glycerin [Refresh Optive Gel Eye Drops] 1 drop OPTH BEDTIME 01/07/18 Gabapentin [Neurontin*] 600 mg PO DAILY AT SUPPER 01/07/18 Montelukast Sodium [Singulair] 10 mg PO BREAKFAST 01/07/18 Propranolol [Inderal LA*] 1 cap PO BID 01/07/18 Sitagliptin Phosphate [Januvia] 1 tab PO LUNCH 01/07/18 Umeclidinium Brm/Vilanterol Tr [Anoro Ellipta 62.5-25 Mcg INH] 1 inh IH DAILY 01/07/18 Amox/K Clav [Augmentin 600 MG/5 ML Susp] 5 ml PO BID #1 bottle 01/12/18 Ondansetron [Zofran Odt] 4 mg PO QID PRN #15 tab.rapdis 01/12/18 Pantoprazole [Protonix Tab] 40 mg PO DAILY #30 tab 01/12/18 Vancomycin HCl 125 mg PO QID #28 capsule 01/12/18 Vancomycin Oral Soln [Vancocin HCl*] 2.5 ml PO Q6HR #1 bottle 01/12/18 - Past Medical/Surgical History Diabetic: Yes -: parkinsons -: neuropathy -: arthritis -: allergies -: Hypertension -: Diabetes -: Hypothyroidism -: History of breast cancer -: gabriela. mastectomy 20 years back -: cholecystectomy -: hysterectomy - Family History Mother -: Heart disease Father -: Heart disease - Social History Smoking Status: Never smoker Alcohol use: No CD- Drugs: No Caffeine use: No Place of Residence: Home Review of Systems 10-point ROS is otherwise unremarkable Physical Examination - Physical Exam General: Alert, Oriented x3, Mild distress (Appears uncomfortable) HEENT: Mucous membr. moist/pink, Sclerae nonicteric Neck: Supple Respiratory: Diminished (At bases bilaterally), Other Cardiovascular: No edema, No murmurs, Irregular heart rate/rhythm (Sinus tachycardia) Gastrointestinal: Distended, Tenderness (Mild diffuse) Musculoskeletal: No tenderness Integumentary: No rashes, No significant lesion Neurological: Normal speech, Normal affect Urinary: Phillips catheter (Placed in ED) - Studies Laboratory Data (last 24 hrs) 04/30/21 09:52: PT 14.6 H, INR 1.27 04/30/21 09:52: WBC 8.60, Hgb 17.0 H, Hct 51.2 H, Plt Count 383 04/30/21 09:52: Sodium 142, Potassium 3.9, BUN 50 H, Creatinine 2.64 H, Glucose 224 H, Magnesium 2.1, Total Bilirubin 0.9, AST 12 L, ALT 18, Alkaline Phosphatase 91, Lipase 117 Assessment and Plan - Advance Directives Does patient have a Living Will: Yes Does patient have a Durable POA for Healthcare: Yes Physician Review Additional Text: Problem list Small bowel obstruction, likely secondary to pelvic mass Pelvic mass, enlarged COPD NIDDM 2 Parkinson's Depression/anxiety GERD I had a long discussion with the patient and the medical power of state attorney, and one of her caregivers. Patient wishes to be DNR/DNI, but would otherwise want everything else done with the exception of surgery/procedure. She is okay with IV fluids, medications, and even cardioversion if needed. But states if her heart stops, or any sort of cardiopulmonary arrest, she does not want to be resuscitated. N.p.o., IV fluids Attempt NG tube again As needed pain medication Medical management/supportive care at this point General surgery consulted Obtain home medications and continue as appropriate, n.p.o. Dispo: anticipate hospitalization > 2-3 days Time Spent Managing Pts Care (In Minutes): 60
[2021-04-30] MEDS ORDERED: LIDOCAINE VISCOUS 2% SOLN 15 ML UDC ONE (17:30)
--- NOTE | 2021-04-30 18:53 | RAD REPORT ---
EXAM DESCRIPTION: RAD - Abdomen 1 View (KUB) - 04/30/2021 6:45 pm CLINICAL HISTORY: Device placement nasogastric tube placement FINDINGS: Nasogastric tube has its tip near the junction of the distal stomach and duodenum
[2021-04-30] MEDS ORDERED: ONDANSETRON 4 MG/2 ML VIAL IV PRN (20:30)
[2021-04-30] MEDS ORDERED: D5 0.45 NS 1,000 ML IV ONE (20:55)
[2021-04-30] MEDS: D5 0.45 NS 1,000 ML IV SCH (20:57)
[2021-05-01] MEDS: METRONIDAZOLE 500mg IVPB 500 MG/100 ML BAG IV SCH ×3 (00:04→16:37)
--- NOTE | 2021-05-01 01:53 | P.INFCA ---
Sepsis Focused Assessment - Focused Assessment Complete? Sepsis Focused Assessment Completed?: Yes - Sepsis Screen Result Severe Sepsis: Negative Septic Shock: Negative - Evaluation Current stage of sepsis: Ruled out Reason for ruling out sepsis: does not meet criteria - Vital Signs Reviewed: Yes Temperature: 98.2 F Heart rate: 108 Blood Pressure: 153/60 Respiratory Rate: 19 O2 Sat by Pulse Oximetry: 97 - Examination Date exam was performed: 04/30/21 Time exam was performed: 23:00 Heart: Regular rate/rhythm Lungs: Diminished air movement Peripheral pulses: 3+ Normal Peripheral pulse location: Radial Capillary refill: <2 Seconds Skin examination: Normal turgor
[2021-05-01 05:54] LABS: Absolute Lymphocytes (CBC) 0.6 K/uL (0.7-4.9); Basophils % 0.9 % (0-1.3); Hematocrit 42.9 % (36.0-45.0); Lymphocytes % 8.7 % (15.3-44.8); MPV 7.9 fL (7.6-11.3); RBC Red Blood Cell Count 4.57 M/uL (3.86-4.86)
[2021-05-01 06:15] LABS: Albumin 2.9 g/dL (3.4-5.0); Bilirubin Total 0.6 mg/dL (0.2-1.0); Potassium 3.5 mmol/L (3.5-5.1)
[2021-05-01 06:17] LABS: Protein, Total 7.3 g/dL (6.4-8.2)
[2021-05-01 07:09] LABS: Blood Morphology Comment NOT SEEN (NOT SEEN); Platelet Estimate ADEQ
[2021-05-01] MEDS ORDERED: METOPROLOL TARTRATE 5 MG/5 ML INJ IV STA ×2 (08:49→15:19)
[2021-05-01] MEDS ORDERED: METOPROLOL TARTRATE 5 MG/5 ML INJ IV ONE (08:55)
[2021-05-01] MEDS ORDERED: D5 0.45 NS 1,000 ML IV ONE (08:55)
[2021-05-01] MEDS ORDERED: METRONIDAZOLE 500mg IVPB 500 MG/100 ML BAG IV ONE (08:55)
[2021-05-01] MEDS ORDERED: ENOXAPARIN 30 MG/0.3 ML SQ ONE (08:55)
[2021-05-01] MEDS: D5 0.45 NS 1,000 ML IV SCH ×2 (08:58→23:57)
[2021-05-01] MEDS: ENOXAPARIN 30 MG/0.3 ML SQ SCH (08:58)
--- NOTE | 2021-05-01 10:51 | RAD REPORT ---
EXAM DESCRIPTION: RAD - Abdomen 1 View (KUB) - 05/01/2021 10:07 am CLINICAL HISTORY: SBO COMPARISON: Abdomen 1 View (KUB) dated 04/30/2021; Abdomen 1 View (KUB) dated 01/09/2018; ABDOMEN 1 EW KUB dated 07/26/2012; Chest Abd Pelvis Wo Con dated 04/30/2021 FINDINGS: Minimally improved small bowel dilatation in the right hemiabdomen though with persistent small-bowel dilatation. No acute osseous abnormality.Visualized lungs are unremarkable.No abnormal ca lcifications. The NG tube tip overlies the distal stomach/proximal duodenum. Surgical clips in the ri ght upper quadrant. IMPRESSION: Mild decreased small bowel gaseous dilatation but findings remain consistent with a smal l bowel obstruction.
--- NOTE | 2021-05-01 12:48 | CON ---
Date of Consultation: 04/30/2021 Reason For Consultation: Small bowel obstruction. History Of Present Illness: The patient is an 81-year-old female who presented to the emergency room with some nausea and vomiting and not being able to go the bathroom for several days. The nausea an d vomiting were over the last 3 to 4 days and has improved after she had an NG tube placed yesterday. She was initially recommended for transfer to a tertiary care and she had a mass on her CT scan, bu t upon further discussion with the family and the medical power of transactional attorney, it was noted that corky macias does not want any intervention such as biopsy or surgery, just wants medical treatment and medical management as well as comfort care as needed. Therefore, she was admitted and medical management was begun. She did have an episode of SVT, but she responded to adenosine and IV metoprolol. She is cu rrently resting awake and alert, in no distress at all. She is not passing gas. Has not had a bowel movement since admission, but her nausea and vomiting have markedly improved. No sore throat, runny nose, cough, headaches, or dizziness. No chest pain. No fever or chills. Review of Systems: Otherwise unremarkable. Past Medical History: Significant for Parkinson's, neuropathy, arthritis, hypertension, diabetes, hi story of breast cancer, bilateral mastectomy 20 years ago, cholecystectomy and hysterectomy prior to her surgery. Allergies: REVIEWED. THEY INCLUDE SULFA AND IODINE. Social History: The patient does not smoke or drink. Family History: Noncontributory. Physical Examination: Vitals Signs: Stable. She is afebrile. Heart rate is between 93 and 104. General: She is awake and alert. Head and Neck: No masses. Chest: Clear. Heart: S1, S2. Abdomen: Soft. Hypoactive bowel sounds. Nondistended and nontender. Extremities: Adequately perfused and nontender. Neuro: Nonfocal. Imaging: CT scan of the chest, abdomen and pelvis reviewed, shows an enlarging mass calcified 4.5 cm within the right mesentery of the abdomen at the level of the iliac crest and probably represent car cinoid and is the cause of the small bowel obstruction, which was dilatation of the proximal bowel an d stomach as well. Laboratory Data: White count was 8.6 yesterday, 6.3 today. Band neutrophils are elevated. Coag rev iewed. INR is 1.27. Her lactic acid on admission was 7.5 and it is down to 3.1. Her Procalcitonin was 13.27 on admission. Assessment: Small bowel obstruction, mesenteric mass. Recommendations: Continue n.p.o., G tube, IV fluids and IV antibiotics. Comfort care as far as pain is concerned, and the patient can have ice chips. Her x-ray was done today, slight improvement in t he small bowel obstruction pattern, but still patient with small bowel obstruction. Therefore, I nadya castro recommend just following her small bowel obstruction with clinical exam as well as x-rays as coni baker. Again, as per patient and medical power transactional attorney wishes, no intervention is requested on this pat ient. Therefore, we consult Surgery p.rPearlnPearl LOVE/JAVAD Voice ID: [id number] Report ID: [id number]
[2021-05-01] MEDS ORDERED: CEFEPIME 1 GM/VIAL IV SCH (13:00)
--- NOTE | 2021-05-01 13:18 | P.CNS ---
Date of Consult: 05/01/21 Reason for Consult: COREY Requesting Physician: Josr Lipscomb Chief Complaint: SBO, abdominal mass History of Present Illness: 81F w/ PMHx of DM2, COPD, peripheral neuropathy, depression/anxiety, hypothyroidism, & Parkinson's dse who p/w N/V/abd distention/constipation for several days, found to have SBO & a R pelvic mass. She needed IR biopsy of mass vs surgery but opted for conservative care & no invasive measures. Referred to Nephrology for COREY. Baseline SCr 0.8-1.0 as of Apr 2020. SCr 2.6 on adm. She received IV fluids & gastric decompression via NG tube. SCr improved to 1.8. Allergies iodine Allergy (Mild, Verified 09/11/17 14:30) Itching povidone-iodine [From Betadine] Allergy (Verified 01/07/18 15:42) Unknown soap [From Betadine] Allergy (Verified 01/07/18 15:42) Unknown Sulfa (Sulfonami Allergy (Uncoded 01/07/18 12:53) Unknown Sulfa (Sulfonamide Antibi Allergy (Uncoded 09/29/17 18:08) Unknown Home Medications: B-12 1,000 mcg IM SEECOM 11/25/12 Bupropion HCl [Wellbutrin] 150 mg PO BIDWM 11/25/12 Calcium 600 iu PO BID 11/25/12 Clopidogrel Bisulfate [Plavix*] 75 mg PO DAILY AT SUPPER 11/25/12 Gabapentin [Neurontin] 300 mg PO BREAKFAST 11/25/12 Multivitamin [Daily Multivitamin] 1 tab PO BID 11/25/12 Niacin Sr [Niaspan*] 1,000 mg PO BEDTIME 11/25/12 Thyroid,Pork [[place] Thyroid] 90 mg PO [id number] 11/25/12 Trazodone [Desyrel*] 0.5 tab PO BEDTIME 11/25/12 Turmeric 450 mg PO DAILY AT SUPPER 11/25/12 lamoTRIgine [Lamictal*] 150 mg PO DAILY AT SUPPER 11/25/12 Cyclosporine [Restasis] 2 each OP BID 05/12/15 Fluoxetine HCl [Prozac] 40 mg PO DAILY 05/12/15 Vit A/Vit C/Vit E/Zinc/Copper [Preservision Areds Softgel] 1 each PO BID 05/12/15 Aspirin 1 tab PO DAILY 01/07/18 Carboxymethylcellulos/Glycerin [Refresh Optive Gel Eye Drops] 1 drop OPTH BEDTIME 01/07/18 Gabapentin [Neurontin*] 600 mg PO DAILY AT SUPPER 01/07/18 Montelukast Sodium [Singulair] 10 mg PO BREAKFAST 01/07/18 Propranolol [Inderal LA*] 1 cap PO BID 01/07/18 Sitagliptin Phosphate [Januvia] 1 tab PO LUNCH 01/07/18 Umeclidinium Brm/Vilanterol Tr [Anoro Ellipta 62.5-25 Mcg INH] 1 inh IH DAILY 01/07/18 Ondansetron [Zofran Odt] 4 mg PO QID PRN #15 tab.rapdis 01/12/18 Pantoprazole [Protonix Tab] 40 mg PO DAILY #30 tab 01/12/18 - Past Medical/Surgical History Diabetic: Yes -: parkinsons -: neuropathy -: arthritis -: allergies -: Hypertension -: Diabetes -: Hypothyroidism -: History of breast cancer -: gabriela. mastectomy 20 years back -: cholecystectomy -: hysterectomy - Family History Mother Medical History: Heart disease Father Medical History: Heart disease - Social History Smoking Status: Former smoker Alcohol use: No CD- Drugs: No Caffeine use: Yes Place of Residence: Home Review of Systems General: Weakness Eyes: Unremarkable ENT: Unremarkable Respiratory: Unremarkable Cardiovascular: Unremarkable Gastrointestinal: Nausea, Vomiting, Abdominal Pain, Distention, Constipation Genitourinary: Unremarkable Musculoskeletal: Unremarkable Integumentary: Unremarkable Neurological: Unremarkable Lymphatics: Unremarkable Physical Examination Temp Pulse Resp BP Pulse Ox 98.1 F 99 H 18 157/68 H 95 05/01/21 12:00 05/01/21 12:00 05/01/21 12:00 05/01/21 12:00 05/01/21 12:00 General: Other (Frail looking) HEENT: Atraumatic, Normocephalic, Other (NG tube) Neck: Supple, JVD not distended Respiratory: Clear to auscultation bilaterally, Other (Symmetric chest expansion) Cardiovascular: No rubs, No murmurs Gastrointestinal: Soft and benign, Non-distended Musculoskeletal: No clubbing Integumentary: No warmth Neurological: Other (No new focal deficits) Urinary: Phillips catheter, Other (No bladder distention) External genitalia: Deferred Rectal: Deferred Conclusions/Impression: # COREY 2/2 prerenal state from dec po intake Baseline SCr 0.8-1.0 as of Apr 2020 SCr 2.6 on adm, improved to 1.8 today Cont IV fluid Monitor I/O, renal panel # SBO likely 2/2 R pelvic mass No surg intervention/invasive measures per pt/family request Cont NG tube IV fluids # DM2 Mngt per primary team # Parkinson's dse Per other services # COPD Per primary team
--- NOTE | 2021-05-01 17:28 | P.PN ---
Date of Service: 05/01/21 Subjective: Slight improvement overnight, approximately 800 cc recorded out of NG tube. Patient reports some mild relief of discomfort, no nausea/vomiting No new complaints ROS: 10 point ROS as noted above, otherwise negative Physical exam General: Alert, Oriented x3, appears mildly uncomfortable HEENT: Sclerae nonicteric Respiratory: Nonlabored, diminished at bases bilaterally Cardiovascular: No edema, No murmurs, Irregular heart rate/rhythm (Sinus tachycardia) Gastrointestinal: Distended, Tenderness (Mild diffuse) Musculoskeletal: No tenderness Integumentary: No rashes, No significant lesion Neurological: Normal speech, Normal affect Urinary: Phillips catheter (Placed in ED) Problem List Small bowel obstruction, likely secondary to pelvic mass Pelvic mass, enlarged COREY, likely prerenal COPD NIDDM 2 Parkinson's Depression/anxiety GERD Continue medical management/supportive care IV antibiotics, n.p.o., IV fluids KUB ordered for this morning General surgery consulted NG tube placed yesterday in the ED Continue pain medication as needed Confirm home medications, restart as appropriate when taking p.o. Per medical power of deputy attorney general, patient, one of her caregivers. Patient wishes to be DNR/DNI, but would otherwise want everything else done with the exception of surgery/procedure. She is okay with IV fluids, medications, and even cardioversion if needed. But states if her heart stops, or any sort of cardiopulmonary arrest, she does not want to be resuscitated. Renal function improving with IV fluids Dispo: anticipate DC home in 2-3 days Time Spent Managing Pts Care (In Minutes): 35
[2021-05-01] MEDS ORDERED: KCL 20 MEQ/100 mL IVPB 20 MEQ/100 ML BAG IV SCH (20:00)
[2021-05-01] MEDS: PROPRANOLOL HCL 60 MG SA CAP PO SCH (21:00)
[2021-05-02] MEDS: METRONIDAZOLE 500mg IVPB 500 MG/100 ML BAG IV SCH ×3 (00:23→16:43)
[2021-05-02] MEDS: MORPHINE 2 MG/ML SYR IV PRN (01:49)
[2021-05-02] MEDS: HYDRALAZINE HCL 20 MG/ML VIAL IV PRN (03:35)
[2021-05-02 04:01] LABS: Absolute Lymphocytes (CBC) 0.8 K/uL (0.7-4.9); Basophils % 0.8 % (0-1.3); Hematocrit 41.9 % (36.0-45.0); Lymphocytes % 11.2 % (15.3-44.8); MPV 7.6 fL (7.6-11.3); RBC Red Blood Cell Count 4.45 M/uL (3.86-4.86)
[2021-05-02 04:27] LABS: Magnesium 2.2 mg/dL (1.8-2.4); Potassium 3.6 mmol/L (3.5-5.1)
[2021-05-02 04:31] LABS: Albumin 2.9 g/dL (3.4-5.0); Phosphorus 1.8 mg/dL (2.5-4.9)
--- NOTE | 2021-05-02 06:22 | P.PN ---
Subjective Date of Service: 05/02/21 Chief Complaint: SBO, abdominal mass Subjective: No new changes Physical Examination - Vital Signs Temperature: 97.3 F Blood Pressure: 151/77 Pulse: 99 Respirations: 18 Pulse Ox (%): 94 - Physical Exam General: Other (Frail-looking) HEENT: Normocephalic Neck: Supple, JVD not distended Respiratory: Other (Symmetric chest expansion) Cardiovascular: No rubs, No murmurs Gastrointestinal: Soft and benign, Non-distended Musculoskeletal: No clubbing Integumentary: No warmth Neurological: Normal tone Urinary: Other (No bladder distention) External genitalia: Deferred Rectal: Deferred Assessment And Plan - Plan # COREY 2/2 prerenal state from may po intake Baseline SCr 0.8-1.0 as of Apr 2020 SCr 2.6 on adm, improved to 1.2 today Cont IV fluid Monitor I/O, renal panel # SBO likely 2/2 R pelvic mass No surg intervention/invasive measures per pt/family request Cont NG tube IV fluids # HypoPO4 Phos IV repletion today # DM2 Mngt per primary team # Parkinson's dse Per other services # COPD Per primary team
--- NOTE | 2021-05-02 06:43 | P.PN ---
Date of Service: 05/02/21 Subjective: Reporting some slight improvement, no significant nausea, NG tube remains in place, was 700 cc output Occasional abdominal discomfort, feels abdomen may be slightly less distended Reports she was passing flatus last night, no BM ROS: 10 point ROS as noted above, otherwise negative Physical exam General: Alert, Oriented, appears fatigued HEENT: Sclerae nonicteric Respiratory: Nonlabored, diminished at bases bilaterally Cardiovascular: No edema, No murmurs, Irregular heart rate/rhythm (Sinus tachycardia) Gastrointestinal: Mildly distended, mild diffuse discomfort Musculoskeletal: No tenderness Integumentary: No rashes, No significant lesion Neurological: Normal speech, Normal affect Urinary: Phillips catheter (Placed in ED) Problem List Small bowel obstruction, likely secondary to pelvic mass Pelvic mass, enlarged COREY, prerenal; resolved COPD NIDDM 2 Parkinson's Depression/anxiety GERD Continue medical management/supportive care IV antibiotics, n.p.o., IV fluids Renal function improving with IV fluids. Phillips catheter placed in ED will discontinue in the next 24 hours if improving KUB essentially unchanged, questionable mild improvement Patient reports some passing of flatus, no BM We will recheck in the afternoon, possibly clamping NG tube for trial later today General surgery following peripherally Continue pain medication as needed Confirm home medications, restart as appropriate when taking p.o. Per medical power of assistant city attorney, patient, one of her caregivers. Patient wishes to be DNR/DNI, but would otherwise want everything else done with the exception of surgery/procedure. She is okay with IV fluids, medications, and even cardioversion if needed. But states if her heart stops, or any sort of cardiopulmonary arrest, she does not want to be resuscitated. Dispo: anticipate DC home in 2-3 days If no improvement may need TPN/discussion regarding hospice Time Spent Managing Pts Care (In Minutes): 35
[2021-05-02] MEDS: PROPRANOLOL HCL 60 MG SA CAP PO SCH ×2 (08:09→21:00)
[2021-05-02] MEDS ORDERED: POTASSIUM PHOS IN 0.9 % NACL 15 MMOL/250 ML BAG IV ONE (09:00)
[2021-05-02] MEDS: CEFEPIME 1 GM in NA CHLORIDE 0.9% 100 ML IV SCH (09:30)
[2021-05-02] MEDS: ENOXAPARIN 30 MG/0.3 ML SQ SCH (09:30)
[2021-05-02] MEDS: D5 0.45 NS 1,000 ML IV SCH ×2 (12:30→12:39)
--- NOTE | 2021-05-02 13:08 | RAD REPORT ---
EXAM DESCRIPTION: RAD - Abdomen 1 View (KUB) - 05/02/2021 6:07 am CLINICAL HISTORY: Follow-up obstruction Pain COMPARISON: Abdomen 1 View (KUB) dated 05/01/2021; Abdomen 1 View (KUB) dated 04/30/2021; Abdomen 1 View (KUB) dated 01/09/2018; ABDOMEN 1 VIEW KUB dated 07/26/2012 FINDINGS: Dilated small bowel loops in the central abdomen are again seen, appearing essentially unc hanged to slightly improved. Free air not evident. Enteric tube is in the stomach. No significant bony findings. IMPRESSION: Unchanged to mildly improved small bowel obstruction pattern.
[2021-05-02] MEDS: HOME MED 1 EA UNK (Bupropion Hcl [Wellbutrin] 75 MG Tablet) PO SCH (16:35)
[2021-05-02] MEDS: GABAPENTIN 300 MG CAP PO SCH (16:44)
[2021-05-02] MEDS: lamoTRIgine 150 MG TAB PO SCH (16:44)
[2021-05-02] MEDS: TRAZODONE 50 MG TABLET PO SCH (21:03)
[2021-05-03] MEDS: D5 0.45 NS 1,000 ML IV SCH ×3 (00:34→18:24)
[2021-05-03] MEDS: METRONIDAZOLE 500mg IVPB 500 MG/100 ML BAG IV SCH ×2 (00:35→10:12)
[2021-05-03 06:07] LABS: Hematocrit 42.9 % (36.0-45.0); MPV 7.7 fL (7.6-11.3); RBC Red Blood Cell Count 4.55 M/uL (3.86-4.86)
[2021-05-03 06:13] LABS: Albumin 2.8 g/dL (3.4-5.0); Bilirubin Total 0.7 mg/dL (0.2-1.0); Magnesium 2.1 mg/dL (1.8-2.4); Potassium 3.4 mmol/L (3.5-5.1); Protein, Total 6.9 g/dL (6.4-8.2)
--- NOTE | 2021-05-03 07:39 | RAD REPORT ---
EXAM DESCRIPTION: RAD - Abdomen 1 View (KUB) - 05/03/2021 6:50 am CLINICAL HISTORY: f/u SBO COMPARISON: Abdomen 1 View (KUB) dated 05/02/2021; Abdomen 1 View (KUB) dated 05/01/2021 FINDINGS: NG tube positioning has not changed. Patient shows a fractional improvement in the degree of small bowel dilatation. Multiple distended to mildly dilated small bowel loops remain. No dilation of the large intestine. There is formed stool in the rectum and distal sigmoid colon which would ind icate some degree of antegrade movement and bowel function. No free air or pneumatosis. No suspicious calcifications. No significant bony findings IMPRESSION: Further slight improvement in the small bowel dilatation pattern since prior day imaging . No free air or pneumatosis. Formed stool is no evident in the rectum and distal sigmoid colon indicating some degree of antegrade movement in bowel function.
[2021-05-03] MEDS: HOME MED 1 EA UNK (Bupropion Hcl [Wellbutrin] 75 MG Tablet) PO SCH ×2 (08:00→16:54)
[2021-05-03] MEDS ORDERED: POTASSIUM CL 40 MEQ in NA CHLORIDE 0.9% 500 ML IV SCH (08:00)
[2021-05-03] MEDS: CEFEPIME 1 GM in NA CHLORIDE 0.9% 100 ML IV SCH (08:42)
[2021-05-03] MEDS: ENOXAPARIN 30 MG/0.3 ML SQ SCH (08:43)
[2021-05-03] MEDS: FLUOXETINE 20 MG CAP PO SCH (08:43)
[2021-05-03] MEDS ORDERED: HOME MED 1 EA UNK (Fluoxetine Hcl [Prozac] 40 MG Capsule) PO SCH (09:00)
[2021-05-03] MEDS: PROPRANOLOL HCL 60 MG SA CAP PO SCH ×2 (10:12→20:09)
[2021-05-03] MEDS: KCL 20 MEQ/100 mL IVPB 20 MEQ/100 ML BAG IV SCH ×2 (11:55→14:10)
[2021-05-03] MEDS: lamoTRIgine 150 MG TAB PO SCH (16:54)
[2021-05-03] MEDS: GABAPENTIN 300 MG CAP PO SCH (16:54)
--- NOTE | 2021-05-03 17:43 | P.PN ---
Date of Service: 05/03/21 Subjective: Reporting some slight improvement again, denies nausea Passing some flatus overnight. Still with significant NG tube output Reports she is hungry ROS: 10 point ROS as noted above, otherwise negative Physical exam General: Alert, Oriented, appears fatigued HEENT: Sclerae nonicteric, NG tube in place Respiratory: Nonlabored, diminished at bases bilaterally Cardiovascular: No edema, No murmurs, regular rate/rhythm Gastrointestinal: Soft, nondistended Musculoskeletal: No tenderness Integumentary: No rashes, No significant lesion Neurological: Normal speech, Normal affect Urinary: Phillips catheter (Placed in ED) Problem List Small bowel obstruction, secondary to pelvic mass Pelvic mass, enlarged COREY, prerenal; resolved COPD NIDDM 2 Parkinson's Depression/anxiety GERD Continue medical management/supportive care IV antibiotics Continue IV fluids We will clamp NG tube, can continue with sips/ice chips. Possibly advance to clears later today Renal function improving with IV fluids. Phillips catheter placed in ED will discontinue in the next 24 hours if improving KUB with mild improvement Per medical power of state attorney, patient, one of her caregivers. Patient wishes to be DNR/DNI, but would otherwise want everything else done with the exception of surgery/procedure. She is okay with IV fluids, medications, and even cardioversion if needed. But states if her heart stops, or any sort of cardiopulmonary arrest, she does not want to be resuscitated. Had a brief discussion with the patient today through neuro what her thoughts are in the near future, the possibility of hospice since this mass is enlarging and likely continues to cause the symptoms Dispo: anticipate DC home in 1-2 days If no improvement may need TPN/further discussion regarding hospice Time Spent Managing Pts Care (In Minutes): 35
[2021-05-03] MEDS: TRAZODONE 50 MG TABLET PO SCH (20:09)
[2021-05-03 23:11] VITALS: O2SAT 97
--- NOTE | 2021-05-04 01:21 | PN ---
Date of Progress Note: 05/03/2021 Chief Complaint: SBO, abdominal mass, nausea, vomiting, acute kidney injury secondary to prerenal st ate complicated by acute tubular necrosis. History Of Present Illness: The patient presented to the hospital and creatinine level was 2.6. Javon singerne back in April 2020, was ranging from 0.8 to 1.0. Overall, the patient responded to IV fluid s and renal function improved. Serum creatinine level is 1.2. The patient has pelvic mass and developed SBO. The patient is on NG tube and IV fluids, at this poin t, and the family requested nonsurgical intervention at this point of time. Review of Systems: Denies fever or chills. Physical Examination: Lungs: Clear to auscultation bilaterally. Heart: S1 and S2. Abdomen: Soft. Extremities: No edema. Impression And Plan: 1.Acute kidney injury. Continue IV fluids. Monitor electrolytes and supplement electrolytes as nee ded. 2.Hypophosphatemia, phosphorus IV replacement was ordered. Monitor phosphorus level. 3.Small bowel obstruction, per primary team. 4.Diabetes mellitus. Continue insulin. 5.Chronic obstructive pulmonary disease per primary team. EB/MODL Voice ID: [id number] Report ID: [id number]
[2021-05-04] MEDS: D5 0.45 NS 1,000 ML IV SCH (03:47)
[2021-05-04 05:35] VITALS: BMI 30.3
[2021-05-04 06:09] LABS: Absolute Lymphocytes (CBC) 1.6 K/uL (0.7-4.9); Basophils % 0.7 % (0-1.3); Hematocrit 45.5 % (36.0-45.0); Lymphocytes % 11.1 % (15.3-44.8); MPV 7.7 fL (7.6-11.3); RBC Red Blood Cell Count 4.82 M/uL (3.86-4.86)
[2021-05-04 06:20] LABS: Albumin 2.7 g/dL (3.4-5.0)
[2021-05-04 06:35] LABS: Bilirubin Total 0.4 mg/dL (0.2-1.0); Protein, Total 7.4 g/dL (6.4-8.2)
[2021-05-04 06:37] LABS: Potassium 3.6 mmol/L (3.5-5.1)
[2021-05-04 07:33] LABS: Blood Morphology Comment NOT SEEN (NOT SEEN); Platelet Estimate ADEQ
[2021-05-04] MEDS: HOME MED 1 EA UNK (Bupropion Hcl [Wellbutrin] 75 MG Tablet) PO SCH (08:00)
[2021-05-04] MEDS: ENOXAPARIN 30 MG/0.3 ML SQ SCH (09:53)
[2021-05-04] MEDS: PROPRANOLOL HCL 60 MG SA CAP PO SCH ×2 (09:54→12:07)
[2021-05-04] MEDS: FLUOXETINE 20 MG CAP PO SCH (09:54)
[2021-05-04] MEDS: HYDRALAZINE HCL 20 MG/ML VIAL IV PRN (12:08)
--- NOTE | 2021-05-04 12:33 | PN ---
Date of Progress Note: 05/04/2021 Subjective: The patient was admitted with small bowel obstruction. The patient had acute kidney inj ury secondary to prerenal, dehydration. Creatinine upon admission 2.6. After hydration, creatinine normalized, GFR normalized. Physical Examination: Vital Signs: Blood pressure 146/53, pulse of 62, afebrile. The patient had good urine output of 120 0, positive of 1800. Chest: Clear to auscultation. Heart: S1, S2. Regular. Abdomen: Mild tenderness. No guarding or rebound. Extremities: Trace edema. Neurologic: Alert. No focality. The patient has NG tube. Laboratory Data: Sodium 144, potassium 3.6, bicarb 26, BUN 19, creatinine 0.8, GFR of 62, calcium 9. 1. H and H 14.9/45.5. Current Medications: The patient on include hydralazine, Lovenox, trazodone, gabapentin, fluoxetine, D5 half-normal at 100. Assessment And Plan: 1.Acute kidney injury secondary to prerenal. Obstructive uropathy has been ruled out. Recovered, r esolved. 2.Hypokalemia. We will supplement. 3.Small bowel obstruction as by primary. 4.Hypertension, controlled, optimal. MA/MODL Voice ID: [id number] Report ID: [id number]
[2021-05-04] MEDS: MORPHINE 2 MG/ML SYR IV PRN (12:59)
--- NOTE | 2021-05-04 13:31 | P.DS ---
Admission Date: 04/30/21 Discharge Date: 05/04/21 Disposition: HOSPICE-HOME Discharge Condition: FAIR Reason for Admission: SBO, abdominal mass - Problems (1) Abdominal mass Current Visit: No Status: Acute Qualifiers: Abdominal location: right lower quadrant Qualified Code(s): R19.03 - Right lower quadrant abdominal swelling, mass and lump (2) Diabetes mellitus Current Visit: No Status: Chronic Qualifiers: Diabetes mellitus type: type 2 Diabetes mellitus fci insulin use: without long term care administrator use Diabetes mellitus complication status: with other specified complication Qualified Code(s): E11.69 - Type 2 diabetes mellitus with other specified complication Brief History of Present Illness: 81-year-old female, PMH: COPD, NIDDM 2, neuropathy, depression/anxiety, hypothyroidism, Parkinson's Brought into the ED due to nausea, vomiting, abdominal distention, no bowel movement in several days. In the ED, CT consistent with a small bowel obstruction, and noted to have a right pelvic mass which is likely the cause of this obstruction. General surgery was consulted, who recommended transfer to tertiary care center for IR, possible biopsy. Patient and patient's MPOA stated that she does not want to go and proceed with any surgical option, but she would like to continue with medical management. For this reason, she remained in this hospital for admission Patient also presented to the ED in SVT, heart rate in the 170s, which responded to adenosine, and IV metoprolol. She was given sepsis bolus, lactate found to be significantly elevated and which subsequently improved with IV fluids. Patient hospitalized for further management. Hospital Course: Patient admitted to the medical floor, NG tube to suction placed, started on antibiotics. He did not have bowel movement. Her NG tube output is slowly improved. NG tube was subsequently clamped and patient started on ice chips. NG tube was removed and patient tolerated clear liquid diet. Patient and family requested for hospice. Patient has been accepted and discharged to home with hospice. Vital Signs/Physical Exam: Temp Pulse Resp BP Pulse Ox 96.3 F L 61 18 212/89 H 97 05/04/21 12:00 05/04/21 12:00 05/04/21 12:00 05/04/21 12:00 05/04/21 12:00 General: Alert, In no apparent distress HEENT: Sclerae nonicteric Neck: Supple, JVD not distended Respiratory: Clear to auscultation bilaterally, Normal air movement Cardiovascular: No edema, Regular rate/rhythm, Normal S1 S2 Gastrointestinal: Normal bowel sounds, Soft and benign, Non-distended, No tenderness Musculoskeletal: No swelling Integumentary: No rashes, No erythema Neurological: Normal strength at 5/5 x4 extr Laboratory Data at Discharge: WBC 14.00 K/uL (4.3-10.9) H D 05/04/21 05:31 Hgb 14.9 g/dL (12.0-15.0) 05/04/21 05:31 Hct 45.5 % (36.0-45.0) H 05/04/21 05:31 Plt Count 328 K/uL (152-406) 05/04/21 05:31 PT 14.6 SECONDS (9.5-12.5) H 04/30/21 09:52 INR 1.27 04/30/21 09:52 Sodium 144 mmol/L (136-145) 05/04/21 05:31 Potassium 3.6 mmol/L (3.5-5.1) 05/04/21 05:31 BUN 19 mg/dL (7-18) H 05/04/21 05:31 Creatinine 0.88 mg/dL (0.55-1.3) 05/04/21 05:31 Glucose 148 mg/dL (74-106) H 05/04/21 05:31 Phosphorus 2.2 mg/dL (2.5-4.9) L 05/03/21 05:34 Magnesium 2.0 mg/dL (1.8-2.4) 05/04/21 05:31 Total Bilirubin 0.4 mg/dL (0.2-1.0) 05/04/21 05:31 AST 19 U/L (15-37) 05/04/21 05:31 ALT 18 U/L (12-78) 05/04/21 05:31 Alkaline Phosphatase 89 U/L (45-117) 05/04/21 05:31 Lipase 117 U/L (73-393) 04/30/21 09:52 Home Medications: Bupropion HCl [Wellbutrin] 150 mg PO BIDWM 11/25/12 Gabapentin [Neurontin] 300 mg PO BREAKFAST 11/25/12 Thyroid,Pork [[place] Thyroid] 90 mg PO [id number] 11/25/12 Trazodone [Desyrel*] 0.5 tab PO BEDTIME 11/25/12 lamoTRIgine [Lamictal*] 150 mg PO DAILY AT SUPPER 11/25/12 Cyclosporine [Restasis] 2 each OP BID 05/12/15 Fluoxetine HCl [Prozac] 40 mg PO DAILY 05/12/15 Carboxymethylcellulos/Glycerin [Refresh Optive Gel Eye Drops] 1 drop OPTH BEDTIME 01/07/18 Gabapentin [Neurontin*] 600 mg PO DAILY AT SUPPER 01/07/18 Montelukast Sodium [Singulair] 10 mg PO BREAKFAST 01/07/18 Propranolol [Inderal LA*] 1 cap PO BID 01/07/18 Umeclidinium Brm/Vilanterol Tr [Anoro Ellipta 62.5-25 Mcg INH] 1 inh IH DAILY 01/07/18 Ondansetron [Zofran Odt] 4 mg PO QID PRN #15 tab.rapdis 01/12/18 Pantoprazole [Protonix Tab*] 40 mg PO DAILY #30 tab 01/12/18 Physician Discharge Instructions: Pleasure feeding. Followup: Nakia De Dios NP [Primary Care Provider] - Time spent managing pt's care (in minutes): 37
[2021-05-04 18:37] VITALS: BP 108/53; TEMP 97.1
== END 2021-05-04 16:25 | disposition hospice, home (50) | DRG 388 ==
LOC: ER 09:05 → ERHOLD 16:56 → 2ND 05-01 14:58
PROVIDERS: ADMIT Hospitalist; ATTEND Internal Medicine
DX: K56.609 Unspecified intestinal obstruction, unspecified as to partial versus complete obstruction (principal); N17.0 Acute kidney failure with tubular necrosis; I47.1 Supraventricular tachycardia; R19.00 Intra-abdominal and pelvic swelling, mass and lump, unspecified site; F32.A Depression, unspecified; F41.9 Anxiety disorder, unspecified; K21.9 Gastro-esophageal reflux disease without esophagitis; G20 Parkinson's disease; I10 Essential (primary) hypertension; K59.00 Constipation, unspecified; E83.39 Other disorders of phosphorus metabolism; E86.0 Dehydration; E03.9 Hypothyroidism, unspecified; E11.69 Type 2 diabetes mellitus with other specified complication; E87.6 Hypokalemia; E11.40 Type 2 diabetes mellitus with diabetic neuropathy, unspecified; J44.9 Chronic obstructive pulmonary disease, unspecified; Z88.1 Allergy status to other antibiotic agents; Z91.048 Other nonmedicinal substance allergy status; Z79.82 Long term (current) use of aspirin; Z79.84 Long term (current) use of oral hypoglycemic drugs; Z79.02 Long term (current) use of antithrombotics/antiplatelets; Z79.899 Other long term (current) drug therapy; Z85.3 Personal history of malignant neoplasm of breast; Z90.710 Acquired absence of both cervix and uterus; Z90.13 Acquired absence of bilateral breasts and nipples; Z87.891 Personal history of nicotine dependence; Z20.822 Contact with and (suspected) exposure to COVID-19
CPT/HCPCS: 36415; 71045; 71250; 74018; 74176; 80048; 80053; 80076; 81003; 81015; 82040; 82947; 83605; 83690; 83735; 83880; 84100; 84132; 84145; 84484; 85025; 85027; 85610; 87040; 87086; 87088; 93005; 99285; C9113; J0153; J0360; J0692; J0744; J1650; J2270; J2405; J3480; J7030; J7040; J7799; U0003